=== PATIENT | female | born 1980 | race Caucasian/White ===

== ENCOUNTER 2016-04-17 08:14 | Inpatient (IN) | payer MEDICAID ==
[2016-04-17 09:11] LABS: ABSOLUTE BASOPHILS # (AUTO) 0.1 10^3/uL (0.0-0.2); ABSOLUTE EOSINOPHILS # (AUTO) 0.1 10^3/uL (0.0-0.6); ABSOLUTE LYMPHOCYTES (AUTO) 2.2 10^3/uL (0.5-4.7); ABSOLUTE MONOCYTES (AUTO) 0.8 10^3/uL (0.1-1.4); ABSOLUTE NEUT (AUTO) 6.5 10^3/uL (1.7-8.2); BASOPHILS % (AUTO) 0.8 % (0-2); EOSINOPHILS % (AUTO) 1.4 % (0-6); HEMOGLOBIN 13.7 g/dL (12.0-15.5); HGB HCT DIFFERENCE -0.9; LYMPHOCYTES % (AUTO) 22.6 % (13-45); MEAN CORPUSCULAR HEMOGLOBIN 27.4 pg (27.0-33.4); MEAN CORPUSCULAR HGB CONC 32.5 g/dL (32.0-36.0); MEAN CORPUSCULAR VOLUME 84 fl (80-97); MONOCYTES % (AUTO) 8.1 % (3-13); RED BLOOD COUNT 4.99 10^6/uL (3.72-5.28); RED CELL DISTRIBUTION WIDTH 14.4 % (11.5-14.0); SEGMENTED NEUTROPHILS % (AUTO) 67.1 % (42-78); WHITE BLOOD COUNT 9.6 10^3/uL (4.0-10.5)
[2016-04-17 09:26] LABS: ALANINE AMINOTRANSFERASE 39 U/L (9-52); ALBUMIN 4.5 g/dL (3.5-5.0); ALKALINE PHOSPHATASE 68 U/L (38-126); ANION GAP 10 (5-19); ASPARTATE AMINO TRANSFERASE 35 U/L (14-36); BILIRUBIN,TOTAL 0.5 mg/dL (0.2-1.3); BLOOD UREA NITROGEN 11 mg/dL (7-20); CALCIUM 9.1 mg/dL (8.4-10.2); CARBON DIOXIDE 28 mmol/L (22-30); CHLORIDE 106 mmol/L (98-107); CREATININE RESULT 0.66 mg/dL (0.52-1.25); GLUCOSE 93 mg/dL (75-110); LIPASE 34.9 U/L (23-300); SODIUM 144.4 mmol/L (137-145); TOTAL PROTEIN 7.7 g/dL (6.3-8.2)
[2016-04-17 09:43] LABS: APPEARANCE,URINE CLOUDY; BILIRUBIN,URINE NEGATIVE (NEGATIVE); GLUCOSE, URINE NEGATIVE (NEGATIVE); KETONES,URINE NEGATIVE (NEGATIVE); LEUKOCYTE ESTERASE,URINE SMALL (NEGATIVE); NITRITE,URINE NEGATIVE (NEGATIVE); PROTEIN,URINE NEGATIVE (NEGATIVE); URINE SPECIFIC GRAVITY 1.025; UROBILINOGEN,URINE NEGATIVE mg/dL (<2.0)
[2016-04-17] MEDS ORDERED: HYDROCODONE/ACETAMINOPHEN 5-325 MG TABLET PO ONE (10:31)
[2016-04-17] MEDS ORDERED: KETOROLAC TROMETHAMINE INJ/PF 30 MG/1 ML SDV IV ONE (10:31)
--- NOTE | 2016-04-17 10:31 | ER Document Report ---
ED GI/ - General Chief Complaint: Abdominal Pain Stated Complaint: ABDOMINAL PAIN Notes: The patient is a 35-year-old female (spontaneous miscarriages), presents with 1 day of right lower quadrant abdominal pain. She says that the pain is worse when she places pressure on it. She has never had this in the past. Took Motrin without much relief. Denies vaginal discharge, vaginal bleeding, fevers, dysuria, flank pain, nausea, vomiting, back pain or rash. TRAVEL OUTSIDE OF THE [place] IN LAST 30 DAYS: No - Related Data Allergies/Adverse Reactions: Penicillins Allergy (Severe, Verified 04/17/16 08:17) stop breathing, hives Sulfa (Sulfonamide Antibiotics) Allergy (Severe, Verified 04/17/16 08:17) Hives Metal Allergy (Uncoded 04/17/16 08:17) Home Medications: Current Home Medications No Home Medications 04/17/16 [History] Past Medical History - General Information source: Patient - Social History Smoking Status: Never Smoker Chew tobacco use (# tins/day): No Frequency of alcohol use: None Drug Abuse: None Family History: Reviewed & Not Pertinent Patient has suicidal ideation: No Patient has homicidal ideation: No - Past Medical History Cardiac Medical History: Denies: Hx Coronary Artery Disease, Hx Heart Attack, Hx Hypertension Pulmonary Medical History: Denies: Hx Asthma, Hx Bronchitis, Hx COPD, Hx Pneumonia Neurological Medical History: Denies: Hx Cerebrovascular Accident, Hx Seizures Renal/ Medical History: Denies: Hx Peritoneal Dialysis Musculoskeltal Medical History: Denies Hx Arthritis Past Surgical History: Reports: Hx Gynecologic Surgery - LEEP - Immunizations Immunizations up to date: Yes Hx Diphtheria, Pertussis, Tetanus Vaccination: No - Unsure Review of Systems - Review of Systems Notes: REVIEW OF SYSTEMS: CONSTITUTIONAL: -fevers, -chills EENT: -eye pain, -difficulty swallowing, -nasal congestion CARDIOVASCULAR: -chest pain, -syncope. RESPIRATORY: -cough, -SOB GASTROINTESTINAL: +abdominal pain, -nausea, -vomiting, -diarrhea GENITOURINARY: -dysuria, -hematuria MUSCULOSKELETAL: -back pain, -neck pain SKIN: -rash or skin lesions. HEMATOLOGIC: -easy bruising or bleeding. LYMPHATIC: -swollen, enlarged glands. NEUROLOGICAL: -altered mental status or loss of consciousness, -headache, - neurologic symptoms PSYCHIATRIC: -anxiety, -depression. ALL OTHER SYSTEMS REVIEWED AND NEGATIVE. Physical Exam - Vital signs Vitals: Pulse BP Pulse Ox 64 119/77 98 04/17/16 13:47 04/17/16 13:47 04/17/16 13:47 Temp 98.0, Pulse 85, BP 139/84, RR 16, Pulse Ox 99% on RA Interpretation: Normal - Notes Notes: PHYSICAL EXAMINATION: GENERAL: Well-appearing, well-nourished and in no acute distress. HEAD: Atraumatic, normocephalic. EYES: Pupils equal round and reactive to light, extraocular movements intact, sclera anicteric, conjunctiva are normal. ENT: nares patent, oropharynx clear without exudates. Moist mucous membranes. NECK: Normal range of motion, supple without lymphadenopathy LUNGS: Breath sounds clear to auscultation bilaterally and equal. No wheezes rales or rhonchi. HEART: Regular rate and rhythm without murmurs ABDOMEN: RLQ tenderness. Soft, normoactive bowel sounds. No guarding, no rebound. No masses appreciated. : Non-tender right and left adnexal tenderness. No vaginal discharge. No CMT. EXTREMITIES: Normal range of motion, no pitting or edema. No cyanosis. NEUROLOGICAL: Cranial nerves grossly intact. Normal speech, normal gait. Normal sensory, motor, and reflex exams. PSYCH: Normal mood, normal affect. SKIN: Warm, Dry, normal turgor, no rashes or lesions noted. Course - Re-evaluation Re-evalutation: Concern for ovarian torsion with right lower quadrant abdominal pain. Ultrasound shows left ovarian cysts but no right ovarian cyst. Good blood flow and no evidence of torsion. CT obtained to assess for appendicitis due to the abdominal tenderness in the right lower quadrant. CT does not show any appendicitis but does show a possible left ovarian abscess versus malignancy with large fluid collection in the right lower quadrant. Spoke to Dr. Perdue and he has accepted patient as inpatient for further evaluation of this ovarian abscess versus malignancy. She is denying any current pain other than a very mild frontal headache, which she has had in the past. - Vital Signs Vital signs: Temp Pulse Resp BP Pulse Ox 97.5 F 76 16 138/85 H 98 04/17/16 17:06 04/17/16 16:59 04/17/16 16:59 04/17/16 16:59 04/17/16 16:59 - Laboratory Result Diagrams: 04/17/16 08:56 04/17/16 08:56 Laboratory results interpreted by me: 04/17/16 04/17/16 08:56 09:15 RDW 14.4 H Ur Leukocyte Esterase SMALL H Urine Ascorbic Acid 40 H Discharge - Discharge Clinical Impression: Left tubo-ovarian abscess Condition: Stable Disposition: ADMITTED INPATIENT Admitting Provider: Dr. Escalante Unit Admitted: Labor and Delivery
[2016-04-17] MEDS ORDERED: NORMAL SALINE 1000 ML 1,000 ML IV ONE (16:06)
[2016-04-17] MEDS ORDERED: METRONIDAZOLE 500 MG/NS RTU 100 ML IV ONE (16:12)
[2016-04-17] MEDS ORDERED: ONDANSETRON HCL INJ/PF 4 MG/2 ML SDV IV PRN (18:15)
[2016-04-17] MEDS ORDERED: ACETAMINOPHEN 325 MG TABLET PO PRN (18:15)
[2016-04-17] MEDS ORDERED: CLINDAMYCIN 900 MG/D5W RTU 50 ML IV ONE (19:00)
[2016-04-17] MEDS ORDERED: CIPROFLOXACIN 400 MG/D5W RTU 200 ML IV SCH (22:00)
[2016-04-17] MEDS: GENTAMICIN SULFATE 160 MG in DEXTROSE 5%-WATER 100 ML IV SCH (22:04)
[2016-04-17] MEDS: ZOLPIDEM TARTRATE 5 MG TABLET PO PRN (22:04)
[2016-04-18 01:24] LABS: CHLAM PCR NOT DETECTED (NOT DETECT)
[2016-04-18] MEDS: CLINDAMYCIN 900 MG/D5W RTU 50 ML IV SCH ×3 (03:56→18:09)
[2016-04-18] MEDS: GENTAMICIN SULFATE 160 MG in DEXTROSE 5%-WATER 100 ML IV SCH ×3 (06:11→21:32)
[2016-04-18 06:57] LABS: ABSOLUTE EOSINOPHILS # (AUTO) 0.1 10^3/uL (0.0-0.6); ABSOLUTE LYMPHOCYTES (AUTO) 1.9 10^3/uL (0.5-4.7); ABSOLUTE MONOCYTES (AUTO) 0.6 10^3/uL (0.1-1.4); ABSOLUTE NEUT (AUTO) 5.6 10^3/uL (1.7-8.2); BASOPHILS % (AUTO) 0.5 % (0-2); EOSINOPHILS % (AUTO) 1.7 % (0-6); HEMATOCRIT 38.7 % (36.0-47.0); HEMOGLOBIN 12.7 g/dL (12.0-15.5); HGB HCT DIFFERENCE -0.6; LYMPHOCYTES % (AUTO) 22.8 % (13-45); MEAN CORPUSCULAR HEMOGLOBIN 27.9 pg (27.0-33.4); MEAN CORPUSCULAR HGB CONC 32.9 g/dL (32.0-36.0); MEAN CORPUSCULAR VOLUME 85 fl (80-97); MONOCYTES % (AUTO) 7.1 % (3-13); RED BLOOD COUNT 4.57 10^6/uL (3.72-5.28); RED CELL DISTRIBUTION WIDTH 14.4 % (11.5-14.0); SEGMENTED NEUTROPHILS % (AUTO) 67.9 % (42-78); WHITE BLOOD COUNT 8.2 10^3/uL (4.0-10.5)
[2016-04-18] MEDS ORDERED: OXYCODONE-ACETAMINOPHEN 5-325 MG TABLET PO PRN (09:58)
--- NOTE | 2016-04-18 10:18 | PDOC PROGRESS REPORT ---
Subjective Progress Note for:: 04/18/16 Subjective:: still c/o pain with movement. no nausea or vomiting. also c/o headache (has h/o of migraines and states this feels like mild one) Physical Exam - Physical Exam Vital Signs: Temp Pulse Resp BP Pulse Ox 98.4 F 78 20 108/58 L 98 04/18/16 04:00 04/18/16 04:00 04/18/16 04:00 04/18/16 04:00 04/18/16 04:00 Intake & Output 04/17/16 04/18/16 04/19/16 06:59 06:59 06:59 Intake Total 500 Balance 500 Weight 102.4 kg General appearance: PRESENT: no acute distress, cooperative Respiratory exam: PRESENT: clear to auscultation mike Cardiovascular exam: PRESENT: RRR GI/Abdominal exam: PRESENT: normal bowel sounds, soft, tenderness - tender rlq. no guarding or rebound. ABSENT: distended, guarding, mass, organolmegaly, rebound Extremities exam: PRESENT: calf tenderness Result Laboratory Results: 04/18/16 06:18 04/18/16 06:18 WBC 8.2 RBC 4.57 Hgb 12.7 Hct 38.7 MCV 85 MCH 27.9 MCHC 32.9 RDW 14.4 H Plt Count 287 Seg Neutrophils % 67.9 Lymphocytes % 22.8 Monocytes % 7.1 Eosinophils % 1.7 Basophils % 0.5 Absolute Neutrophils 5.6 Absolute Lymphocytes 1.9 Absolute Monocytes 0.6 Absolute Eosinophils 0.1 Absolute Basophils 0.0 Impressions: Pelvis Ultrasound 04/17/16 10:05 IMPRESSION: Complex left ovarian cyst as noted above. Followup recommendations are as noted below. Other findings as noted above Abdomen/Pelvis CT 04/17/16 13:01 IMPRESSION: Multiloculated the cystic lesion seen in the region of the left adnexa which could represent underlying abscess versus cystic malignancy though abscess is favored in this case. There appears to be of inflammatory changes surrounding the lesion. There also appears to be separate fluid collections in the right lower quadrant and right mid abdomen which appear to connected to this larger cystic collection as detailed above. Assessment & Plan - Diagnosis (1) Left tubo-ovarian abscess Is this a current diagnosis for this admission?: YesPlan: plan to continue iv antibiotics for at least full 24 hours. if no fever, nausea , vomiting will d/c home on antibiotics
[2016-04-18] MEDS: RINGERS SOLUTION,LACTATED 1,000 ML IV PRN (10:42)
[2016-04-18] MEDS: OXYCODONE-ACETAMINOPHEN 5-325 MG TABLET PO PRN ×2 (10:42→18:14)
[2016-04-18 22:58] LABS: GENTAMICIN-TROUGH 1.8 ug/mL (<2.0)
[2016-04-19] MEDS: ZOLPIDEM TARTRATE 5 MG TABLET PO PRN (00:24)
[2016-04-19 00:55] LABS: GENTAMICIN-PEAK 7.6 ug/mL (5.0-10.0)
[2016-04-19] MEDS: CLINDAMYCIN 900 MG/D5W RTU 50 ML IV SCH (01:10)
[2016-04-19] MEDS: GENTAMICIN SULFATE 160 MG in DEXTROSE 5%-WATER 100 ML IV SCH (05:13)
[2016-04-19] MEDS: OXYCODONE-ACETAMINOPHEN 5-325 MG TABLET PO PRN (06:06)
[2016-04-19] MEDS: RINGERS SOLUTION,LACTATED 1,000 ML IV PRN (08:05)
[2016-04-19 09:05] VITALS: BP 122/77
--- NOTE | 2016-04-19 10:33 | DISCHARGE SUMMARY E ---
Discharge Summary NAME: JAYLENE HENDERSON : 1980 AGE: 35Y ADMITTED: 04/17/2016 DISCHARGED: 04/19/2016 INDICATIONS FOR ADMISSION : Pelvic pain with suspected tuboovarian abscess. HOSPITAL COURSE: The patient is a 35-year-old, G2, P1-0-1-1 who has baseline oligomenorrhea who came in with right lower quadrant pain for a day. She had no fevers or chills. On admission, her white count was 9.6. CT showed an 8.4 x 5.9 x 8-cm cystic lesion in the left adnexa that radiology thought was consistent with tuboovarian abscess. The ultrasound also showed this structure. To my interpretation on ultrasound it looked like a possible hydrosalpinx. The patient remained afebrile throughout the course of her stay and did not have an elevated white count throughout the course of her stay. She had adequate pain control and was tolerating regular diet throughout. She was placed on clindamycin and gentamicin to cover for possible tuboovarian abscess. She had normal GI function and no dysuria. At the time of discharge, she still had some pain, but it was well controlled with Percocet. DISCHARGE DIAGNOSIS: Possible tuboovarian abscess versus left ovarian cystic structure versus hydrosalpinx. PLAN: The patient will be discharged to home on doxycycline 100 mg p.o. b.i.d. for 2 more weeks. She was also given prescriptions for Motrin 800 mg 1 p.o. t.i.d. p.r.n. #50 with no refills and Percocet 5/325 one to two p.o. q.i.d. p.r.n. #30 with no refills. She is advised to be on pelvic rest. Her GC Chlamydia testing was negative and her urine test was negative. She had been oligomenorrheic, but started a period during the course of her hospital stay. She will follow up in 2 weeks. She was offered surgery during the course of her stay, but declined. We discussed that we will need to follow this cystic structure and if it does not resolve, would schedule surgery in an outpatient fashion in 6 weeks or so. DICTATING PHYSICIAN: ISH MEDINA M.D. [id number] PHY#: [id number] ID: [id number] JOB#: [id number] ACCT: [id number] cc:ISH MEDINA M.D. >
== END 2016-04-19 11:15 | disposition home or self-care (01) | DRG 758 ==
LOC: ER 08:14 → UNDOADMIN 16:32 → EH 16:32 → 2N 17:57
PROVIDERS: ADMIT Obstetrics & Gynecology; ATTEND Obstetrics & Gynecology
DX: N70.93 Salpingitis and oophoritis, unspecified (principal); Z68.41 Body mass index [BMI] 40.0-44.9, adult; N91.5 Oligomenorrhea, unspecified; Z88.0 Allergy status to penicillin; Z88.2 Allergy status to sulfonamides; Z91.048 Other nonmedicinal substance allergy status; E66.3 Overweight
CPT/HCPCS: 36415; 74177; 76856; 80053; 80170; 81001; 81025; 83690; 85025; 87491; 87591; 93976; 96374; 99285; J1580; J1885; J2405; J7030; J7120

== ENCOUNTER → 2017-02-10 | Outpatient (CLI) | payer MEDICAID ==
--- NOTE | 2017-02-10 23:10 | EKG REPORT ---
SEVERITY:- ABNORMAL ECG - SINUS RHYTHM NONSPECIFIC T ABNORMALITIES, ANTERIOR LEADS : Confirmed by: Kailey Swann 10-Feb-2017 23:10:12
== END ==
LOC: OD 13:53
PROVIDERS: ATTEND Nurse Practitioner
DX: I10 Essential (primary) hypertension (principal)
CPT/HCPCS: 93005; 93010

== ENCOUNTER 2017-02-17 13:31 | Emergency (ER) | payer MEDICAID ==
[2017-02-17] MEDS ORDERED: HYDROMORPHONE HCL INJ/PF 2 MG/ML AMPULE IV ONE ×2 (14:03→15:50)
[2017-02-17] MEDS ORDERED: ONDANSETRON HCL INJ/PF 4 MG/2 ML SDV IV ONE ×2 (14:03→15:51)
[2017-02-17 14:41] LABS: ABSOLUTE EOSINOPHILS # (AUTO) 0.1 10^3/uL (0.0-0.6); ABSOLUTE LYMPHOCYTES (AUTO) 1.5 10^3/uL (0.5-4.7); ABSOLUTE MONOCYTES (AUTO) 0.7 10^3/uL (0.1-1.4); ABSOLUTE NEUT (AUTO) 5.8 10^3/uL (1.7-8.2); BASOPHILS % (AUTO) 0.3 % (0-2); EOSINOPHILS % (AUTO) 1.2 % (0-6); HEMATOCRIT 40.2 % (36.0-47.0); HGB HCT DIFFERENCE 1.8; LYMPHOCYTES % (AUTO) 18.5 % (13-45); MEAN CORPUSCULAR HEMOGLOBIN 32.6 pg (27.0-33.4); MEAN CORPUSCULAR HGB CONC 34.8 g/dL (32.0-36.0); MEAN CORPUSCULAR VOLUME 94 fl (80-97); MONOCYTES % (AUTO) 8.3 % (3-13); RED BLOOD COUNT 4.28 10^6/uL (3.72-5.28); RED CELL DISTRIBUTION WIDTH 13.2 % (11.5-14.0); SEGMENTED NEUTROPHILS % (AUTO) 71.7 % (42-78); WHITE BLOOD COUNT 8.1 10^3/uL (4.0-10.5)
[2017-02-17 14:57] LABS: ALANINE AMINOTRANSFERASE 52 U/L (9-52); ALKALINE PHOSPHATASE 62 U/L (38-126); ANION GAP 11 (5-19); ASPARTATE AMINO TRANSFERASE 24 U/L (14-36); BILIRUBIN,TOTAL 0.4 mg/dL (0.2-1.3); BLOOD UREA NITROGEN 16 mg/dL (7-20); CALCIUM 9.5 mg/dL (8.4-10.2); CARBON DIOXIDE 30 mmol/L (22-30); CHLORIDE 100 mmol/L (98-107); CREATININE RESULT 0.63 mg/dL (0.52-1.25); GLUCOSE 105 mg/dL (75-110); SODIUM 141.1 mmol/L (137-145); TOTAL PROTEIN 6.6 g/dL (6.3-8.2)
--- NOTE | 2017-02-17 15:09 | ER Document Report ---
ED General - General Chief Complaint: Wound Infection Stated Complaint: POST SURGERY PAIN Time Seen by Provider: 02/17/17 13:50 Mode of Arrival: Ambulatory Information source: Patient Notes: Patient is a 36-year-old female comes emergency room with a complaint of postop infection and pain. Patient states that on the 13th of this month she had internal hernia repair done laparoscopically. Dr. Mateo Lopez performed the surgery. Patient states that one area on the right side of her abdomen shows a small area that appears infected. She states her veplum-gn-tot is a nurse she took a picture and send it to her and she replied that it was possible infection to go to the ER get it checked out. Patient made one attempt to contact the surgeon but has not had a recall back as of this time. Patient states that the area hurts constantly that it hurts to walk and is very tender to touch. She denies any nausea or vomiting since her surgery patient has been improving on her diet been eating and drinking well has denied any fevers no cough or shortness of breath. TRAVEL OUTSIDE OF THE [place] IN LAST 30 DAYS: No - HPI Patient complains to provider of: Postop pain and/infection Onset: Other - 3 days Onset/Duration: Gradual, Persistent Quality of pain: Achy, Sharp Severity: Moderate Pain Level: 3 Associated symptoms: denies: None, Allergy/hay fever, Body/muscle aches, Chest pain, Chills, Nonproductive cough, Productive cough, Diarrhea, Drooling, Earache , Fever, Headache, Hoarseness, Hurts to breath, Leg swelling, Nausea, Vomiting, Sinus pain/drainage, Shortness of breath, Slow to respond, Sore throat, Sweating , Weakness, Other Exacerbated by: Supine, Sitting, Standing, Movement, Walking Relieved by: Other - Position Similar symptoms previously: No Recently seen / treated by doctor: Yes - Related Data Allergies/Adverse Reactions: Penicillins Allergy (Severe, Verified 02/17/17 13:32) stop breathing, hives Sulfa (Sulfonamide Antibiotics) Allergy (Severe, Verified 02/17/17 13:32) Hives Metal Allergy (Uncoded 02/17/17 13:32) Past Medical History - General Information source: Patient Last Menstrual Period: N/a - Social History Smoking Status: Former Smoker Chew tobacco use (# tins/day): No Smoking Education Provided: No Frequency of alcohol use: None Drug Abuse: None Lives with: Family Family History: Reviewed & Not Pertinent Patient has suicidal ideation: No Patient has homicidal ideation: No - Past Medical History Cardiac Medical History: Reports: Hx Hypertension Denies: Hx Coronary Artery Disease, Hx Heart Attack Pulmonary Medical History: Denies: Hx Asthma, Hx Bronchitis, Hx COPD, Hx Pneumonia Neurological Medical History: Denies: Hx Cerebrovascular Accident, Hx Seizures Renal/ Medical History: Denies: Hx Peritoneal Dialysis Musculoskeltal Medical History: Denies Hx Arthritis Psychiatric Medical History: Denies: Hx Depression Past Surgical History: Reports: Hx Gynecologic Surgery - LEEP - Immunizations Immunizations up to date: Yes Hx Diphtheria, Pertussis, Tetanus Vaccination: No - Unsure Review of Systems - Review of Systems Constitutional: No symptoms reported EENT: No symptoms reported Cardiovascular: No symptoms reported Respiratory: No symptoms reported Gastrointestinal: Abdomen distended, Abdominal pain, Nausea Genitourinary: No symptoms reported Female Genitourinary: No symptoms reported Musculoskeletal: No symptoms reported Skin: No symptoms reported Hematologic/Lymphatic: No symptoms reported Neurological/Psychological: No symptoms reported -: Yes All other systems reviewed and negative Physical Exam - Vital signs Vitals: Temp Pulse Resp BP Pulse Ox 98.1 F 91 20 131/84 H 95 02/17/17 13:41 02/17/17 13:41 02/17/17 13:41 02/17/17 13:41 02/17/17 13:41 Interpretation: Hypertensive - General General appearance: Alert, Other - Uncomfortable. - HEENT Head: Normocephalic Eyes: Normal Conjunctiva: Normal Nasal: Normal Mouth/Lips: Normal Mucous membranes: Normal, Moist Pharynx: Normal Neck: Normal - Respiratory Respiratory status: No respiratory distress Chest status: Nontender Breath sounds: Normal. No: Decreased air movement, Nonproductive cough, Productive cough, Rales, Rhonchi, Stridor, Wheezing, Other - Cardiovascular Rhythm: Regular Heart sounds: Normal auscultation Murmur: No - Abdominal Inspection: Morbidly Obese, Other - Termination of patient's external abdomen shows it to be rotund. There are multiple areas of where laparoscopic insertion points were along with the mid incision running from the suprapubic to just below the umbilicus. Distension: Distended. No: No distension, Tympanitic, Fluid wave, Distended bladder, Other Bowel sounds: Normal Tenderness: Tender, McBurney's point, Other - Further examination of the abdomen shows her to have increased discomfort in right lower quadrant up to and including the umbilicus. There is positive peritoneal signs with a positive psoas positive obturator. Organomegaly: No organomegaly - Neurological Neuro grossly intact: Yes Orientation: AAOx4 Michelle Coma Scale Eye Opening: Spontaneous [place] Coma Scale Verbal: Oriented [place] Coma Scale Motor: Obeys Commands Michelle Coma Scale Total: 15 - Skin Skin Temperature: Warm Skin Moisture: Dry Skin Color: Normal, [place], Other - Examination of patient's area of concern is in the right lower quadrant just about 7:00 from the umbilicus small area where a incisional cut was made to advance the fiberoptics. The area itself is closed and healed there is a slight probable 1 cm or less circumference erythema with the surgical cut in the middle. There is no opening to this. There is no drainage. There is moderate to/severe tenderness to the area. Patient is nontender at the site or superficial touching of the area. Any amount of pressure applied though increases pain significantly. Patient also has rebound in that right lower quadrant area. Course - Vital Signs Vital signs: Temp Pulse Resp BP Pulse Ox 98.1 F 91 20 131/84 H 95 02/17/17 13:41 02/17/17 13:41 02/17/17 13:41 02/17/17 13:41 02/17/17 13:41 - Laboratory Result Diagrams: 02/17/17 14:25 02/17/17 14:25 Laboratory results interpreted by me: 02/17/17 14:52 Urine Ascorbic Acid 20 H - Diagnostic Test Radiology reviewed: Reports reviewed - CT of the abdomen and pelvis showed no acute findings. They did find edema/surgical scarring on the right side we had the discomfort and pain. There are no abnormalities there is no abscesses and patient's blood work all looks good. We will treat her for a superficial cellulitis around the wound site but at this point there is nothing else to treat. Patient will continue with her pain medications at home she will contact the surgeon tomorrow. - Transfer of Care Notes: 02/17/17 15:13 Patient's other significant history shows that she has had a total hysterectomy secondary to ovarian cancer. She finished her chemotherapy in September and has since been doing well. She has had the internal hernia repair as reported. This just discomfort comes with concerned that she still has her appendix and has peritoneal signs. Currently patient is afebrile but the amount of significant discomfort in this area is worrisome. Given recent history of the internal hernia repair laparoscopically the possibility of abscess is still prevalent. Though it is unlikely. We will do a CT of the abdomen pelvis to more get ascertain a better picture of the internal portion. Discharge - Discharge Clinical Impression: Postoperative pain Abdominal pain Qualifiers: Abdominal location: right lower quadrant Qualified Code(s): R10.31 - Right lower quadrant pain Postoperative wound cellulitis Qualifiers: Encounter type: initial encounter Qualified Code(s): T81.4XXA - Infection following a procedure, initial encounter Disposition: HOME, SELF-CARE Instructions: Abdominal Pain ([facility]), Soap Cleansing ([facility]), Cellulitis ([facility]) Additional Instructions: Home and rest. Medication as we discussed. Contact the surgeon tomorrow just to inform them of what is going on. At this point were going to treat just a superficial skin cellulitis near the wound site. Should you have any concerns or problems she can return to ER for a recheck. Forms: Elevated Blood Pressure
[2017-02-17 15:13] LABS: APPEARANCE,URINE SLIGHTLY-CLOUDY; BILIRUBIN,URINE NEGATIVE (NEGATIVE); GLUCOSE, URINE NEGATIVE (NEGATIVE); KETONES,URINE NEGATIVE (NEGATIVE); LEUKOCYTE ESTERASE,URINE NEGATIVE (NEGATIVE); NITRITE,URINE NEGATIVE (NEGATIVE); PROTEIN,URINE NEGATIVE (NEGATIVE); URINE SPECIFIC GRAVITY 1.025; UROBILINOGEN,URINE NEGATIVE mg/dL (<2.0)
--- NOTE | 2017-02-17 16:20 | RADIOLOGY REPORT (SQ) ---
EXAM DESCRIPTION: CT ABD/PELVIS WITH IV ONLY COMPLETED DATE/TIME: 02/17/2017 4:03 pm REASON FOR STUDY: Post op layal Right lower quad pain/ Still has appen COMPARISON: CT dated 04/17/2016. Ultrasound dated 05/13/2016. TECHNIQUE: CT scan of the abdomen and pelvis performed using helical scanning technique with dynamic intravenous contrast injection. No oral contrast. Images reviewed with lung, soft tissue, and bone windows. Reconstructed coronal and sagittal MPR images reviewed. Delayed images for evaluation of the urinary system also acquired. All images stored on PACS. All CT scanners at this facility use dose modulation, iterative reconstruction, and/or weight based d osing when appropriate to reduce radiation dose to as low as reasonably achievable (ALARA). [facility]: Dose Right [facility]: CareDose [facility]: Dose Right [facility]: Teradose 4D [facility]: [employer] CONTRAST TYPE AND DOSE: contrast/concentration: Isovue 370.00 mg/ml; Total Contrast Delivered: 100.0 ml; Total Saline Delivered: 45.0 ml RENAL FUNCTION: BUN 16 creatinine 0.63. RADIATION DOSE: CT Rad equipment meets quality standard of care and radiation dose reduction techniq ues were employed. CTDIvol: 17.2 - 20.0 mGy. DLP: 1962 mGy-cm.. LIMITATIONS: None. FINDINGS: LOWER CHEST: No significant findings. No nodules or infiltrates. LIVER: Normal size. No masses. Previously seen cystic lesion in the right lobe has decreased in size , now measuring 1 cm. No dilated ducts. SPLEEN: Normal size. No focal lesions. PANCREAS: No masses. No significant calcifications. No adjacent inflammation or peripancreatic fluid collections. Pancreatic duct not dilated. GALLBLADDER: No identified stones by CT criteria. No inflammatory changes to suggest cholecystitis. ADRENAL GLANDS: No significant masses or asymmetry. RIGHT KIDNEY AND URETER: 1 cm cortical cyst. No solid masses. No significant calcifications. No hydronephrosis or hydroureter. LEFT KIDNEY AND URETER: No solid masses. No significant calcifications. No hydronephrosis or hydr oureter. AORTA AND VESSELS: No aneurysm. No dissection. Renal arteries, SMA, celiac without stenosis. RETROPERITONEUM: No retroperitoneal adenopathy, hemorrhage or masses. BOWEL AND PERITONEAL CAVITY: No masses or inflammatory changes. No free fluid or peritoneal masses. APPENDIX: Normal. PELVIS: No mass. No free fluid. Normal bladder. ABDOMINAL WALL: No masses. No hernias. Surgical changes with mesh in the anterior abdominal wall. I ndistinct increased density in the subcutaneous fat of the anterior abdominal wall. This follows a l inear fashion in the midline presumably along the surgical incision. No abnormal fluid collection. BONES: No significant or acute findings. OTHER: No other significant finding. IMPRESSION: 1. SURGICAL CHANGES IN THE ANTERIOR ABDOMINAL WALL. INDISTINCT INCREASED DENSITY IN THE SUBCUTANEOUS FAT HAS THE APPEARANCE OF POSTOPERATIVE EDEMA/SCARRING. NO EVIDENCE OF ABSCESS OR FOCAL FLUID COLLE CTION. 2. PREVIOUSLY SEEN PELVIC MASS IS NO LONGER PRESENT. 3. SMALL CYSTIC LESION IN THE RIGHT LOBE OF THE LIVER HAS DECREASED IN SIZE, CURRENTLY MEASURING 1 CM WITH PRIOR MEASUREMENT OF 2.3 CM. 4. 1 CM CORTICAL CYST IN THE RIGHT KIDNEY UNCHANGED. 5. NO OTHER SIGNIFICANT OR ACUTE FINDING IN THE ABDOMEN OR PELVIS ON CT SCAN WITH IV CONTRAST. TECHNICAL DOCUMENTATION: JOB ID: [id number] Quality ID # [id number]: Final reports with documentation of one or more dose reduction techniques (e.g., Au tomated exposure control, adjustment of the mA and/or kV according to patient size, use of iterative reconstruction technique) 2010 [employer]- All Rights Reserved
[2017-02-17 18:16] VITALS: BP 132/90
== END 2017-02-17 18:36 | disposition home or self-care (01) ==
LOC: ER 13:31
DX: G89.18 Other acute postprocedural pain (principal); R10.31 Right lower quadrant pain; T81.4XXA Infection following a procedure, initial encounter; Z87.891 Personal history of nicotine dependence
CPT/HCPCS: 36591; 99284; 96374; 96375; 36415; 85025; 80053; 81001; 74177; J1170; J2405

== ENCOUNTER 2017-03-11 17:45 | Emergency (ER) | payer MEDICAID ==
[2017-03-11 17:54] VITALS: BP 132/84
[2017-03-11] MEDS ORDERED: OXYCODONE-ACETAMINOPHEN 5-325 MG TABLET PO ONE (19:10)
--- NOTE | 2017-03-11 19:11 | ER Document Report ---
HPI - HPI Patient complains to provider of: Low back pain Onset: Yesterday Onset/Duration: Sudden Quality of pain: Sharp, Stabbing Pain Level: 5 Context: Patient states that she bent over yesterday and had a sudden sharp pain to the lower back. Patient states that pain will occasionally radiate to the anterior aspect of bilateral lower legs to the level of her knee. Patient does report a history of chronic low back pain in the same location that will flareup several times each year. Patient denies any recent traumatic injury. Patient denies any fever. Patient denies any paresthesia. Patient denies any urinary retention or incontinence. Associated Symptoms: Other - Low back pain. denies: Fever Exacerbated by: Standing, Movement, Walking Relieved by: Denies Similar symptoms previously: Yes Recently seen / treated by doctor: No - ROS ROS below otherwise negative: Yes Systems Reviewed and Negative: Yes All other systems reviewed and negative - CONSTITUTIONAL Constitutional: DENIES: Fever, Chills - NEURO Neurology: DENIES: Weakness - GASTROINTESTINAL Gastrointestinal: DENIES: Nausea, Patient vomiting - URINARY Urinary: DENIES: Dysuria, Urgency, Frequency - REPRODUCTIVE Reproductive: DENIES: : - MUSCULOSKELETAL Musculoskeletal: REPORTS: Extremity pain, Back Pain - DERM Skin Color: Normal Skin Problems: None Past Medical History - General Information source: Patient - Social History Smoking Status: Former Smoker Chew tobacco use (# tins/day): No Frequency of alcohol use: None Drug Abuse: None Occupation: [employer] Lives with: Family Family History: Reviewed & Not Pertinent Patient has suicidal ideation: No Patient has homicidal ideation: No - Past Medical History Cardiac Medical History: Reports: Hx Hypertension Denies: Hx Coronary Artery Disease, Hx Heart Attack Pulmonary Medical History: Denies: Hx Asthma, Hx Bronchitis, Hx COPD, Hx Pneumonia Neurological Medical History: Denies: Hx Cerebrovascular Accident, Hx Seizures Renal/ Medical History: Denies: Hx Peritoneal Dialysis Malignancy Medical History: Reports: Hx Ovarian Cancer Musculoskeltal Medical History: Denies Hx Arthritis Psychiatric Medical History: Denies: Hx Depression Past Surgical History: Reports: Hx Gynecologic Surgery - LEEP, Hx Herniorrhaphy , Hx Hysterectomy - Immunizations Immunizations up to date: Yes Hx Diphtheria, Pertussis, Tetanus Vaccination: No - Unsure Vertical Provider Document - CONSTITUTIONAL Agree With Documented VS: Yes Exam Limitations: No Limitations General Appearance: WD/WN, No Apparent Distress Notes: PHYSICAL EXAMINATION: GENERAL: Well-appearing, well-nourished and in no acute distress. HEAD: Atraumatic, normocephalic. EYES: sclera clear, anicteric, conjunctiva are normal. ENT: nares patent, Moist mucous membranes. NECK: Normal range of motion, supple no lymphadenopathy LUNGS: respirations unlabored HEART: Regular rate and rhythm without murmurs EXTREMITIES: Normal range of motion, no pitting or edema. No cyanosis. Gait normal, pt ambulates without difficulty BACK: Lower lumbar midline tenderness, no deformities or step-offs. No CVA tenderness. NEUROLOGICAL: Cranial nerves grossly intact. Normal speech, normal gait. No saddle anesthesia. No foot drop, 2+ patellar reflexes PSYCH: Normal mood, normal affect. SKIN: Warm, Dry, normal turgor, no rashes or lesions noted. - INFECTION CONTROL TRAVEL OUTSIDE OF THE [place] IN LAST 30 DAYS: No - RESPIRATORY O2 Sat by Pulse Oximetry: 99 Course - Re-evaluation Re-evalutation: 03/11/17 20:31 The patient presents with low back pain without signs of spinal cord compression , cauda equina syndrome, infection, aneurysm, or other serious etiology. The patient is neurologically intact. Given the extremely risk of these diagnoses further testing and evaluation for these possibilities does not appear to be indicated at this time. Patient has been instructed to return if the symptoms worsen or change in any way. 03/11/17 20:32 Controlled substance database reviewed - Vital Signs Vital signs: Temp Pulse Resp BP Pulse Ox 97.9 F 91 16 132/84 H 99 03/11/17 17:51 03/11/17 17:51 03/11/17 17:51 03/11/17 17:51 03/11/17 17:51 - Diagnostic Test Radiology reviewed: Reports reviewed Discharge - Discharge Clinical Impression: Low back pain Qualifiers: Chronicity: acute Back pain laterality: bilateral Sciatica presence: with sciatica Sciatica laterality: sciatica laterality unspecified Qualified Code(s) : M54.40 - Lumbago with sciatica, unspecified side Condition: Stable Disposition: HOME, SELF-CARE Instructions: Ice Packs ([facility]), Low Back Pain ([facility]), Oral Narcotic Medication ( [facility]) Additional Instructions: Return immediately for any new or worsening symptoms Followup with your primary care provider, call tomorrow to make a followup appointment Prescriptions: Oxycodone HCl/Acetaminophen [Percocet 5-325 mg Tablet] 1 tab PO ASDIR PRN #15 tablet PRN Reason: Forms: Return to Work Referrals: BENJA AGRAWAL NP-C [Primary Care Provider] - Follow up tomorrow
--- NOTE | 2017-03-11 19:49 | RADIOLOGY REPORT (SQ) ---
EXAM DESCRIPTION: L SPINE WHOLE COMPLETED DATE/TIME: 03/11/2017 7:41 pm REASON FOR STUDY: low back pain COMPARISON: None. NUMBER OF VIEWS: Five views including obliques. TECHNIQUE: AP, lateral, oblique, and sacral radiographic images acquired of the lumbar spine. LIMITATIONS: None. FINDINGS: MINERALIZATION: Normal. SEGMENTATION: Normal. No transitional anatomy. ALIGNMENT: Normal. VERTEBRAE: Maintained height. No fracture or worrisome bone lesion. DISCS: Preserved height. No significant osteophytes or end plate irregularity. POSTERIOR ELEMENTS: Pedicles and facets are intact. No pars defect or posterior arch defects. HARDWARE: None in the spine. PARASPINAL SOFT TISSUES: Normal. PELVIS: Intact as visualized. No fractures or worrisome bone lesions. SI joints intact. OTHER: No other significant finding. IMPRESSION: NORMAL 5 VIEW LUMBAR SPINE. TECHNICAL DOCUMENTATION: JOB ID: [id number] [employer]- All Rights Reserved
== END 2017-03-11 20:54 | disposition home or self-care (01) ==
LOC: ER 17:45
DX: M54.40 Lumbago with sciatica, unspecified side (principal); I10 Essential (primary) hypertension; Z85.43 Personal history of malignant neoplasm of ovary
CPT/HCPCS: 72110; 99283

== ENCOUNTER 2017-09-01 11:13 | Emergency (ER) | payer BC, MEDICAID ==
[2017-09-01] MEDS ORDERED: MORPHINE SULFATE 10 MG/ML INJ IV ONE (12:16)
--- NOTE | 2017-09-01 12:17 | ER Document Report ---
ED General - General Chief Complaint: Abdominal Pain Stated Complaint: STOMACH PAIN/HERNIA REPAIR COMPLICATION Time Seen by Provider: 09/01/17 12:09 Mode of Arrival: Ambulatory Information source: Patient Notes: 36-year-old female presents emergency department complaints of abdominal pain since her hernia repair surgery done in January 2017. Patient states that she had an incisional hernia that was repaired at this time. She states that she followed up with her surgeon, Dr. Lopez, numerous times and was told that the pain would resolve in time. Patient states that it is not resolving. It is a constant dull aching sensation in her abdomen. Patient does have a history of ovarian cancer with metastasis. She follows up with Dr. Webb, oncology, at [facility]. Patient states that she will underwent chemotherapy. Her last dose of chemotherapy was in September 2016. Patient states that the cancer is in remission. Last time she has seen her oncologist was in April 2017. Patient says she's been getting regular CT scans. No remission of cancer. She has had a hysterectomy. Patient denies any nausea, vomiting, diarrhea, constipation, dysuria, hematuria, melena, hematochezia, chest pain, shortness of breath. Patient states that she just has chronic abdominal pain that started after her hernia repair surgery. TRAVEL OUTSIDE OF THE [place] IN LAST 30 DAYS: No - HPI Onset: Other - 7 months Onset/Duration: Gradual, Constant, Persistent Quality of pain: Achy, Throbbing Severity: Mild Associated symptoms: None Exacerbated by: Denies Relieved by: Denies Similar symptoms previously: Yes Recently seen / treated by doctor: No - Related Data Allergies/Adverse Reactions: Penicillins Allergy (Severe, Verified 09/01/17 11:15) stop breathing, hives Sulfa (Sulfonamide Antibiotics) Allergy (Severe, Verified 09/01/17 11:15) Hives Metal Allergy (Uncoded 09/01/17 11:15) Past Medical History - General Information source: Patient - Social History Smoking Status: Never Smoker Family History: Reviewed & Not Pertinent - Past Medical History Cardiac Medical History: Reports: Hx Hypertension Denies: Hx Coronary Artery Disease, Hx Heart Attack Pulmonary Medical History: Denies: Hx Asthma, Hx Bronchitis, Hx COPD, Hx Pneumonia Neurological Medical History: Denies: Hx Cerebrovascular Accident, Hx Seizures Renal/ Medical History: Denies: Hx Peritoneal Dialysis Malignancy Medical History: Reports: Hx Ovarian Cancer Musculoskeltal Medical History: Denies Hx Arthritis Psychiatric Medical History: Denies: Hx Depression Past Surgical History: Reports: Hx Gynecologic Surgery - LEEP, Hx Herniorrhaphy , Hx Hysterectomy - Immunizations Immunizations up to date: Yes Hx Diphtheria, Pertussis, Tetanus Vaccination: No - Unsure Review of Systems - Review of Systems Constitutional: No symptoms reported EENT: No symptoms reported Cardiovascular: No symptoms reported Respiratory: No symptoms reported Gastrointestinal: Abdominal pain Genitourinary: No symptoms reported Female Genitourinary: No symptoms reported Musculoskeletal: No symptoms reported Skin: No symptoms reported Hematologic/Lymphatic: No symptoms reported Neurological/Psychological: No symptoms reported -: Yes All other systems reviewed and negative Physical Exam - Vital signs Vitals: Temp Pulse Resp BP Pulse Ox 99 F 105 H 18 135/103 H 98 09/01/17 11:35 09/01/17 11:35 09/01/17 11:35 09/01/17 11:35 09/01/17 11:35 Interpretation: Normal, Tachycardic - Notes Notes: PHYSICAL EXAMINATION: GENERAL: Well-appearing, well-nourished and in no acute distress. HEAD: Atraumatic, normocephalic. EYES: Pupils equal round and reactive to light, extraocular movements intact, conjunctiva are normal. ENT: Nares patent, oropharynx clear without exudates. Moist mucous membranes. NECK: Normal range of motion, supple without lymphadenopathy LUNGS: Breath sounds clear to auscultation bilaterally and equal. No wheezes rales or rhonchi. HEART: Regular rate and rhythm without murmurs ABDOMEN: Soft, nontender, nondistended abdomen. No guarding, no rebound. No masses appreciated. Female : deferred Musculoskeletal: Normal range of motion, no pitting or edema. No cyanosis. NEUROLOGICAL: Cranial nerves grossly intact. Normal speech, normal gait. Normal sensory, motor exams PSYCH: Normal mood, normal affect. SKIN: Warm, Dry, normal turgor, no rashes or lesions noted. Course - Re-evaluation Re-evalutation: 09/01/17 15:04 CT abd/pelvis done. Recurrent [employer] malignancy appreciated. Radiology notes L pleural effusion, ascites, omental tumor, adenopathy, and a mass at the vaginal cuff. Possible partial small bowel obstruction. Patient denies nausea, vomiting. Symptoms have been constant for months. Patient says that she's been following up with her oncologist, Dr. Webb. Her last appointment was in April 2017. She has another follow up appointment scheduled for this month. I will contact the oncologist to discuss the new findings and plan of care. 09/01/17 16:09 I contacted [facility]. Dr. Salas is drafter directional survey for Dr. Webb. 09/01/17 16:[address] Salas. I discussed the CT findings. Patient requesting discharge home. Dr. Salas is ok with the patient being discharged. She would like the patient to be evaluated by Dr. Webb next week. She said if the patient has worsening symptoms then to go to the [facility] ED and she'll admit the patient. I discussed the plan with the patient. She's agreeable with discharge home. Patient does not want transfer at this time. I will prescribe her zofran and percocet. Patient told to take medication as directed, to follow up with her oncologist as scheduled, and to return for worsening symptoms. - Vital Signs Vital signs: Temp Pulse Resp BP Pulse Ox 99 F 105 H 18 135/103 H 98 09/01/17 11:35 09/01/17 11:35 09/01/17 11:35 09/01/17 11:35 09/01/17 11:35 - Laboratory Result Diagrams: 09/01/17 12:20 09/01/17 12:20 Laboratory results interpreted by me: 09/01/17 09/01/17 12:20 14:08 BUN 6 L Ur Leukocyte Esterase LARGE H Urine Ascorbic Acid 40 H Discharge - Discharge Clinical Impression: Vaginal mass, Omental mass, Pleural effusion Abdominal pain Qualifiers: Abdominal location: unspecified location Qualified Code(s): R10.9 - Unspecified abdominal pain Ascites Qualifiers: Ascites type: malignant Qualified Code(s): R18.0 - Malignant ascites Condition: Stable Disposition: HOME, SELF-CARE Instructions: Abdominal Pain ([facility]), Oral Narcotic Medication ([facility]), Antinausea Medication ([facility]) Prescriptions: Ondansetron [Zofran Odt 4 mg Tablet] 1 - 2 tab PO Q4H PRN #15 tab.rapdis PRN Reason: For Nausea/Vomiting Oxycodone HCl/Acetaminophen [Percocet 5-325 mg Tablet] 1 - 2 tab PO Q4H PRN #15 tablet PRN Reason: Referrals: BENJA AGRAWAL, CAR STARTER-C [Primary Care Provider] - Follow up as needed
[2017-09-01 13:06] LABS: ABSOLUTE EOSINOPHILS # (AUTO) 0.1 10^3/uL (0.0-0.6); ABSOLUTE LYMPHOCYTES (AUTO) 1.9 10^3/uL (0.5-4.7); ABSOLUTE MONOCYTES (AUTO) 0.7 10^3/uL (0.1-1.4); ABSOLUTE NEUT (AUTO) 5.1 10^3/uL (1.7-8.2); BASOPHILS % (AUTO) 0.5 % (0-2); HEMATOCRIT 42.5 % (36.0-47.0); HEMOGLOBIN 14.4 g/dL (12.0-15.5); LYMPHOCYTES % (AUTO) 23.8 % (13-45); MEAN CORPUSCULAR HEMOGLOBIN 30.2 pg (27.0-33.4); MEAN CORPUSCULAR HGB CONC 33.8 g/dL (32.0-36.0); MEAN CORPUSCULAR VOLUME 89 fl (80-97); MONOCYTES % (AUTO) 9.5 % (3-13); PLATELET COUNT 301 10^3/uL (150-450); RED BLOOD COUNT 4.77 10^6/uL (3.72-5.28); RED CELL DISTRIBUTION WIDTH 13.4 % (11.5-14.0); SEGMENTED NEUTROPHILS % (AUTO) 65.2 % (42-78); TOTAL CELLS COUNTED % (AUTO) 100 %; WHITE BLOOD COUNT 7.9 10^3/uL (4.0-10.5)
[2017-09-01 13:25] LABS: ALANINE AMINOTRANSFERASE 24 U/L (9-52); ALBUMIN 3.8 g/dL (3.5-5.0); ALKALINE PHOSPHATASE 65 U/L (38-126); ANION GAP 12 (5-19); ASPARTATE AMINO TRANSFERASE 22 U/L (14-36); BILIRUBIN,DIRECT 0.3 mg/dL (0.0-0.4); BILIRUBIN,TOTAL 0.8 mg/dL (0.2-1.3); BLOOD UREA NITROGEN 6 mg/dL (7-20); CALCIUM 9.3 mg/dL (8.4-10.2); CARBON DIOXIDE 28 mmol/L (22-30); CHLORIDE 104 mmol/L (98-107); GLUCOSE 93 mg/dL (75-110); LIPASE 43.6 U/L (23-300); POTASSIUM 4.3 mmol/L (3.6-5.0)
--- NOTE | 2017-09-01 14:38 | RADIOLOGY REPORT (SQ) ---
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 No oral contrast. Images reviewed with lung, soft tissue, and bone windows. Reconstructed coronal and sagittal MPR images reviewed. Delayed images for evaluation of the urinary system also acquired. All images stored on PACS. All CT scanners at this facility use dose modulation, iterative reconstruction, and/or weight based d osing when appropriate to reduce radiation dose to as low as reasonably achievable (ALARA). [facility]: Dose Right [facility]: CareDose [facility]: Dose Right [facility]: Teradose 4D [facility]: [employer] CONTRAST TYPE AND DOSE: contrast/concentration: Isovue 370.00 mg/ml; Total Contrast Delivered: 95.0 ml; Total Saline Delivered: 71.0 ml RENAL FUNCTION: Creatinine 0.6 RADIATION DOSE: CT Rad equipment meets quality standard of care and radiation dose reduction techniq ues were employed. CTDIvol: 13.7 - 18.2 mGy. DLP: 1888 mGy-cm.. LIMITATIONS: None. FINDINGS: LOWER CHEST: Small left pleural effusion is present. There is the tip of a central venous catheter in the superior vena cava. Right para esophageal 1.6 x 1 cm lymph node. 1.3 x 1 cm right pericardiophrenic lymph node, 1 x 0.6 cm right pericardiophrenic lymph node. LIVER: Normal size. No masses. No dilated ducts. SPLEEN: Normal size. No focal lesions. PANCREAS: No masses. No significant calcifications. No adjacent inflammation or peripancreatic fluid collections. Pancreatic duct not dilated. GALLBLADDER: No identified stones by CT criteria. No inflammatory changes to suggest cholecystitis. ADRENAL GLANDS: No significant masses or asymmetry. RIGHT KIDNEY AND URETER: No solid masses. No significant calcifications. No hydronephrosis or hyd roureter. LEFT KIDNEY AND URETER: No solid masses. No significant calcifications. No hydronephrosis or hydr oureter. AORTA AND VESSELS: No aneurysm. No dissection. Renal arteries, SMA, celiac without stenosis. RETROPERITONEUM: Diffuse retroperitoneal adenopathy, with multiple small para-aortic lymph nodes BOWEL AND PERITONEAL CAVITY: Peritoneal cavity is abnormal. A moderate amount of free left upper daniel drant fluid is seen between the diaphragm and left lobe liver/ spleen. Small amount of lesser sac fluid. Moderate amount of left lower quadrant loculated peritoneal fluid. On axial images 63 through 74, there is increased density of the omentum at and inferior to the level of the ventral hernia repair worrisome for omental tumor. Mid and distal small bowel loops appear t ethered to this rind of abnormal soft tissue, with mild dilatation of the duodenum and proximal jejun um. Findings are worrisome for partial small bowel obstruction. Colon is decompressed. APPENDIX: Normal. PELVIS: Post hysterectomy with recurrent mass at the vaginal cuff, 4 x 3 cm in size best shown on axi al image 83 and sagittal image 56. Multiple subcentimeter external and internal iliac lymph nodes ar e present. ABDOMINAL WALL: Intact umbilical hernia repair. BONES: No significant or acute findings. OTHER: Report discussed with Dr. Patel IMPRESSION: Findings worrisome for recurrent SERVICES PROGRAM MANAGER malignancy with left pleural effusion, ascites, ome ntal tumor, adenopathy, and a mass at the vaginal cuff. Mild dilatation of duodenum and proximal jejunum with tethered appearing decompressed distal small mateo wel loops. Patient may have a partial small bowel obstruction. Report discussed with the emergency room attending physician TECHNICAL DOCUMENTATION: JOB ID: [id number] Quality ID # [id number]: Final reports with documentation of one or more dose reduction techniques (e.g., Au tomated exposure control, adjustment of the mA and/or kV according to patient size, use of iterative reconstruction technique) 2010 [employer]- All Rights Reserved Reading location - IP/workstation name: [email or web address]
[2017-09-01 14:49] LABS: APPEARANCE,URINE CLOUDY; BILIRUBIN,URINE NEGATIVE (NEGATIVE); COLOR,URINE YELLOW; GLUCOSE, URINE NEGATIVE (NEGATIVE); KETONES,URINE NEGATIVE (NEGATIVE); LEUKOCYTE ESTERASE,URINE LARGE (NEGATIVE); NITRITE,URINE NEGATIVE (NEGATIVE); PROTEIN,URINE NEGATIVE (NEGATIVE); URINE SPECIFIC GRAVITY 1.011; UROBILINOGEN,URINE NEGATIVE mg/dL (<2.0)
[2017-09-01 17:47] VITALS: BP 130/86
== END 2017-09-01 17:48 | disposition home or self-care (01) ==
LOC: ER 11:13
DX: N89.9 Noninflammatory disorder of vagina, unspecified (principal); R10.9 Unspecified abdominal pain; R18.0 Malignant ascites; J90 Pleural effusion, not elsewhere classified; Z85.43 Personal history of malignant neoplasm of ovary; Z90.710 Acquired absence of both cervix and uterus; Z88.2 Allergy status to sulfonamides; Z88.0 Allergy status to penicillin
CPT/HCPCS: 99284; 96374; 36415; 83690; 85025; 80053; 81001; 74177; J2270

== ENCOUNTER 2017-09-19 12:02 | Emergency (ER) | payer BC ==
[2017-09-19] MEDS ORDERED: NORMAL SALINE 1000 ML 1,000 ML IV ONE ×3 (13:11→16:27)
[2017-09-19] MEDS ORDERED: ONDANSETRON 4 MG TAB.RAPDIS PO ONE (13:12)
--- NOTE | 2017-09-19 13:13 | ER Document Report ---
ED Medical Screen (RME) - General Chief Complaint: Vomiting Stated Complaint: VOMITING Time Seen by Provider: 09/19/17 13:10 TRAVEL OUTSIDE OF THE [place] IN LAST 30 DAYS: No - HPI Notes: 09/19/17 13:13 History of ovarian cancer receiving chemotherapy on Thursday complains of nausea vomiting has not had any anti-medics at home - Related Data Allergies/Adverse Reactions: Penicillins Allergy (Severe, Verified 09/19/17 12:03) stop breathing, hives Sulfa (Sulfonamide Antibiotics) Allergy (Severe, Verified 09/19/17 12:03) Hives Metal Allergy (Uncoded 09/19/17 12:03) Past Medical History - Past Medical History Cardiac Medical History: Reports: Hx Hypertension Denies: Hx Coronary Artery Disease, Hx Heart Attack Pulmonary Medical History: Denies: Hx Asthma, Hx Bronchitis, Hx COPD, Hx Pneumonia Neurological Medical History: Denies: Hx Cerebrovascular Accident, Hx Seizures Renal/ Medical History: Denies: Hx Peritoneal Dialysis Malignancy Medical History: Reports: Hx Ovarian Cancer Musculoskeltal Medical History: Denies Hx Arthritis Psychiatric Medical History: Denies: Hx Depression Past Surgical History: Reports: Hx Gynecologic Surgery - LEEP, Hx Herniorrhaphy , Hx Hysterectomy - Immunizations Immunizations up to date: Yes Hx Diphtheria, Pertussis, Tetanus Vaccination: No - Unsure Review of Systems - Review of Systems Gastrointestinal: Nausea, Vomiting -: Yes All other systems reviewed and negative Physical Exam - Vital signs Vitals: Temp Pulse Resp BP Pulse Ox 97.4 F 106 H 20 134/94 H 98 09/19/17 12:31 09/19/17 12:31 09/19/17 12:31 09/19/17 12:31 09/19/17 12:31 - Respiratory Respiratory status: No respiratory distress Chest status: Nontender Breath sounds: Normal Chest palpation: Normal Notes: Port-A-Cath right upper chest Course - Vital Signs Vital signs: Temp Pulse Resp BP Pulse Ox 97.4 F 106 H 20 134/94 H 98 09/19/17 12:31 09/19/17 12:31 09/19/17 12:31 09/19/17 12:31 09/19/17 12:31 Doctor's Discharge - Discharge Referrals: BENJA AGRAWAL NP-C [Primary Care Provider] - Follow up as needed
[2017-09-19] MEDS ORDERED: HYDROMORPHONE HCL INJ/PF 2 MG/ML AMPULE IV ONE (13:44)
[2017-09-19] MEDS ORDERED: ONDANSETRON 4 MG TAB.RAPDIS ONE (14:19)
[2017-09-19 14:59] LABS: ABSOLUTE LYMPHOCYTES (AUTO) 1.1 10^3/uL (0.5-4.7); ABSOLUTE MONOCYTES (AUTO) 0.2 10^3/uL (0.1-1.4); ABSOLUTE NEUT (AUTO) 3.3 10^3/uL (1.7-8.2); BASOPHILS % (AUTO) 0.6 % (0-2); EOSINOPHILS % (AUTO) 0.3 % (0-6); HEMATOCRIT 38.7 % (36.0-47.0); HEMOGLOBIN 13.2 g/dL (12.0-15.5); MEAN CORPUSCULAR HEMOGLOBIN 29.4 pg (27.0-33.4); MEAN CORPUSCULAR HGB CONC 34.2 g/dL (32.0-36.0); MEAN CORPUSCULAR VOLUME 86 fl (80-97); MONOCYTES % (AUTO) 3.5 % (3-13); PLATELET COUNT 342 10^3/uL (150-450); RED BLOOD COUNT 4.49 10^6/uL (3.72-5.28); RED CELL DISTRIBUTION WIDTH 13.2 % (11.5-14.0); SEGMENTED NEUTROPHILS % (AUTO) 71.6 % (42-78); TOTAL CELLS COUNTED % (AUTO) 100 %; WHITE BLOOD COUNT 4.6 10^3/uL (4.0-10.5)
--- NOTE | 2017-09-19 15:21 | RADIOLOGY REPORT (SQ) ---
EXAM DESCRIPTION: ACUTE ABDOMEN SERIES COMPLETED DATE/TIME: 09/19/2017 2:58 pm REASON FOR STUDY: vomiting, ovarian cancer COMPARISON: None. NUMBER OF VIEWS: Three views. TECHNIQUE: Frontal chest, supine abdomen and upright/decubitus abdomen radiographic images acquired. LIMITATIONS: None. FINDINGS: CHEST: The heart is normal. The pulmonary vasculature is normal. There is bibasilar infi ltrate and left pleural effusion. FREE AIR: None. No abnormal gas collections. BOWEL GAS PATTERN: Nonspecific bowel-gas pattern. CALCIFICATIONS: No suspicious calcifications. HARDWARE: Radiopaque densities overlying lower abdomen could represent changes from previous abdomina l wall hernia repair. SOFT TISSUES: No gross mass or suggestion of organomegaly. BONES: No acute fracture. No worrisome bone lesions. OTHER: Port-A-Cath overlying SVC. IMPRESSION: Bibasilar atelectasis and left pleural effusion. Nonspecific bowel-gas pattern. TECHNICAL DOCUMENTATION: JOB ID: [id number] 2010 [employer]- All Rights Reserved Reading location - IP/workstation name: [email or web address]
[2017-09-19 15:22] LABS: ALANINE AMINOTRANSFERASE 33 U/L (9-52); ALBUMIN 3.9 g/dL (3.5-5.0); ALKALINE PHOSPHATASE 96 U/L (38-126); ANION GAP 18 (5-19); ASPARTATE AMINO TRANSFERASE 32 U/L (14-36); BILIRUBIN,DIRECT 0.4 mg/dL (0.0-0.4); BILIRUBIN,TOTAL 0.7 mg/dL (0.2-1.3); BLOOD UREA NITROGEN 13 mg/dL (7-20); CALCIUM 9.3 mg/dL (8.4-10.2); CARBON DIOXIDE 25 mmol/L (22-30); CHLORIDE 98 mmol/L (98-107); GLUCOSE 106 mg/dL (75-110); POTASSIUM 3.8 mmol/L (3.6-5.0); SODIUM 140.6 mmol/L (137-145); TOTAL PROTEIN 7.4 g/dL (6.3-8.2)
[2017-09-19] MEDS ORDERED: ONDANSETRON HCL INJ/PF 4 MG/2 ML SDV IV ONE (16:27)
--- NOTE | 2017-09-19 16:27 | ER Document Report ---
ED General - General Chief Complaint: Vomiting Stated Complaint: VOMITING Time Seen by Provider: 09/19/17 13:10 Notes: 37-year-old female with stage III ovarian cancer presents emergency department complaining of vomiting since Thursday. Patient states that she started a new round of chemotherapy on Thursday and it is different drugs that she has previously used, states that she started vomiting has not been able to tolerate oral intake since Thursday. Denies any blood in her vomit, states she started having diarrhea today and denies any blood in her stool. Denies any fevers, denies any significantly increased abdominal pain compared to the chronic left- sided pelvic pain that she has from her ovarian cancer. States that she follows up with Dr. Nickerson in [place] at the [facility]. TRAVEL OUTSIDE OF THE [place] IN LAST 30 DAYS: No - Related Data Allergies/Adverse Reactions: Penicillins Allergy (Severe, Verified 09/19/17 12:03) stop breathing, hives Sulfa (Sulfonamide Antibiotics) Allergy (Severe, Verified 09/19/17 12:03) Hives Metal Allergy (Uncoded 09/19/17 12:03) Past Medical History - General Information source: Patient - Social History Smoking Status: Never Smoker Chew tobacco use (# tins/day): No Frequency of alcohol use: None Drug Abuse: Marijuana - States she self medicates her nausea with marijuana Family History: Malignancy - Mother from liver cancer. Patient has suicidal ideation: No Patient has homicidal ideation: No - Past Medical History Cardiac Medical History: Reports: Hx Hypertension Denies: Hx Coronary Artery Disease, Hx Heart Attack Pulmonary Medical History: Denies: Hx Asthma, Hx Bronchitis, Hx COPD, Hx Pneumonia Neurological Medical History: Denies: Hx Cerebrovascular Accident, Hx Seizures Renal/ Medical History: Denies: Hx Peritoneal Dialysis Malignancy Medical History: Reports: Hx Ovarian Cancer Musculoskeletal Medical History: Denies Hx Arthritis Psychiatric Medical History: Denies: Hx Depression Past Surgical History: Reports: Hx Gynecologic Surgery - LEEP, Hx Herniorrhaphy , Hx Hysterectomy - Immunizations Immunizations up to date: Yes Hx Diphtheria, Pertussis, Tetanus Vaccination: No - Unsure Review of Systems - Review of Systems Constitutional: See HPI, Malaise, Weakness EENT: No symptoms reported Gastrointestinal: See HPI -: Yes All other systems reviewed and negative Physical Exam - Vital signs Vitals: Temp Pulse Resp BP Pulse Ox 97.4 F 106 H 20 134/94 H 98 09/19/17 12:31 09/19/17 12:31 09/19/17 12:31 09/19/17 12:31 09/19/17 12:31 Interpretation: Tachycardic - Notes Notes: GENERAL: Alert, interacts well. Appears uncomfortable. HEAD: Normocephalic, atraumatic EYES: Pupils equal, round and reactive to light, extraocular movements intact. ENT: Oral mucosa dry, tongue midline. NECK: Full range of motion, supple, trachea midline. LUNGS: Clear to auscultation bilaterally, no wheezes, rales or rhonchi, no respiratory distress. HEART: Tachycardic, no murmurs, gallops, rubs. ABDOMEN: Pelvic mass palpated suprapubically, mildly tender to palpation, nondistended, bowel sounds present in all 4 quadrants. EXTREMITIES: Moves all 4 extremities spontaneously, no edema, radial and dorsalis pedis pulses 2/4 bilaterally. No cyanosis. NEUROLOGICAL: Alert and oriented x3, normal speech. PSYCH: Normal mood, normal affect. SKIN: Warm, Dry, normal turgor, scaling and flaking of the skin around the umbilicus. Course - Re-evaluation Re-evalutation: 09/19/17 16:27 CBC unremarkable, CMP unremarkable, lipase normal, acute abdominal series does not show any signs of obstruction or free air. Patient was given a liter of normal saline and Zofran, vomiting has stopped, she is now drinking apple juice without difficulty. Patient will be given a second liter of fluid. 09/19/17 16:27 So long as she is able to tolerate apple juice without difficulty she will be discharged home after her second liter fluid. Patient already has prescriptions for antiemetics at home however she was unable to afford her Zofran ODT so she will be given to dispense pack from here and a prescription for Phenergan suppositories as well. - Vital Signs Vital signs: Temp Pulse Resp BP Pulse Ox 97.4 F 106 H 19 106/73 97 09/19/17 12:31 09/19/17 12:31 09/19/17 15:04 09/19/17 14:44 09/19/17 14:44 - Laboratory Result Diagrams: 09/19/17 14:42 09/19/17 14:42 Laboratory results interpreted by me: 09/19/17 14:42 Creatinine 0.51 L - EKG Interpretation by Me Additional EKG results interpreted by me: 09/19/17 16:28 EKG shows sinus tachycardia at a rate of 105, normal axis, normal intervals, no ST segment elevations or depressions, there are T-wave inversions noted in lead III, the 2 through V3 and flattening in V4 through V6 per my interpretation. Discharge - Discharge Clinical Impression: Nausea vomiting and diarrhea Condition: Stable Disposition: HOME, SELF-CARE Additional Instructions: Drink plenty fluids, you may use the Phenergan suppositories if you cannot tolerate your antinausea medications by mouth. Please follow-up with your oncologist as an outpatient to further discuss your chemotherapy and vomiting. Prescriptions: Promethazine HCl [Phenergan 25 mg Supp.rect] 25 mg HI Q4HP PRN #[id number] supp.rect PRN Reason: Referrals: BENJA AGRAWAL NP-C [Primary Care Provider] - Follow up as needed
[2017-09-19] MEDS ORDERED: ONDANSETRON ODT 4 MG TAB (6 TAB/ER DISP) PO PRN (16:34)
[2017-09-19 17:48] VITALS: BP 118/73
--- NOTE | 2017-09-20 23:14 | EKG REPORT ---
SEVERITY:- BORDERLINE ECG - SINUS TACHYCARDIA BORDERLINE T ABNORMALITIES, ANTERIOR LEADS : Confirmed by: Kailey Swann 20-Sep-2017 23:14:03
== END 2017-09-19 17:48 | disposition home or self-care (01) ==
LOC: ER 12:02
DX: R11.2 Nausea with vomiting, unspecified (principal); R19.7 Diarrhea, unspecified; I10 Essential (primary) hypertension; Z90.710 Acquired absence of both cervix and uterus; Z88.0 Allergy status to penicillin; Z88.2 Allergy status to sulfonamides
CPT/HCPCS: 93005; 36591; 99284; 96361; 96374; 96375; 36415; 83690; 85025; 80053; 74022; 93010; S0119; J1170; J2405; J7030

== ENCOUNTER 2017-09-29 16:49 | Emergency (ER) | payer BC ==
[2017-09-29] MEDS ORDERED: ONDANSETRON 4 MG TAB.RAPDIS PO ONE (17:28)
[2017-09-29] MEDS ORDERED: HYDROMORPHONE HCL INJ/PF 2 MG/ML AMPULE IV ONE ×2 (17:28→20:18)
--- NOTE | 2017-09-29 17:29 | ER Document Report ---
ED Medical Screen (RME) - General Chief Complaint: Nausea/Vomiting Stated Complaint: VOMITING Time Seen by Provider: 09/29/17 17:22 Mode of Arrival: Wheelchair Information source: Patient Notes: 37-year-old female with metastatic ovarian cancer presenting with nausea, vomiting, flank pain, fever. Patient's last chemotherapy was 1 week ago. TRAVEL OUTSIDE OF THE [place] IN LAST 30 DAYS: No - Related Data Allergies/Adverse Reactions: Penicillins Allergy (Severe, Verified 09/29/17 17:11) stop breathing, hives Sulfa (Sulfonamide Antibiotics) Allergy (Severe, Verified 09/29/17 17:11) Hives diphenhydramine [From Benadryl] Adverse Reaction (Severe, Verified 09/29/17 17: 11) Anxiety Metal Allergy (Uncoded 09/29/17 17:11) Past Medical History - Social History Chew tobacco use (# tins/day): No Frequency of alcohol use: None Drug Abuse: Marijuana - Past Medical History Cardiac Medical History: Reports: Hx Hypertension Denies: Hx Coronary Artery Disease, Hx Heart Attack Pulmonary Medical History: Denies: Hx Asthma, Hx Bronchitis, Hx COPD, Hx Pneumonia Neurological Medical History: Denies: Hx Cerebrovascular Accident, Hx Seizures Renal/ Medical History: Denies: Hx Peritoneal Dialysis Malignancy Medical History: Reports: Hx Ovarian Cancer Musculoskeltal Medical History: Denies Hx Arthritis Psychiatric Medical History: Denies: Hx Depression Past Surgical History: Reports: Hx Gynecologic Surgery - LEEP, Hx Herniorrhaphy , Hx Hysterectomy - Immunizations Immunizations up to date: Yes Hx Diphtheria, Pertussis, Tetanus Vaccination: No - Unsure Physical Exam - Vital signs Vitals: Temp Pulse Resp BP Pulse Ox 99.8 F 125 H 18 130/90 H 97 09/29/17 16:55 09/29/17 16:55 09/29/17 16:55 09/29/17 16:55 09/29/17 16:55 Course - Vital Signs Vital signs: Temp Pulse Resp BP Pulse Ox 99.8 F 125 H 18 130/90 H 97 09/29/17 16:55 09/29/17 16:55 09/29/17 16:55 09/29/17 16:55 09/29/17 16:55 Doctor's Discharge - Discharge Referrals: NGHIA,BENJA, DIRECTOR OF SUSTAINABILITY PROGRAMS-C [Primary Care Provider] - Follow up as needed
[2017-09-29] MEDS ORDERED: NORMAL SALINE 1000 ML 1,000 ML IV ONE ×2 (17:31→23:58)
--- NOTE | 2017-09-29 17:56 | RADIOLOGY REPORT (SQ) ---
EXAM DESCRIPTION: CHEST SINGLE VIEW COMPLETED DATE/TIME: 09/29/2017 5:40 pm REASON FOR STUDY: fever, vomiting COMPARISON: Acute abdomen series dated 09/19/2017 EXAM PARAMETERS: NUMBER OF VIEWS: One view. TECHNIQUE: Single frontal radiographic view of the chest acquired. RADIATION DOSE: NA LIMITATIONS: None. FINDINGS: LUNGS AND PLEURA: Increased density is again identified in the left lung base which has th e appearance of a small left pleural effusion and I cannot exclude some associated atelectasis or inf iltrate in the left lung base. Minimal linear density is identified in the right lung base most cons istent with subsegmental atelectasis. Remaining lung hopkins are clear. MEDIASTINUM AND HILAR STRUCTURES: No masses. Contour normal. HEART AND VASCULAR STRUCTURES: The configuration of the heart and mediastinal structures is unchanged . BONES: No acute findings. HARDWARE: Port-A-Cath is unchanged in position OTHER: No other significant finding. IMPRESSION: Bibasilar densities left greater than right as noted above TECHNICAL DOCUMENTATION: JOB ID: [id number] [employer]- All Rights Reserved Reading location - IP/workstation name: [email or web address]
--- NOTE | 2017-09-29 17:59 | ER Document Report ---
ED General - General Chief Complaint: Nausea/Vomiting Stated Complaint: VOMITING Time Seen by Provider: 09/29/17 17:22 Mode of Arrival: Wheelchair Notes: 37-year-old female patient to the emergency department chief complaint of nausea and vomiting. Not passing gas. Patient has stage III ovarian cancer. Has undergone 2 rounds of chemotherapy. Last chemotherapy was approximately 1 week ago. Thinks that this may be she is just having a reaction to the chemotherapy but then felt febrile today. Nothing seems to be helping the vomiting. Complaining of pain in the left back as well. TRAVEL OUTSIDE OF THE [place] IN LAST 30 DAYS: No - HPI Onset: Just prior to arrival Onset/Duration: Gradual, Worse - Related Data Allergies/Adverse Reactions: Penicillins Allergy (Severe, Verified 09/29/17 17:11) stop breathing, hives Sulfa (Sulfonamide Antibiotics) Allergy (Severe, Verified 09/29/17 17:11) Hives diphenhydramine [From Benadryl] Adverse Reaction (Severe, Verified 09/29/17 17: 11) Anxiety Metal Allergy (Uncoded 09/29/17 17:11) Past Medical History - General Information source: Patient - Social History Smoking Status: Never Smoker Chew tobacco use (# tins/day): No Frequency of alcohol use: None Drug Abuse: Marijuana Lives with: Spouse/Significant other Family History: Malignancy - Mother from liver cancer. Patient has suicidal ideation: No Patient has homicidal ideation: No - Past Medical History Cardiac Medical History: Reports: Hx Hypertension Denies: Hx Coronary Artery Disease, Hx Heart Attack Pulmonary Medical History: Denies: Hx Asthma, Hx Bronchitis, Hx COPD, Hx Pneumonia Neurological Medical History: Denies: Hx Cerebrovascular Accident, Hx Seizures Renal/ Medical History: Denies: Hx Peritoneal Dialysis Malignancy Medical History: Reports: Hx Ovarian Cancer Musculoskeletal Medical History: Denies Hx Arthritis Psychiatric Medical History: Denies: Hx Depression Past Surgical History: Reports: Hx Gynecologic Surgery - LEEP, Hx Herniorrhaphy , Hx Hysterectomy - Immunizations Immunizations up to date: Yes Hx Diphtheria, Pertussis, Tetanus Vaccination: No - Unsure Review of Systems - Review of Systems Constitutional: Fever, Malaise, Weakness EENT: Throat pain. denies: Ear pain, Difficulty swallowing, Mouth pain Cardiovascular: Heart racing. denies: Chest pain, Palpitations, Dyspnea Respiratory: denies: Cough, Hurts to breathe, Short of breath, Wheezing Gastrointestinal: Abdominal pain, Nausea, Vomiting. denies: Diarrhea Genitourinary: Flank pain. denies: Burning, Dysuria, Discharge Musculoskeletal: Back pain. denies: Joint pain, Muscle pain Skin: denies: Dryness, Lesions, Lumps, Rash Hematologic/Lymphatic: Enlarged lymph nodes, Swollen glands. denies: Anemia, Easy bleeding, Easy bruising Neurological/Psychological: denies: Confusion, Weakness, Numbness Physical Exam - Vital signs Vitals: Temp Pulse Resp BP Pulse Ox 99.8 F 125 H 18 130/90 H 97 09/29/17 16:55 09/29/17 16:55 09/29/17 16:55 09/29/17 16:55 09/29/17 16:55 Interpretation: Tachycardic - General General appearance: Appears well, Alert - HEENT Head: Normocephalic, Atraumatic Eyes: Normal Pupils: PERRL Neck: Lymphadenopathy - There is large amount of right-sided lymphadenopathy present., Supple - Respiratory Respiratory status: No respiratory distress Chest status: Nontender Breath sounds: Normal Chest palpation: Normal - Cardiovascular Rhythm: Tachycardia Heart sounds: Normal auscultation Murmur: No - Abdominal Inspection: Normal Distension: No distension Bowel sounds: Hypoactive Tenderness: Tender - Diffuse tenderness. No guarding or rebound. Organomegaly: No organomegaly - Back Back: Normal, Nontender - Extremities General upper extremity: Normal inspection, Nontender, Normal color, Normal ROM , Normal temperature General lower extremity: Normal inspection, Nontender, Normal color, Normal ROM , Normal temperature, Normal weight bearing. No: Hussein's sign - Neurological Neuro grossly intact: Yes Cognition: Normal Orientation: AAOx4 [place] Coma Scale Eye Opening: Spontaneous [place] Coma Scale Verbal: Oriented [place] Coma Scale Motor: Obeys Commands [place] Coma Scale Total: 15 Speech: Normal Motor strength normal: LUE, RUE, LLE, RLE Sensory: Normal - Psychological Associated symptoms: Normal affect, Normal mood - Skin Skin Temperature: Warm Skin Moisture: Dry Skin Color: Normal Course - Re-evaluation Re-evalutation: 09/29/17 20:20 Patient on chemotherapy with questionable fever. Not feeling well. Tachycardia. At this time will give fluids, nausea control. Labs. X-ray and CT and reassess. 09/29/17 20:21 X-ray shows loops of small bowel which could be consistent with bowel obstruction versus ileus. Will proceed with CT. X-ray also shows worsening pleural effusions. Will add CT chest as well. 09/29/17 20:21 Laboratory 09/29/17 09/29/17 09/29/17 18:05 18:05 18:05 WBC 4.9 RBC 3.94 Hgb 11.7 L Hct 34.1 L MCV 86 MCH 29.8 MCHC 34.4 RDW 13.3 Plt Count 52 L Seg Neutrophils % 71.7 Lymphocytes % 19.2 Monocytes % 8.9 Eosinophils % 0.0 Basophils % 0.2 Absolute Neutrophils 3.5 Absolute Lymphocytes 0.9 Absolute Monocytes 0.4 Absolute Eosinophils 0.0 Absolute Basophils 0.0 Sodium 140.1 Potassium 3.6 Chloride 98 Carbon Dioxide 27 Anion Gap 15 BUN 12 Creatinine 0.52 Est GFR ( Amer) > 60 Est GFR (Non-Af Amer) > 60 Glucose 106 POC Glucose Lactic Acid 0.8 Calcium 9.3 Total Bilirubin 0.6 Direct Bilirubin 0.4 Neonat Total Bilirubin Not Reportable Neonat Direct Bilirubin Not Reportable Neonat Indirect Bili Not Reportable AST 64 H ALT 92 H Alkaline Phosphatase 119 Total Protein 7.3 Albumin 4.0 Urine Color Urine Appearance Urine pH Ur Specific [place] Urine Protein Urine Glucose (UA) Urine Ketones Urine Blood Urine Nitrite Urine Bilirubin Urine Urobilinogen Ur Leukocyte Esterase Urine WBC (Auto) Urine RBC (Auto) Urine Bacteria (Auto) Squamous Epi Cells Auto Urine Mucus (Auto) Urine Ascorbic Acid Group A Strep Rapid 09/29/17 09/29/17 09/29/17 18:25 18:52 18:55 WBC RBC Hgb Hct MCV MCH MCHC RDW Plt Count Seg Neutrophils % Lymphocytes % Monocytes % Eosinophils % Basophils % Absolute Neutrophils Absolute Lymphocytes Absolute Monocytes Absolute Eosinophils Absolute Basophils Sodium Potassium Chloride Carbon Dioxide Anion Gap BUN Creatinine Est GFR ( Amer) Est GFR (Non-Af Amer) Glucose POC Glucose 103 Lactic Acid Calcium Total Bilirubin Direct Bilirubin Neonat Total Bilirubin Neonat Direct Bilirubin Neonat Indirect Bili AST ALT Alkaline Phosphatase Total Protein Albumin Urine Color YELLOW Urine Appearance SLIGHTLY-CLOUDY Urine pH 8.0 Ur Specific [place] 1.026 Urine Protein 100 H Urine Glucose (UA) NEGATIVE Urine Ketones 80 H Urine Blood NEGATIVE Urine Nitrite NEGATIVE Urine Bilirubin SMALL H Urine Urobilinogen 4.0 H Ur Leukocyte Esterase NEGATIVE Urine WBC (Auto) 6 Urine RBC (Auto) 7 Urine Bacteria (Auto) TRACE Squamous Epi Cells Auto 6 Urine Mucus (Auto) MANY Urine Ascorbic Acid 40 H Group A Strep Rapid NEGATIVE 09/29/17 23:31 Chest X-Ray 09/29/17 17:29 IMPRESSION: Bibasilar densities left greater than right as noted above Abdomen X-Ray 09/29/17 19:15 IMPRESSION: Cannot exclude partial small bowel obstruction versus ileus. Abdomen/Pelvis CT 09/29/17 19:56 IMPRESSION: Once again findings are concerning for disease within the peritoneal cavity including omental implants. There are pockets of free fluid in the abdomen. Cannot exclude partial small bowel obstruction. Mild retroperitoneal adenopathy. Chest CT 09/29/17 19:56 IMPRESSION: Left pleural effusion. Left lower lobe consolidation versus atelectasis. Spoke with the oncologist on-call for patient's oncologist. Dr. Akins. She would like patient transferred to [facility] in [place]. Currently patient is stable. Still tachycardic but resting comfortably. Has a mild headache. Awaiting transport at this time. - Vital Signs Vital signs: Temp Pulse Resp BP Pulse Ox 99.8 F 125 H 18 124/79 95 09/29/17 16:55 09/29/17 16:55 09/29/17 16:55 09/29/17 22:16 09/29/17 22:16 - Laboratory Result Diagrams: 09/29/17 18:05 09/29/17 18:05 Laboratory results interpreted by me: 09/29/17 09/29/17 09/29/17 18:05 18:05 18:25 Hgb 11.7 L Hct 34.1 L Plt Count 52 L AST 64 H ALT 92 H Urine Protein 100 H Urine Ketones 80 H Urine Bilirubin SMALL H Urine Urobilinogen 4.0 H Urine Ascorbic Acid 40 H Critical Care Note - Critical Care Note Total time excluding time spent on procedures (mins): 60 Comments: Tachycardia, oncological, consultation with specialists Discharge - Discharge Clinical Impression: Partial small bowel obstruction Metastatic malignant neoplasm to ovary Qualifiers: Laterality: unspecified laterality Qualified Code(s): C79.60 - Secondary malignant neoplasm of unspecified ovary Condition: Fair Disposition: [facility] Referrals: NGHIA,BENJA, BATTERY CONTAINER INSPECTOR-C [Primary Care Provider] - Follow up as needed
[2017-09-29 18:20] LABS: ABSOLUTE LYMPHOCYTES (AUTO) 0.9 10^3/uL (0.5-4.7); ABSOLUTE MONOCYTES (AUTO) 0.4 10^3/uL (0.1-1.4); ABSOLUTE NEUT (AUTO) 3.5 10^3/uL (1.7-8.2); BASOPHILS % (AUTO) 0.2 % (0-2); HEMATOCRIT 34.1 % (36.0-47.0); HEMOGLOBIN 11.7 g/dL (12.0-15.5); LYMPHOCYTES % (AUTO) 19.2 % (13-45); MEAN CORPUSCULAR HEMOGLOBIN 29.8 pg (27.0-33.4); MEAN CORPUSCULAR HGB CONC 34.4 g/dL (32.0-36.0); MEAN CORPUSCULAR VOLUME 86 fl (80-97); MONOCYTES % (AUTO) 8.9 % (3-13); RED BLOOD COUNT 3.94 10^6/uL (3.72-5.28); RED CELL DISTRIBUTION WIDTH 13.3 % (11.5-14.0); SEGMENTED NEUTROPHILS % (AUTO) 71.7 % (42-78); TOTAL CELLS COUNTED % (AUTO) 100 %; WHITE BLOOD COUNT 4.9 10^3/uL (4.0-10.5)
[2017-09-29 18:41] LABS: PLATELET COUNT 52 10^3/uL (150-450)
[2017-09-29 18:51] LABS: APPEARANCE,URINE SLIGHTLY-CLOUDY; BILIRUBIN,URINE SMALL (NEGATIVE); COLOR,URINE YELLOW; GLUCOSE, URINE NEGATIVE (NEGATIVE); KETONES,URINE 80 mg/dL (NEGATIVE); LEUKOCYTE ESTERASE,URINE NEGATIVE (NEGATIVE); NITRITE,URINE NEGATIVE (NEGATIVE); PROTEIN,URINE 100 mg/dL (NEGATIVE); URINE SPECIFIC GRAVITY 1.026
[2017-09-29 19:11] LABS: ALANINE AMINOTRANSFERASE 92 U/L (9-52); ALKALINE PHOSPHATASE 119 U/L (38-126); ANION GAP 15 (5-19); ASPARTATE AMINO TRANSFERASE 64 U/L (14-36); BILIRUBIN,DIRECT 0.4 mg/dL (0.0-0.4); BILIRUBIN,TOTAL 0.6 mg/dL (0.2-1.3); BLOOD UREA NITROGEN 12 mg/dL (7-20); CALCIUM 9.3 mg/dL (8.4-10.2); CARBON DIOXIDE 27 mmol/L (22-30); CHLORIDE 98 mmol/L (98-107); GLUCOSE 106 mg/dL (75-110); POTASSIUM 3.6 mmol/L (3.6-5.0); SODIUM 140.1 mmol/L (137-145); TOTAL PROTEIN 7.3 g/dL (6.3-8.2)
[2017-09-29] MEDS ORDERED: PROCHLORPERAZINE EDISYLATE INJ 10 MG/2 ML VIAL IV ONE (19:16)
--- NOTE | 2017-09-29 19:52 | RADIOLOGY REPORT (SQ) ---
EXAM DESCRIPTION: ABDOMEN 2 VIEWS COMPLETED DATE/TIME: 09/29/2017 7:42 pm REASON FOR STUDY: abd pain COMPARISON: None. NUMBER OF VIEWS: Two views. TECHNIQUE: Supine and erect/ radiographic images of the abdomen acquired. LIMITATIONS: None. FINDINGS: FREE AIR: None. No abnormal gas collections. LUNG BASES: Clear. BOWEL GAS PATTERN: There are some mildly prominent small bowel loops in the left mid to lower abdomen . CALCIFICATIONS: No suspicious calcifications. SOFT TISSUES: No gross mass or suggestion of organomegaly. HARDWARE: Fasteners for a ventral hernia mesh repair. BONES: No acute fracture. No worrisome bone lesions. OTHER: No other significant finding. IMPRESSION: Cannot exclude partial small bowel obstruction versus ileus. TECHNICAL DOCUMENTATION: JOB ID: [id number] [employer]- All Rights Reserved Reading location - IP/workstation name: [email or web address]
--- NOTE | 2017-09-29 21:38 | RADIOLOGY REPORT (SQ) ---
EXAM DESCRIPTION: CT CHEST WITH COMPLETED DATE/TIME: 09/29/2017 9:03 pm REASON FOR STUDY: fever, malignancy COMPARISON: None. TECHNIQUE: CT scan of the chest performed using helical scanning technique with dynamic intravenous contrast injection. Images reviewed with lung, soft tissue and bone windows. Reconstructed coronal and sagittal MPR images reviewed. All images stored on PACS. All CT scanners at this facility use dose modulation, iterative reconstruction, and/or weight based d osing when appropriate to reduce radiation dose to as low as reasonably achievable (ALARA). [facility]: Dose Right [facility]: CareDose [facility]: Dose Right [facility]: Teradose 4D [facility]: Tangible Cryptography CONTRAST TYPE AND DOSE: contrast/concentration: Isovue 370.00 mg/ml; Total Contrast Delivered: 99.0 ml; Total Saline Delivered: 55.0 ml RENAL FUNCTION: BUN 12 creatinine 0.52 RADIATION DOSE: . LIMITATIONS: None. FINDINGS: LUNGS AND PLEURA: Small left pleural effusion. Airspace disease in the left lower lobe. HILAR AND MEDIASTINAL STRUCTURES: No identified masses or abnormal nodes. HEART AND VASCULAR STRUCTURES: No aneurysm or dissection. No central pulmonary emboli. No pericardi al effusion. HARDWARE: Injection port on the right. UPPER ABDOMEN: See separate report of the CT of the abdomen. THYROID AND OTHER SOFT TISSUES: No masses. No adenopathy. BONES: No significant abnormality. OTHER: None. IMPRESSION: Left pleural effusion. Left lower lobe consolidation versus atelectasis. TECHNICAL DOCUMENTATION: JOB ID: [id number] Quality ID # [id number]: Final reports with documentation of one or more dose reduction techniques (e.g., Au tomated exposure control, adjustment of the mA and/or kV according to patient size, use of iterative reconstruction technique) 2010 [employer]- All Rights Reserved Reading location - IP/workstation name: [email or web address]
--- NOTE | 2017-09-29 21:45 | RADIOLOGY REPORT (SQ) ---
EXAM DESCRIPTION: CT ABD/PELVIS WITH IV ONLY COMPLETED DATE/TIME: 09/29/2017 9:03 pm REASON FOR STUDY: fever, malignancy, abd pain COMPARISON: 09/01/2017 TECHNIQUE: CT scan of the abdomen and pelvis performed using helical scanning technique with dynamic intravenous contrast injection. No oral contrast. Images reviewed with lung, soft tissue, and bone windows. Reconstructed coronal and sagittal MPR images reviewed. Delayed images for evaluation of the urinary system also acquired. All images stored on PACS. All CT scanners at this facility use dose modulation, iterative reconstruction, and/or weight based d osing when appropriate to reduce radiation dose to as low as reasonably achievable (ALARA). [facility]: Dose Right [facility]: CareDose [facility]: Dose Right [facility]: Teradose 4D [facility]: [facility] CONTRAST TYPE AND DOSE: 99 mL Isovue 370- low osmolar. RENAL FUNCTION: BUN 12 creatinine 0.52 RADIATION DOSE: CT Rad equipment meets quality standard of care and radiation dose reduction techniq ues were employed. CTDIvol: 11.3 - 17.2 mGy. DLP: 1722 mGy-cm.. LIMITATIONS: None. FINDINGS: LOWER CHEST: See separate report of the CT of the chest. LIVER: Normal size. No masses. No dilated ducts. SPLEEN: Normal size. No focal lesions. PANCREAS: No masses. No significant calcifications. No adjacent inflammation or peripancreatic fluid collections. Pancreatic duct not dilated. GALLBLADDER: No identified stones by CT criteria. No inflammatory changes to suggest cholecystitis. ADRENAL GLANDS: No significant masses or asymmetry. RIGHT KIDNEY AND URETER: No solid masses. No significant calcifications. No hydronephrosis or hyd roureter. LEFT KIDNEY AND URETER: No solid masses. No significant calcifications. No hydronephrosis or hydr oureter. AORTA AND VESSELS: No aneurysm. No dissection. Renal arteries, SMA, celiac without stenosis. RETROPERITONEUM: Multiple small periaortic lymph nodes are present. BOWEL AND PERITONEAL CAVITY: There is some free fluid in the abdomen. There is increased opacificati on in the omentum concerning for tumor. There are some mildly dilated loops of small bowel. APPENDIX: Not identified. PELVIS: No mass. No free fluid. Normal bladder. ABDOMINAL WALL: Prior ventral hernia repair. BONES: No significant or acute findings. OTHER: No other significant finding. IMPRESSION: Once again findings are concerning for disease within the peritoneal cavity including om ental implants. There are pockets of free fluid in the abdomen. Cannot exclude partial small bowel obstruction. Mild retroperitoneal adenopathy. TECHNICAL DOCUMENTATION: JOB ID: [id number] Quality ID # [id number]: Final reports with documentation of one or more dose reduction techniques (e.g., Au tomated exposure control, adjustment of the mA and/or kV according to patient size, use of iterative reconstruction technique) 2010 [employer]- All Rights Reserved Reading location - IP/workstation name: [email or web address]
[2017-09-29] MEDS ORDERED: KETOROLAC TROMETHAMINE INJ/PF 30 MG/1 ML SDV IV ONE (23:34)
[2017-09-29] MEDS ORDERED: ONDANSETRON HCL INJ/PF 4 MG/2 ML SDV IV ONE (23:57)
--- NOTE | 2017-09-30 02:07 | ER Document Report ---
Doctor's Note Notes: 09/30/17 02:06 Patient was reevaluated upon transfer. She is alert, oriented and comfortable. Stable for transfer.
[2017-09-30 02:08] VITALS: BP 124/72
== END 2017-09-30 02:08 | disposition short-term general hospital (02) ==
LOC: ER 16:49
DX: K56.600 Partial intestinal obstruction, unspecified as to cause (principal); C79.60 Secondary malignant neoplasm of unspecified ovary; M54.5 Low back pain; R11.2 Nausea with vomiting, unspecified; R53.1 Weakness; R10.9 Unspecified abdominal pain; R50.9 Fever, unspecified; I10 Essential (primary) hypertension; Z88.0 Allergy status to penicillin; Z88.2 Allergy status to sulfonamides; Z85.43 Personal history of malignant neoplasm of ovary
CPT/HCPCS: 96376; 99284; 96361; 96374; 96375; 36415; 87040; 87070; 87086; 87880; 82962; 85025; 87077; 87088; 80053; 81001; 87186; 83605; 74019; 71045; 71260; 74177; S0119; J1885; J1170; J0780; J2405; J7030 ×2

== ENCOUNTER 2019-04-13 09:22 | Emergency (ER) | payer BC, MEDICAID ==
[2019-04-13] MEDS ORDERED: METOCLOPRAMIDE HCL INJ/PF 10 MG/2 ML SDV IV ONE (09:59)
[2019-04-13] MEDS ORDERED: NORMAL SALINE 1000 ML 1,000 ML IV ONE (09:59)
--- NOTE | 2019-04-13 10:01 | ER Document Report ---
ED Medical Screen (RME) - General Chief Complaint: Nausea/Vomiting Stated Complaint: VOMITING/NAUSEA/WEAKNESS Time Seen by Provider: 04/13/19 09:55 Primary Care Provider: BENJA AGRAWAL NP-C [NURSE PRACTITIONER] - Follow up as needed Mode of Arrival: Wheelchair Information source: Patient Notes: 38-year-old female with ovarian cancer currently under chemo treatment presents with nausea and vomiting for the past 4 days. Believes she is now vomiting up blood. Reports she cannot sleep. Reports fever. Denies body aches and diarrhea. Reports she has an aide for 4 days. Patient is actively vomiting. I have greeted and performed a rapid initial assessment of this patient. A comprehensive ED assessment and evaluation of the patient, analysis of test res ults and completion of the medical decision making process will be conducted by additional ED providers. TRAVEL OUTSIDE OF THE [place] IN LAST 30 DAYS: No - Related Data Allergies/Adverse Reactions: Penicillins Allergy (Severe, Verified 04/13/19 09:49) stop breathing, hives Sulfa (Sulfonamide Antibiotics) Allergy (Severe, Verified 04/13/19 09:49) Hives diphenhydramine [From Benadryl] Adverse Reaction (Severe, Verified 04/13/19 09 :49) Anxiety Home Medications: LORAZEPAM, IMPARZA FOR CHEMO Past Medical History - Social History Frequency of alcohol use: None Drug Abuse: Marijuana - Past Medical History Cardiac Medical History: Reports: Hx Hypertension Denies: Hx Coronary Artery Disease, Hx Heart Attack Pulmonary Medical History: Denies: Hx Asthma, Hx Bronchitis, Hx COPD, Hx Pneumonia Neurological Medical History: Denies: Hx Cerebrovascular Accident, Hx Seizures Renal/ Medical History: Denies: Hx Peritoneal Dialysis Malignancy Medical History: Reports: Hx Ovarian Cancer Musculoskeltal Medical History: Denies Hx Arthritis Psychiatric Medical History: Denies: Hx Depression Past Surgical History: Reports: Hx Gynecologic Surgery - LEEP, Hx Herniorrhaphy, Hx Hysterectomy - Immunizations Immunizations up to date: Yes Hx Diphtheria, Pertussis, Tetanus Vaccination: No - Unsure Physical Exam - Vital signs Vitals: Temp Pulse Resp BP Pulse Ox 97.7 F 123 H 18 117/86 H 99 04/13/19 09:40 04/13/19 09:40 04/13/19 09:40 04/13/19 09:40 04/13/19 09:40 Course - Vital Signs Vital signs: Temp Pulse Resp BP Pulse Ox 97.7 F 123 H 19 109/78 84 L 04/13/19 09:40 04/13/19 09:40 04/13/19 11:10 04/13/19 11:10 04/13/19 11:10 - Laboratory Result Diagrams: 04/13/19 11:53 04/13/19 11:53 Laboratory results interpreted by me: 04/13/19 11:53 WBC 3.6 L RBC 3.69 L Hgb 10.8 L Hct 32.1 L RDW 17.3 H [place] % (Auto) 13.2 H Doctor's Discharge - Discharge Referrals: BENJA AGRAWAL, LUSTER APPLICATOR-C [NURSE PRACTITIONER] - Follow up as needed
[2019-04-13] MEDS ORDERED: PROMETHAZINE HCL INJ 25 MG/1 ML VIAL IV ONE (10:47)
[2019-04-13] MEDS ORDERED: HYDROMORPHONE HCL INJ/PF 2 MG/ML AMPULE IV ONE (10:48)
[2019-04-13] MEDS ORDERED: LORAZEPAM INJ 2 MG/1 ML VIAL IV ONE (10:48)
[2019-04-13] MEDS ORDERED: PANTOPRAZOLE SODIUM 40 MG VIAL IV ONE (10:50)
--- NOTE | 2019-04-13 10:53 | ER Document Report ---
ED General - General Chief Complaint: Nausea/Vomiting Stated Complaint: VOMITING/NAUSEA/WEAKNESS Time Seen by Provider: 04/13/19 09:55 Primary Care Provider: BENJA AGRAWAL NP-C [NURSE PRACTITIONER] - Follow up as needed Mode of Arrival: Wheelchair TRAVEL OUTSIDE OF THE [place] IN LAST 30 DAYS: No - HPI Notes: Patient is a 38-year-old female with stage IV ovarian cancer, currently undergoing chemotherapy, who presents to the emergency department for evaluation of increased pain, vomiting. She is been vomiting several times, they started noticing that it was dark last night. They were concerned it was blood. She does have some abdominal pain, also admits to feeling anxious. She states she has not had a bowel movement in 4 days, she has been passing some gas. According to brother, last CT scan did show some metastasis to the duodenum with some narrowing. He is concerned about the possibility of obstruction. She is had no fevers. No cough. No chest pain. No other acute complaints or concerns. According to the patient she has not been keeping her pain medication down. - Related Data Allergies/Adverse Reactions: Penicillins Allergy (Severe, Verified 04/13/19 09:49) stop breathing, hives Sulfa (Sulfonamide Antibiotics) Allergy (Severe, Verified 04/13/19 09:49) Hives diphenhydramine [From Benadryl] Adverse Reaction (Severe, Verified 04/13/19 09:49) Anxiety Home Medications: LORAZEPAM, IMPARZA FOR CHEMO, oxycodone Past Medical History - General Information source: Patient - Social History Smoking Status: Never Smoker Frequency of alcohol use: None Drug Abuse: Marijuana Family History: Malignancy - Mother from liver cancer. Patient has suicidal ideation: No Patient has homicidal ideation: No - Past Medical History Cardiac Medical History: Reports: Hx Hypertension Denies: Hx Coronary Artery Disease, Hx Heart Attack Pulmonary Medical History: Denies: Hx Asthma, Hx Bronchitis, Hx COPD, Hx Pneumonia Neurological Medical History: Denies: Hx Cerebrovascular Accident, Hx Seizures Renal/ Medical History: Denies: Hx Peritoneal Dialysis Malignancy Medical History: Reports: Hx Ovarian Cancer Musculoskeletal Medical History: Denies Hx Arthritis Psychiatric Medical History: Denies: Hx Depression Past Surgical History: Reports: Hx Gynecologic Surgery - LEEP, Hx Herniorrhaphy, Hx Hysterectomy - Immunizations Immunizations up to date: Yes Hx Diphtheria, Pertussis, Tetanus Vaccination: No - Unsure Review of Systems - Review of Systems Constitutional: Weakness Gastrointestinal: See HPI -: Yes All other systems reviewed and negative Physical Exam - Vital signs Vitals: Temp Pulse Resp BP Pulse Ox 97.7 F 123 H 18 117/86 H 99 04/13/19 09:40 04/13/19 09:40 04/13/19 09:40 04/13/19 09:40 04/13/19 09:40 - Notes Notes: Is a 38-year-old female who appears her stated age in a moderate amount of distress. She is actively vomiting. Vital signs reviewed, please refer to chart. Head is normocephalic, atraumatic. Pupils equal round, reactive to light. Neck is supple without meningismus. Heart is regular rate and rhythm. Lungs are clear to auscultation bilaterally. Abdomen is soft, with moderate diffuse tenderness, no rebound or guarding, normoactive bowel sounds throughout. Extremities without cyanosis, clubbing. Posterior calves are nontender. Peripheral pulses are equal. Skin is warm and dry. Patient is awake, alert, neurological exam is nonfocal. Course - Re-evaluation Re-evalutation: 04/13/19 10:52 Patient presents to the emergency department for evaluation. Is a 38-year-old female with known ovarian cancer. Her heart rate is elevated. She had labs ordered, IV fluids. I did cancel the Reglan because of a concern of possible obstruction. She is medicated with Dilaudid, Phenergan, Ativan. CT scan was ordered to evaluate for possible obstruction. Given her BMI I do not think that contrast is necessary at this time. She would not be able to tolerate anything p.o., I am concerned about the possibility of renal function secondary to her dehydration. IV fluids administered, we will continue to monitor. 04/13/19 10:54 Patient's emesis was heme tested by this physician and found to be positive. Protonix ordered. 04/13/19 12:58 Patient is feeling improved. She states her nausea has entirely resolved. She is still mildly tachycardic. Further IV fluids ordered. I was notified about critical potassium level. Magnesium level was ordered. CT scan showed metastatic disease progression but no obstruction. We will continue to monitor. 04/13/19 13:32 Magnesium level normal. Patient ordered oral potassium. I will send her home with Phenergan suppositories. She feels comfortable going home. In regards to feeding hematemesis, I do suspect this is only because she had so many episodes of vomiting. She is not vomiting any further. She has had no melena. I did explain, however, to the patient that she should be on a PPI and follow-up with gastroenterology. She voiced understanding to that as well. She is to follow- up closely with oncology and primary care, is to return to the emergency department with worsening or new concerning symptoms of any sort. - Vital Signs Vital signs: Temp Pulse Resp BP Pulse Ox 97.7 F 123 H 17 116/89 H 100 04/13/19 09:40 04/13/19 09:40 04/13/19 13:02 04/13/19 13:02 04/13/19 13:02 - Laboratory Result Diagrams: 04/13/19 11:53 04/13/19 11:53 Laboratory results interpreted by me: 04/13/19 04/13/19 11:53 11:53 WBC 3.6 L RBC 3.69 L Hgb 10.8 L Hct 32.1 L RDW 17.3 H [place] % (Auto) 13.2 H Potassium 2.9 L* Chloride 91 L Carbon Dioxide 39 H BUN 23 H Glucose 115 H - Diagnostic Test Radiology reviewed: Reports reviewed Radiology results interpreted by me: 04/13/19 13:36 04/13/19 11:53 04/13/19 11:53 MCV 87 fl (80-97) 04/13/19 11:53 MCH 29.3 pg (27.0-33.4) 04/13/19 11:53 MCHC 33.7 g/dL (32.0-36.0) 04/13/19 11:53 RDW 17.3 % (11.5-14.0) H 04/13/19 11:53 Seg Neutrophils % 71.8 % (42-78) 04/13/19 11:53 Chloride 91 mmol/L (98-107) L 04/13/19 11:53 Carbon Dioxide 39 mmol/L (22-30) H 04/13/19 11:53 Anion Gap 9 (5-19) 04/13/19 11:53 Est GFR ( Amer) > 60 (>60) 04/13/19 11:53 Glucose 115 mg/dL (75-110) H 04/13/19 11:53 Calcium 8.4 mg/dL (8.4-10.2) 04/13/19 11:53 Magnesium 2.1 mg/dL (1.6-2.3) 04/13/19 11:53 Total Bilirubin 0.4 mg/dL (0.2-1.3) 04/13/19 11:53 AST 33 U/L (14-36) 04/13/19 11:53 Alkaline Phosphatase 67 U/L (38-126) 04/13/19 11:53 Total Protein 6.9 g/dL (6.3-8.2) 04/13/19 11:53 Albumin 3.9 g/dL (3.5-5.0) 04/13/19 11:53 Abdomen/Pelvis CT 04/13/19 10:53 IMPRESSION: 1. Worsening metastatic disease with enlarged cardiophrenic, para- aortic, retroperitoneal and mesenteric adenopathy as above. 2. No evidence of intestinal obstruction or other acute process. Discharge - Discharge Clinical Impression: Hematemesis, Nausea and vomiting, Hypokalemia Condition: Stable Disposition: HOME, SELF-CARE Instructions: Acid-Suppressing Medication ([facility]), Upper Gastrointestinal Bleeding ([facility]), Vomiting ([facility]) Additional Instructions: Your potassium level is low. Please try to ingest high potassium foods, such as bananas, apricots. Use Phenergan as needed for severe nausea. Please note that this will cause drowsiness. Start the Protonix as prescribed. There was some blood in your vomit. If this persist you should follow-up with gastroenterology. Please follow-up with primary care and oncology this week. Return to the emergency department if you develop worsening or new concerning symptoms of any sort. Referrals: BENJA AGRAWAL NP-C [NURSE PRACTITIONER] - Follow up as needed
--- NOTE | 2019-04-13 11:57 | RADIOLOGY REPORT (SQ) ---
EXAM DESCRIPTION: CT ABD/PELVIS NO ORAL OR IV COMPLETED DATE/TIME: 04/13/2019 11:05 am REASON FOR STUDY: Ovarian cancer, vomiting, rule out obstruction COMPARISON: 09/29/2017 TECHNIQUE: CT scan of the abdomen and pelvis performed without intravenous or oral contrast. Images reviewed with lung, soft tissue, and bone windows. Reconstructed coronal and sagittal MPR images revi ewed. All images stored on PACS. All CT scanners at this facility use dose modulation, iterative reconstruction, and/or weight based d osing when appropriate to reduce radiation dose to as low as reasonably achievable (ALARA). [facility]: Dose Right [facility]: CareDose [facility]: Dose Right [facility]: Teradose 4D [facility]: [employer] RADIATION DOSE: CT Rad equipment meets quality standard of care and radiation dose reduction techniq ues were employed. CTDIvol: 7.5 mGy. DLP: 421 mGy-cm.mGy. LIMITATIONS: None. FINDINGS: LOWER CHEST: There is a enlarged lymph node within the cardiophrenic recess measuring 12 m m in short axis, previously 8 mm (series 3, image 9). Additional large para-aortic lymph node at the level of the diaphragmatic hiatus measuring 17 mm in short axis, previously 8 mm. Trace pericardial effusion. NON-CONTRASTED LIVER, SPLEEN, ADRENALS: Evaluation limited by lack of IV contrast. Ill-defined area of hypoattenuation within the spleen, incompletely characterize, measuring approximately 21 mm (serie s 3, image 18). No other identified significant masses. PANCREAS: Limited evaluation. No definite peripancreatic inflammatory change. No ductal dilation. GALLBLADDER: Not well identified. RIGHT KIDNEY AND URETER: No suspicious masses. Assessment limited by lack of IV contrast. No signif icant calcifications. No hydronephrosis or hydroureter. LEFT KIDNEY AND URETER: No suspicious masses. Assessment limited by lack of IV contrast. No signifi cant calcifications. No hydronephrosis or hydroureter. AORTA AND RETROPERITONEUM: There are innumerable pathologically enlarged retroperitoneal all lymph no max, largest left para-aortic node measures approximately 25 mm in short axis, previously 10 mm (seri es 3, image 36). BOWEL AND PERITONEAL CAVITY: No evidence of intestinal obstruction. Innumerable mesenteric and plans and enlarged lymph nodes throughout the central abdomen, increased from prior. Trace ascites. No f ree intraperitoneal gas. APPENDIX: Normal. PELVIS, BLADDER, AND ABDOMINAL WALL:Unremarkable urinary bladder. Shot[place] enlarged pelvic lymph nodes and mesenteric nodules, increased from prior. Prior midline hernia repair. BONES: No acute bony abnormality. No discrete lytic or blastic osseous lesions. OTHER: No other significant finding. IMPRESSION: 1. Worsening metastatic disease with enlarged cardiophrenic, para- aortic, retroperiton eal and mesenteric adenopathy as above. 2. No evidence of intestinal obstruction or other acute process. COMMENT: Quality ID # [id number]: Final reports with documentation of one or more dose reduction techniques (e.g., Automated exposure control, adjustment of the mA and/or kV according to patient size, use of iterative reconstruction technique) TECHNICAL DOCUMENTATION: JOB ID: [id number] 2010 [employer]- All Rights Reserved Reading location - IP/workstation name: [email or web address]
[2019-04-13 12:19] LABS: ABSOLUTE LYMPHOCYTES (AUTO) 0.5 10^3/uL (0.5-4.7); ABSOLUTE MONOCYTES (AUTO) 0.5 10^3/uL (0.1-1.4); ABSOLUTE NEUT (AUTO) 2.6 10^3/uL (1.7-8.2); BASOPHILS % (AUTO) 0.4 % (0-2); HEMATOCRIT 32.1 % (36.0-47.0); HEMOGLOBIN 10.8 g/dL (12.0-15.5); LYMPHOCYTES % (AUTO) 14.6 % (13-45); MEAN CORPUSCULAR HEMOGLOBIN 29.3 pg (27.0-33.4); MEAN CORPUSCULAR HGB CONC 33.7 g/dL (32.0-36.0); MEAN CORPUSCULAR VOLUME 87 fl (80-97); MONOCYTES % (AUTO) 13.2 % (3-13); PLATELET COUNT 241 10^3/uL (150-450); RED BLOOD COUNT 3.69 10^6/uL (3.72-5.28); RED CELL DISTRIBUTION WIDTH 17.3 % (11.5-14.0); SEGMENTED NEUTROPHILS % (AUTO) 71.8 % (42-78); TOTAL CELLS COUNTED % (AUTO) 100 %; WHITE BLOOD COUNT 3.6 10^3/uL (4.0-10.5)
[2019-04-13 12:42] LABS: ALBUMIN 3.9 g/dL (3.5-5.0); ALKALINE PHOSPHATASE 67 U/L (38-126); ANION GAP 9 (5-19); ASPARTATE AMINO TRANSFERASE 33 U/L (14-36); BILIRUBIN,DIRECT 0.1 mg/dL (0.0-0.4); BILIRUBIN,TOTAL 0.4 mg/dL (0.2-1.3); BLOOD UREA NITROGEN 23 mg/dL (7-20); CALCIUM 8.4 mg/dL (8.4-10.2); CARBON DIOXIDE 39 mmol/L (22-30); CHLORIDE 91 mmol/L (98-107); GLUCOSE 115 mg/dL (75-110); TOTAL PROTEIN 6.9 g/dL (6.3-8.2)
[2019-04-13 12:46] LABS: POTASSIUM 2.9 mmol/L (3.6-5.0)
[2019-04-13] MEDS ORDERED: NORMAL SALINE 1000 ML 1,000 ML IV PRN (12:58)
[2019-04-13] MEDS ORDERED: POTASSIUM CHLORIDE 10 MEQ TABLET.ER PO ONE (13:21)
[2019-04-13] MEDS ORDERED: POTASSIUM CHLORIDE 20 MEQ PACKET PO ONE (13:31)
[2019-04-13] MEDS ORDERED: LIDOCAINE 2% VISCOUS SOLN 15 ML UDCUP PO ONE (13:45)
[2019-04-13] MEDS ORDERED: PROMETHAZINE HCL 25 MG SUPP (4 SUPP/ER DISP) PR ONE (14:16)
[2019-04-13 15:15] VITALS: BP 122/94
== END 2019-04-13 15:12 | disposition home or self-care (01) ==
LOC: ER 09:22
DX: K92.0 Hematemesis (principal); E87.6 Hypokalemia; R53.1 Weakness; C56.9 Malignant neoplasm of unspecified ovary; Z79.899 Other long term (current) drug therapy
CPT/HCPCS: 36415; 83735; 85025; 80053; 74176; J3490 ×2; J1170; J2060; C9113; J2550; J7030; J1642

== ENCOUNTER 2019-04-20 23:28 | Emergency (ER) | payer BC, MEDICAID ==
[2019-04-21] MEDS ORDERED: NORMAL SALINE 1000 ML 1,000 ML IV ONE ×2 (02:11→03:56)
[2019-04-21] MEDS ORDERED: KETOROLAC TROMETHAMINE INJ/PF 30 MG/1 ML SDV IV ONE (02:12)
[2019-04-21] MEDS ORDERED: METOCLOPRAMIDE HCL INJ/PF 10 MG/2 ML SDV IV ONE (02:12)
--- NOTE | 2019-04-21 02:51 | ER Document Report ---
ED General - General Chief Complaint: Anxiety Stated Complaint: ANXIETY/TROUBLE SLEEPING Time Seen by Provider: 04/21/19 01:38 TRAVEL OUTSIDE OF THE [place] IN LAST 30 DAYS: No - HPI Notes: 38-year-old female with stage IV ovarian cancer receiving chemotherapy presented this time with multiple complaints. Patient says she has been nauseated and has vomited several times today. She still feels nauseated. She feels very anxious tonight and says she is taken 2 mg of Ativan but still feels like she is unable to sleep and has a lot of free-floating anxiety. Generalized weakness and malaise. Patient was seen here by another provider approximately 1 week ago. She had a CT abdomen pelvis at that time showing metastatic disease in the retroperitoneum. - Related Data Allergies/Adverse Reactions: Penicillins Allergy (Severe, Verified 04/13/19 09:49) stop breathing, hives Sulfa (Sulfonamide Antibiotics) Allergy (Severe, Verified 04/13/19 09:49) Hives diphenhydramine [From Benadryl] Adverse Reaction (Severe, Verified 04/13/19 09:49) Anxiety Home Medications: chemo doesnt know name Past Medical History - General Information source: Patient - Social History Smoking Status: Current Every Day Smoker Frequency of alcohol use: None Drug Abuse: Marijuana Family History: Malignancy - Mother from liver cancer. Patient has suicidal ideation: No Patient has homicidal ideation: No - Past Medical History Cardiac Medical History: Reports: Hx Hypertension Denies: Hx Coronary Artery Disease, Hx Heart Attack Pulmonary Medical History: Denies: Hx Asthma, Hx Bronchitis, Hx COPD, Hx Pneumonia Neurological Medical History: Denies: Hx Cerebrovascular Accident, Hx Seizures Renal/ Medical History: Denies: Hx Peritoneal Dialysis Malignancy Medical History: Reports: Hx Ovarian Cancer Musculoskeletal Medical History: Denies Hx Arthritis Psychiatric Medical History: Denies: Hx Depression Past Surgical History: Reports: Hx Gynecologic Surgery - LEEP, Hx Herniorrhaphy, Hx Hysterectomy - Immunizations Immunizations up to date: Yes Hx Diphtheria, Pertussis, Tetanus Vaccination: No - Unsure Review of Systems - Review of Systems Notes: Constitutional: Negative for fever. HENT: Negative for sore throat. Eyes: Negative for visual changes. Cardiovascular: Negative for chest pain. Respiratory: Negative for shortness of breath. Gastrointestinal: As per HPI. Genitourinary: Negative for dysuria. Musculoskeletal: Negative for back pain. Skin: Negative for rash. Neurological: Dull headache. No focal weakness. 10 point ROS negative except as marked above and in HPI. Physical Exam - Vital signs Vitals: Temp Pulse Resp BP Pulse Ox 98.3 F 130 H 20 121/80 100 04/20/19 23:59 04/20/19 23:59 04/20/19 23:59 04/20/19 23:59 04/20/19 23:59 - Notes Notes: GENERAL: Middle-aged female who appears anxious with very flat affect. SKIN: Good turgor no rashes. HEAD: Normocephalic atraumatic. EYES: PERRLA. EOMI. Conjunctivae and sclerae clear. EARS: CANALS AND TMS CLEAR. NOSE: CLEAR. MOUTH: Moist mucosa. Good dentition. No stridor or edema. No drooling. NECK: Supple. No masses or thyromegaly. No adenopathy. Carotids 2+ without bruits. No JVD. BACK: Symmetrical without tenderness. CHEST: Respirations unlabored. Breath sounds clear and symmetrical. HEART: Tachycardic regular rhythm. No murmur gallop or rub. ABDOMEN: Soft nontender without masses, organomegaly or rebound. Bowel sounds normally active. No bruits. GENITALIA: Deferred. EXTREMITIES: No edema. No calf tenderness. Cap refill less than 1.5 seconds. Dorsalis pedis and posterior tibial pulses 3+ and symmetrical. NEUROLOGICAL: GCS 15. Alert and oriented x3. Normal gait. Fluent speech. Cranial nerves II through XII intact. Sensorimotor and cerebellar normal. Normal tone. PSYCHIATRIC: Flat affect. Course - Re-evaluation Re-evalutation: 04/21/19 03:54 Patient was given a liter of normal saline and 15 mg of IV Toradol along with 10 mg of IV Reglan. She is sleeping comfortably at this time. Her pulse rate is come down from 125 to 95. I will give her second liter of fluid prior to discharge and have her continue her usual medications. - Vital Signs Vital signs: Temp Pulse Resp BP Pulse Ox 98.9 F 130 H 19 114/75 95 04/21/19 03:15 04/20/19 23:59 04/21/19 03:01 04/21/19 03:01 04/21/19 03:01 - Laboratory Result Diagrams: 04/21/19 02:40 04/21/19 02:40 Laboratory results interpreted by me: 04/21/19 02:40 Hgb 10.8 L Hct 32.7 L RDW 18.6 H [place] % (Auto) 13.1 H Discharge - Discharge Clinical Impression: Dehydration Vomiting Qualifiers: Vomiting type: unspecified Vomiting Intractability: non-intractable Nausea presence: with nausea Qualified Code(s): R11.2 - Nausea with vomiting, unspecif ied Ovarian ca Qualifiers: Laterality: unspecified laterality Qualified Code(s): C56.9 - Malignant neoplasm of unspecified ovary Condition: Stable Disposition: HOME, SELF-CARE Additional Instructions: Return here as needed for new or worsening symptoms: Pain that is worsening or unimproved Uncontrolled vomiting High fever or shaking chills Overall worsening Follow-up with your oncologist as scheduled. Increase oral fluids Continue current medications
[2019-04-21 02:58] LABS: ABSOLUTE LYMPHOCYTES (AUTO) 1.2 10^3/uL (0.5-4.7); ABSOLUTE MONOCYTES (AUTO) 0.9 10^3/uL (0.1-1.4); ABSOLUTE NEUT (AUTO) 4.9 10^3/uL (1.7-8.2); BASOPHILS % (AUTO) 0.3 % (0-2); EOSINOPHILS % (AUTO) 0.1 % (0-6); HEMATOCRIT 32.7 % (36.0-47.0); HEMOGLOBIN 10.8 g/dL (12.0-15.5); LYMPHOCYTES % (AUTO) 17.1 % (13-45); MEAN CORPUSCULAR HEMOGLOBIN 28.4 pg (27.0-33.4); MEAN CORPUSCULAR VOLUME 86 fl (80-97); MONOCYTES % (AUTO) 13.1 % (3-13); PLATELET COUNT 385 10^3/uL (150-450); RED BLOOD COUNT 3.79 10^6/uL (3.72-5.28); RED CELL DISTRIBUTION WIDTH 18.6 % (11.5-14.0); SEGMENTED NEUTROPHILS % (AUTO) 69.4 % (42-78); TOTAL CELLS COUNTED % (AUTO) 100 %; WHITE BLOOD COUNT 7.1 10^3/uL (4.0-10.5)
[2019-04-21 03:11] LABS: ALBUMIN 3.9 g/dL (3.5-5.0); ALKALINE PHOSPHATASE 65 U/L (38-126); ANION GAP 9 (5-19); ASPARTATE AMINO TRANSFERASE 24 U/L (14-36); BILIRUBIN,TOTAL 0.6 mg/dL (0.2-1.3); BLOOD UREA NITROGEN 10 mg/dL (7-20); CALCIUM 9.2 mg/dL (8.4-10.2); CARBON DIOXIDE 29 mmol/L (22-30); CHLORIDE 103 mmol/L (98-107); GLUCOSE 108 mg/dL (75-110); POTASSIUM 4.1 mmol/L (3.6-5.0); TOTAL PROTEIN 7.1 g/dL (6.3-8.2)
[2019-04-21 03:16] VITALS: BP 114/75
--- NOTE | 2019-04-21 09:11 | EKG REPORT ---
SEVERITY:- BORDERLINE ECG - SINUS TACHYCARDIA BORDERLINE T ABNORMALITIES, DIFFUSE LEADS : Confirmed by: Kailey Swann 21-Apr-2019 09:10:01
== END 2019-04-21 05:45 | disposition home or self-care (01) ==
LOC: ER 23:28
DX: R11.2 Nausea with vomiting, unspecified (principal); E86.0 Dehydration; C56.9 Malignant neoplasm of unspecified ovary; C78.6 Secondary malignant neoplasm of retroperitoneum and peritoneum; Z79.899 Other long term (current) drug therapy; F41.9 Anxiety disorder, unspecified; R53.1 Weakness; R53.81 Other malaise; R51 Headache; R00.0 Tachycardia, unspecified; F17.200 Nicotine dependence, unspecified, uncomplicated; F12.10 Cannabis abuse, uncomplicated; I10 Essential (primary) hypertension; Z88.0 Allergy status to penicillin; Z88.2 Allergy status to sulfonamides
CPT/HCPCS: 93005; 36415; 83735; 85025; 80053; 93010; J1885; J2765; J7030

== ENCOUNTER 2019-04-24 08:28 | Inpatient (IN) | payer BC ==
[2019-04-24] MEDS ORDERED: ONDANSETRON HCL INJ/PF 4 MG/2 ML SDV IV ONE ×3 (08:42→15:05)
[2019-04-24] MEDS ORDERED: NORMAL SALINE 1000 ML 1,000 ML IV ONE (08:42)
[2019-04-24 09:33] LABS: ABSOLUTE LYMPHOCYTES (AUTO) 0.7 10^3/uL (0.5-4.7); ABSOLUTE MONOCYTES (AUTO) 0.1 10^3/uL (0.1-1.4); ABSOLUTE NEUT (AUTO) 3.5 10^3/uL (1.7-8.2); BASOPHILS % (AUTO) 0.4 % (0-2); EOSINOPHILS % (AUTO) 0.2 % (0-6); HEMATOCRIT 27.4 % (36.0-47.0); HEMOGLOBIN 9.4 g/dL (12.0-15.5); LYMPHOCYTES % (AUTO) 15.7 % (13-45); MEAN CORPUSCULAR HEMOGLOBIN 29.3 pg (27.0-33.4); MEAN CORPUSCULAR HGB CONC 34.3 g/dL (32.0-36.0); MEAN CORPUSCULAR VOLUME 86 fl (80-97); MONOCYTES % (AUTO) 3.3 % (3-13); PLATELET COUNT 324 10^3/uL (150-450); RED CELL DISTRIBUTION WIDTH 18.3 % (11.5-14.0); SEGMENTED NEUTROPHILS % (AUTO) 80.4 % (42-78); TOTAL CELLS COUNTED % (AUTO) 100 %; WHITE BLOOD COUNT 4.3 10^3/uL (4.0-10.5)
[2019-04-24 09:59] LABS: ALBUMIN 3.9 g/dL (3.5-5.0); ALKALINE PHOSPHATASE 66 U/L (38-126); ANION GAP 11 (5-19); ASPARTATE AMINO TRANSFERASE 23 U/L (14-36); BILIRUBIN,DIRECT 0.3 mg/dL (0.0-0.4); BILIRUBIN,TOTAL 0.7 mg/dL (0.2-1.3); BLOOD UREA NITROGEN 18 mg/dL (7-20); CALCIUM 9.4 mg/dL (8.4-10.2); CARBON DIOXIDE 28 mmol/L (22-30); CHLORIDE 100 mmol/L (98-107); GLUCOSE 130 mg/dL (75-110); POTASSIUM 3.5 mmol/L (3.6-5.0)
[2019-04-24 11:03] LABS: INTERNATIONAL RATION (INR) 1.06; PROTHROMBIN TIME 13.8 SEC (11.4-15.4)
[2019-04-24] MEDS ORDERED: MORPHINE SULFATE 10 MG/ML INJ IV ONE (11:58)
--- NOTE | 2019-04-24 12:10 | RADIOLOGY REPORT (SQ) ---
EXAM DESCRIPTION: ACUTE ABDOMEN SERIES COMPLETED DATE/TIME: 04/24/2019 11:54 am REASON FOR STUDY: Nausea, vomiting blood COMPARISON: 09/29/2017 NUMBER OF VIEWS: Three views. TECHNIQUE: Frontal chest, supine abdomen and upright/decubitus abdomen radiographic images acquired. LIMITATIONS: None. FINDINGS: CHEST: Lungs are clear. Venous access catheter SVC. FREE AIR: None. No abnormal gas collections. BOWEL GAS PATTERN: Nonobstructive pattern. No dilated loops or air fluid levels. CALCIFICATIONS: No suspicious calcifications. HARDWARE: Hernia coils. SOFT TISSUES: No gross mass or suggestion of organomegaly. BONES: No acute fracture. No worrisome bone lesions. OTHER: No other significant finding. IMPRESSION: NO RADIOGRAPHIC EVIDENCE FOR ACUTE ABDOMINAL DISEASE. TECHNICAL DOCUMENTATION: JOB ID: [id number] 2010 [employer]- All Rights Reserved Reading location - IP/workstation name: [email or web address]
[2019-04-24 12:28] LABS: APPEARANCE,URINE SLIGHTLY-CLOUDY; BILIRUBIN,URINE NEGATIVE (NEGATIVE); COLOR,URINE YELLOW; GLUCOSE, URINE NEGATIVE (NEGATIVE); KETONES,URINE 80 mg/dL (NEGATIVE); LEUKOCYTE ESTERASE,URINE TRACE (NEGATIVE); NITRITE,URINE NEGATIVE (NEGATIVE); PROTEIN,URINE 100 mg/dL (NEGATIVE); URINE SPECIFIC GRAVITY 1.023
--- NOTE | 2019-04-24 13:01 | ER Document Report ---
Entered by REBEKA LOGAN SCRIBE 04/24/19 1052 Acting as scribe for:JAZMINE TEMPLE MD ED GI/ - General Chief Complaint: Vomiting Stated Complaint: VOMITING BLOOD Time Seen by Provider: 04/24/19 10:47 Information source: Patient, [facility] Records Notes: This 38 year old female patient with known primary ovarian cancer with metastatic disease presents to the emergency department today with complaints of hematemesis last night. Patient states the emesis last night was dark red. On 04/13/19 the patient was seen here for having "dark colored" vomit, Hemoccult was positive, she was sent home on Protonix and Prilosec. Patient had a CT of the abdomen and pelvis performed on that day which when compared to a CT scan [facility] August 2017 showed "worsening metastatic disease with enlarged cardiophrenic, casie-aortic, retroperitoneal, and mesenteric adenopathy." She was told to follow-up with her oncologist and a GI doctor after this visit and she has not done that yet. Patient was seen here again on 04/13/18 for continued vomiting, anxiety, and trouble sleeping. Patient adds that she restarted chemotherapy 4 days ago after "not doing it for quite some time". Patient states that she does not really feel nauseated, adding that she thinks the vomiting is due to her abdominal pain. Patient states that the "pain builds up, builds up, and then she vomits". Patient states she sometimes gets relief after emesis. Patient denies constipation. Pertinent PMHx/PSHx: Primary ovarian cancer with metastatic disease - additional PMHx/PSHx not pertinent to this visit as recorded. Oncologist: Doctor [facility] TRAVEL OUTSIDE OF THE [place] IN LAST 30 DAYS: No - Related Data Allergies/Adverse Reactions: Penicillins Allergy (Severe, Verified 04/24/19 08:35) stop breathing, hives Sulfa (Sulfonamide Antibiotics) Allergy (Severe, Verified 04/24/19 08:35) Hives diphenhydramine [From Benadryl] Adverse Reaction (Severe, Verified 04/24/19 08:35) Anxiety Past Medical History - Social History Smoking Status: Never Smoker Chew tobacco use (# tins/day): No Frequency of alcohol use: None Drug Abuse: Marijuana Family History: Malignancy - Mother from liver cancer. Patient has suicidal ideation: No Patient has homicidal ideation: No - Past Medical History Cardiac Medical History: Reports: Hx Hypertension Denies: Hx Coronary Artery Disease, Hx Heart Attack Pulmonary Medical History: Denies: Hx Asthma, Hx Bronchitis, Hx COPD, Hx Pneumonia Neurological Medical History: Denies: Hx Cerebrovascular Accident, Hx Seizures Renal/ Medical History: Denies: Hx Peritoneal Dialysis Malignancy Medical History: Reports: Hx Ovarian Cancer Musculoskeletal Medical History: Denies Hx Arthritis Psychiatric Medical History: Denies: Hx Depression Past Surgical History: Reports: Hx Gynecologic Surgery - LEEP, Hx Herniorrhaphy, Hx Hysterectomy - Immunizations Immunizations up to date: Yes Hx Diphtheria, Pertussis, Tetanus Vaccination: No - Unsure Review of Systems - Review of Systems Constitutional: No symptoms reported EENT: No symptoms reported Cardiovascular: No symptoms reported Respiratory: No symptoms reported Gastrointestinal: See HPI, Abdominal pain, Vomiting, Blood in vomit. denies: Nausea, Constipation Genitourinary: No symptoms reported Female Genitourinary: No symptoms reported Musculoskeletal: No symptoms reported Skin: No symptoms reported Hematologic/Lymphatic: No symptoms reported Neurological/Psychological: No symptoms reported -: Yes All other systems reviewed and negative Physical Exam - Vital signs Vitals: Temp Pulse Resp BP Pulse Ox 97.4 F 120 H 18 112/83 100 04/24/19 08:33 04/24/19 08:33 04/24/19 08:33 04/24/19 08:33 04/24/19 08:33 - Notes Notes: Physical Exam: General: Alert, appears chronically ill, uncomfortable, and continuously yawns throughout exam. HEENT: Normocephalic. Atraumatic. PERRL. Extraocular movements intact. Oropharynx clear. Dry oral mucosa. Neck: Supple. Non-tender. Respiratory: No respiratory distress. Clear and equal breath sounds bilaterally. Cardiovascular: Regular rate and rhythm. Abdominal: Non-tender. No distension. Hypoactive bowel sounds. Back: No gross abnormalities. Extremities: Moves all four extremities. Upper extremities: Normal inspection. Normal ROM. Lower extremities: Normal inspection. No edema. Normal ROM. Calves are symmetric and size and soft, non-tender. Neurological: Normal cognition. AAOx4. Normal speech. Psychological: Normal affect. Normal Mood. Skin: Warm. Dry. Pallor. Course - Vital Signs Vital signs: Temp Pulse Resp BP Pulse Ox 97.4 F 94 17 124/86 H 100 04/24/19 14:08 04/24/19 14:08 04/24/19 14:08 04/24/19 14:08 04/24/19 14:08 - Laboratory Result Diagrams: 04/24/19 09:20 04/24/19 09:20 Laboratory results interpreted by me: 04/24/19 04/24/19 04/24/19 09:20 09:20 12:06 RBC 3.20 L Hgb 9.4 L Hct 27.4 L RDW 18.3 H Seg Neutrophils % 80.4 H Potassium 3.5 L Creatinine 0.40 L Glucose 130 H Urine Protein 100 H Urine Ketones 80 H Urine Urobilinogen 4.0 H Ur Leukocyte Esterase TRACE H Urine Ascorbic Acid 20 H - Diagnostic Test Radiology reviewed: Image reviewed, Reports reviewed - Acute abdominal series does not show any abnormalities. There is a lot of stool in the colon noted. - Consults Dr. Barraza Time consulted: 13:05 Consulted provider: will come to ER - Plans to do endoscopy here in the emergency room with the endoscopy team. Dr. Plaza Time consulted: 15:05 Consulted provider: will come to ER Discharge - Discharge Clinical Impression: Upper GI bleed Disseminated ovarian cancer Qualifiers: Laterality: unspecified laterality Qualified Code(s): C56.9 - Malignant neoplasm of unspecified ovary Vomiting Qualifiers: Vomiting type: hematemesis Nausea presence: with nausea Qualified Code(s): K92.0 - Hematemesis Condition: Stable Disposition: ADMITTED INPATIENT Admitting Provider: Mela (Hospitalist) Unit Admitted: Medical Floor I personally performed the services described in the documentation, reviewed and edited the documentation which was dictated to the scribe in my presence, and it accurately records my words and actions.
[2019-04-24] MEDS ORDERED: ONDANSETRON HCL INJ/PF 4 MG/2 ML SDV ONE (16:11)
[2019-04-24] MEDS ORDERED: DIPHENHYDRAMINE HCL 50 MG/ML VIAL ONE (16:11)
[2019-04-24] MEDS ORDERED: FENTANYL CITRATE INJ/PF 100 MCG/2 ML AMPUL ONE (16:12)
[2019-04-24] MEDS ORDERED: NALOXONE HCL INJ/PF 0.4 MG/1 ML SDV ONE (16:12)
[2019-04-24] MEDS ORDERED: ACETAMINOPHEN 650 MG SUPP.RECT PR PRN (16:12)
[2019-04-24] MEDS ORDERED: GLUCAGON,HUMAN RECOMB 1 MG INJ SUBCUT PRN (16:12)
[2019-04-24] MEDS ORDERED: DEXTROSE 50%-WATER 25 GM/50 ML DISP.SYRIN IV PRN ×2 (16:12)
[2019-04-24] MEDS ORDERED: DEXTROSE 40% GEL 15 GM TUBE PO PRN ×2 (16:12)
[2019-04-24] MEDS ORDERED: GLUCAGON,HUMAN RECOMB 1 MG INJ ONE (16:12)
[2019-04-24] MEDS ORDERED: MIDAZOLAM 2 MG/2 ML INJ ONE (16:12)
[2019-04-24] MEDS ORDERED: EPINEPHRINE INJ 1 MG/10 ML DISP.SYRIN ONE (16:12)
[2019-04-24] MEDS ORDERED: FLUMAZENIL INJ 0.5 MG/5 ML VIAL ONE (16:12)
[2019-04-24] MEDS ORDERED: PROMETHAZINE HCL 25 MG SUPP.RECT PR PRN (16:24)
--- NOTE | 2019-04-24 16:30 | PDOC H&P ---
History of Present Illness Admission Date/PCP: 04/24/19 15:31 Patient complains of: Vomiting blood History of Present Illness: JAYLENE HENDERSON is a 38 year old female with a history of diffusely metastatic ovarian cancer. She has been to the emergency department 2 other times in the last 2 weeks. Once was with nausea and vomiting and one was for anxiety and inability to sleep. She just started a new chemotherapy regimen this week. She states that on Thursday and Thursday after the chemo she vomited once or twice each day. Today, however, she vomited up bright red blood. Her father states that occasionally they would see a speck of blood in the emesis but never [place] blood like today. On exam she is not hyper nor hypotensive. She is a little ta chycardic. This is likely from volume depletion. She did get 1 L of normal saline. Her hemoglobin was 9.4, her potassium was 3.5 and her renal function is normal. A CT scan performed on April 13, 2019 showed worsening metastatic disease with enlarged cardiophrenic, para-aortic, retroperitoneal and mesenteric adenopathy. I do not believe the patient has had a chance to discuss these results with either of her oncologist. The patient has also been having a lot of abdominal pain. She states that she has had significant difficulty eating. Her appetite is been very poor. She will tend to vomit often with meals. The patient will be admitted to the hospitalist service. We will recheck her hemoglobin and continue to monitor her hemoglobin and hematocrit. She will need repletion of potassium. I will give this intravenous as she is n.p.o. for her gastroscopy. Dr. Barraza will be performing a gastroscopy to try and identify the source of bleeding. Past Medical History Cardiac Medical History: Reports: Hypertension Denies: Coronary Artery Disease, Myocardial Infarction Pulmonary Medical History: Denies: Asthma, Bronchitis, Chronic Obstructive Pulmonary Disease (COPD), Pneumonia Neurological Medical History: Denies: Seizures Malignancy Medical History: Reports: Ovarian Cancer Musculoskeltal Medical History: Denies: Arthritis Psychiatric Medical History: Denies: Depression Hematology: Denies: Anemia Past Surgical History Past Surgical History: Reports: Herniorrhaphy, Hysterectomy Social History Information Source: Patient, [facility] Records Lives with: Spouse/Significant other Smoking Status: Never Smoker Electronic Cigarette use?: No Frequency of Alcohol Use: None Hx Recreational Drug Use: Yes Drugs: Marijuana - For its beneficial effects on nausea and vomiting related to chemotherapy Hx Prescription Drug Abuse: No - Advance Directive Resuscitation Status: Full Code Surrogate healthcare decision maker:: Her would be the designated decision maker. Please also see ACP note. Family History Family History: CAD, Malignancy - Mother from liver cancer. Parental Family History Reviewed: Yes Children Family History Reviewed: Yes Sibling(s) Family History Reviewed.: Yes Medication/Allergy Home Medications: Ascorbic Acid [Vitamin C] 1,000 mg PO DAILY 04/24/19 Lorazepam [Ativan 1 mg Tablet] 1 mg PO BIDP PRN 04/24/19 Morphine Sulfate [Morphine Sulfate ER] 30 mg PO BID 04/24/19 Multivitamin [Chewable-Blayne] 2 each PO DAILY 04/24/19 Oxycodone HCl [Roxicodone] 5 mg PO Q4HP PRN 04/24/19 Allergies/Adverse Reactions: Penicillins Allergy (Severe, Verified 04/24/19 08:35) stop breathing, hives Sulfa (Sulfonamide Antibiotics) Allergy (Severe, Verified 04/24/19 08:35) Hives diphenhydramine [From Benadryl] Adverse Reaction (Severe, Verified 04/24/19 08:35) Anxiety Review of Systems All systems: reviewed and no additional remarkable complaints except as stated Constitutional: PRESENT: anorexia, headache(s), weight loss Cardiovascular: PRESENT: palpitations Gastrointestinal: PRESENT: abdominal pain, hematemesis, nausea, vomiting Physical Exam Vital Signs: Temp Pulse Resp BP Pulse Ox 97.4 F 94 17 124/86 H 100 04/24/19 14:08 04/24/19 14:08 04/24/19 14:08 04/24/19 14:08 04/24/19 14:08 Intake & Output 04/23/19 04/24/19 04/25/19 06:59 06:59 06:59 Intake Total 1000 Balance 1000 Weight 72.9 kg General appearance: PRESENT: cooperative, well-developed - Well-developed 38-year-old female in moderate distress sitting on the gurney. Head exam: PRESENT: atraumatic, normocephalic Eye exam: PRESENT: conjunctiva pale, EOMI, PERRLA. ABSENT: scleral icterus Ear exam: PRESENT: normal external ear exam. ABSENT: bleeding, drainage Mouth exam: PRESENT: dry mucosa, tongue midline Teeth exam: ABSENT: poor dentation Neck exam: PRESENT: full ROM. ABSENT: carotid bruit, JVD Respiratory exam: PRESENT: clear to auscultation mike, symmetrical, unlabored. ABSENT: accessory muscle use, prolonged expiratory phas, rales, rhonchi, tachypnea, wheezes Cardiovascular exam: PRESENT: RRR - Sinus rhythm with tachycardia, tachycardia GI/Abdominal exam: PRESENT: hypoactive bowel sounds, soft, tenderness - Very tender across the upper abdomen into the epigastric area. ABSENT: firm Rectal exam: PRESENT: deferred Gentrourinary exam: ABSENT: indwelling catheter Extremities exam: PRESENT: pedal edema - Trace Musculoskeletal exam: PRESENT: ambulatory, normal inspection. ABSENT: deformity Neurological exam: PRESENT: alert, awake, oriented to person, oriented to place, oriented to time, oriented to situation, CN II-XII grossly intact. ABSENT: altered, motor sensory deficit Psychiatric exam: PRESENT: anxious, appropriate affect - Affect reflects her discomfort. ABSENT: agitated Focused psych exam: ABSENT: delusional, restlessness Skin exam: PRESENT: dry, normal color, warm. ABSENT: rash Results Laboratory Results: 04/24/19 09:20 04/24/19 09:20 04/24/19 04/24/19 04/24/19 09:20 09:20 09:20 WBC 4.3 RBC 3.20 L Hgb 9.4 L Hct 27.4 L MCV 86 MCH 29.3 MCHC 34.3 RDW 18.3 H Plt Count 324 Seg Neutrophils % 80.4 H Sodium 139.2 Potassium 3.5 L Chloride 100 Carbon Dioxide 28 Anion Gap 11 BUN 18 Creatinine 0.40 L Est GFR ( Amer) > 60 Glucose 130 H Calcium 9.4 Total Bilirubin 0.7 AST 23 Alkaline Phosphatase 66 Total Protein 7.0 Albumin 3.9 Urine Color Urine Appearance Urine pH Ur Specific [place] Urine Protein Urine Glucose (UA) Urine Ketones Urine Blood Urine Nitrite Ur Leukocyte Esterase Urine WBC (Auto) Urine RBC (Auto) Blood Type O POSITIVE Antibody Screen NEGATIVE 04/24/19 12:06 WBC RBC Hgb Hct MCV MCH MCHC RDW Plt Count Seg Neutrophils % Sodium Potassium Chloride Carbon Dioxide Anion Gap BUN Creatinine Est GFR ( Amer) Glucose Calcium Total Bilirubin AST Alkaline Phosphatase Total Protein Albumin Urine Color YELLOW Urine Appearance SLIGHTLY-CLOUDY Urine pH 8.0 Ur Specific [place] 1.023 Urine Protein 100 H Urine Glucose (UA) NEGATIVE Urine Ketones 80 H Urine Blood NEGATIVE Urine Nitrite NEGATIVE Ur Leukocyte Esterase TRACE H Urine WBC (Auto) 7 Urine RBC (Auto) 1 Blood Type Antibody Screen Impressions: Acute Abdomen Series 04/24/19 11:15 IMPRESSION: NO RADIOGRAPHIC EVIDENCE FOR ACUTE ABDOMINAL DISEASE. Assessment and Plan - Diagnosis (1) Hematemesis Qualifiers: Nausea presence: with nausea Qualified Code(s): K92.0 - Hematemesis Is this a current diagnosis for this admission?: Yes (2) Chemotherapy induced nausea and vomiting Is this a current diagnosis for this admission?: Yes (3) Abdominal pain Qualifiers: Abdominal location: upper abdomen, unspecified Qualified Code(s): R10.10 - Upper abdominal pain, unspecified Is this a current diagnosis for this admission?: Yes (4) Anemia Qualifiers: Anemia type: other cause Other causes of anemia: chronic disease, neoplastic Qualified Code(s): D63.0 - Anemia in neoplastic disease Is this a current diagnosis for this admission?: Yes (5) Hypokalemia Is this a current diagnosis for this admission?: Yes (6) Disseminated ovarian cancer Qualifiers: Laterality: unspecified laterality Qualified Code(s): C56.9 - Malignant neoplasm of unspecified ovary Is this a current diagnosis for this admission?: Yes (7) Tachycardia Is this a current diagnosis for this admission?: Yes - Plan Summary Summary: 04/24/2019 Hematemesis-the patient has had nausea and vomiting recurrently. This is possibly related to the chemotherapy or the diffusely metastatic ovarian cancer in her abdomen and pelvis. She is going to have endoscopy by Dr. Barraza. With the nausea and vomiting it could be a Jackelin-Boyd tear. I have started her on IV Protonix. Abdominal pain-she has abdominal pain chronically due to her metastatic disease. As she is n.p.o., I will use intravenous Dilaudid for pain management. When she is taking food and drink by mouth I will administer oral medications. Hypokalemia-likely due to emesis. I have ordered intravenous potassium and we will monitor her electrolytes. Anemia-likely due to the chemotherapy more than anything. She does state that she has a poor appetite and it could be partly nutritional. It is unlikely that the hematemesis has caused her anemia since her hemoglobin has been low on the last 2 visits to the emergency department. Consider a multivitamin and possible iron supplement once the GI bleeding is diagnosed and treated Tachycardia-she is tachycardic. Some of it might be anxiety but I also think some of it is volume depletion. We will continue to give her IV fluids and monitor her on telemetry. She also states that her appetite is been very poor. She thinks she is losing weight. She struggles to find adequate nutrition. I have ordered a dietitian consult to possibly help with meals and strategies for her nutrition. - Time Time Spent with patient: 35 or more minutes Medications reviewed and adjusted accordingly: Yes Anticipated discharge: Home - Inpatient Certification Based on my medical assessment, after consideration of the patient's comorbidities, presenting symptoms, or acuity I expect that the services needed warrant INPATIENT care.: Yes I certify that my determination is in accordance with my understanding of Medicare's requirements for reasonable and necessary INPATIENT services [42 CFR 412.3e].: Yes Medical Necessity: Need For IV Fluids, Need For Continuous Telemetry Monitoring, Need for Pain Control Post Hospital Care: D/C Studio Operator Documentation
[2019-04-24] MEDS ORDERED: POTASSI CL 20 MEQ/50 ML RIDER 20 MEQ/50 ML RTUPB IV ONE (17:00)
[2019-04-24] MEDS ORDERED: LORAZEPAM INJ 2 MG/1 ML VIAL IV PRN (17:10)
[2019-04-24] MEDS: NORMAL SALINE 1000 ML 1,000 ML IV PRN ×2 (18:06→19:49)
--- NOTE | 2019-04-24 18:41 | Operative Report ---
Operative Report DATE OF SURGERY: 04/24/19 PREOPERATIVE DIAGNOSIS: 1. Acute upper GI bleed with hematemesis. 2. Anemia secondary to a blood loss. 3. Metastatic ovarian carcinoma POSTOPERATIVE DIAGNOSIS: Same with active bleeding from endoluminal mass in the gastric antrum central duration OPERATION: 1. Esophagogastroduodenoscopy. 2. Epinephrine injection hemostatic control of bleeding from endoluminal mass in the gastric antrum SURGEON: SHARAD BRADLEY ANESTHESIA: Moderate Sedation TISSUE REMOVED OR ALTERED: None COMPLICATIONS: None ESTIMATED BLOOD LOSS: Minimal INTRAOPERATIVE FINDINGS: See below PROCEDURE: The patient was taken from the emergency department room to the trauma bay, placed in the semirecumbent position left lateral tilt, with instrumentation for upper endoscopy set up, and monitoring devices attached. Surgical plan and surgical timeout were conducted. Appropriate level of conscious sedation was induced. This required approximately 8 mg of Versed and 50 mcg of fentanyl. Oral mouthpiece inserted, and the flexible upper endoscope was inserted through the oropharynx, down the esophagus. There was a moderate amount of old blood in the esophagus that aspirated out easily. The GE junction was at approximately a 32 cm from the incisor. Once we got into the stomach there was a mixture of old blood which easily aspirated out, mostly coffee ground in nature. We then saw the site of acute bleeding which was oozing bright red blood. This was a pedunculated masslike endoluminal process in the gastric antrum, greater curvature region. Multiple photos were taken. Oozing was almost in a circumferential fashion around this pedunculated mass, with a central, soft almost ulcerated center. I advanced the endoscope through the pylorus which appeared grossly normal into the first and second portions of the duodenum which also appeared normal without any active bleeding. We now called our attention to the active site of bleeding. We brought onto the field through the endoscope the epinephrine injection device. We used 100 mcg/cc of 1-10,000 epinephrine. 4 sites were injected in 12, 3, 6, and 9:00 positions at the apex of this pedunculated mass, approximately 1 cc at each site. The bleeding abated. Note the central element of the mass appeared very spongy and almost necrotic. Multiple photos were taken. The mass appeared to be perhaps 2+ centimeters in diameter. No biopsies were taken due to the active bleeding, patient coughing, and the significant amount of sedation required to achieve the current objectives. The stomach was decompressed of air, and the scope brought out through the patient's oropharynx. She tolerated procedure well. Synoptic report: Endoscopic confirmation of acute GI bleed from a endoluminal mass of unknown etiology; no biopsies performed; epinephrine successfully injected and abated bleeding. Recommendations: 1. Supportive care. If patient rebleeds, please reconsult surgery. 2. I reviewed the findings with the patient and patient's father. My recommendation is the patient have a follow-up endoscopy after the acute process subsides, 4 to 6 weeks from now. This can be performed by general surgery or a communications technologist. She would like to follow-up with her physicians in [facility] on regarding this. 3. Surgery will sign off at this point. I have discussed the above with Dr. Plaza. Please reconsult surgery if clinically indicated Please send copy of this to [facility]
--- NOTE | 2019-04-24 18:53 | ADVANCED CARE ---
- Diagnosis (1) Hematemesis Diagnosis Current: Yes (2) Chemotherapy induced nausea and vomiting Diagnosis Current: Yes (3) Abdominal pain Diagnosis Current: Yes (4) Anemia Diagnosis Current: Yes (5) Hypokalemia Diagnosis Current: Yes (6) Disseminated ovarian cancer Diagnosis Current: Yes (7) Tachycardia Diagnosis Current: Yes Attendance: The discussion was held at the bedside with the patient and her father present. Resuscitation Status: Full Code Discussion: The patient has stage IV ovarian cancer. She is having hematemesis. She is in constant pain. She is in a trial program for chemotherapy. Her mother and brother from cancer. The patient has been struggling with her illness for some time. Her and father are both aware of her wishes. She does want to be a full code but would not want to be kept alive in a vegetative state. We discussed the use of a living well and poor healthcare proxy. The patient is comfortable with the knowledge that her and father are well aware of her wishes. Care Planning Goals: Support the patient with her current efforts to treat her illness. Consider hospice if she takes a turn for the worse. Document(s) Completed: None Time Spent: 18 minutes
[2019-04-24] MEDS: HYDROMORPHONE HCL INJ/PF 2 MG/ML AMPULE IV PRN ×2 (19:49→23:44)
[2019-04-24] MEDS: ONDANSETRON HCL INJ/PF 4 MG/2 ML SDV IV PRN (19:52)
[2019-04-24] MEDS: PANTOPRAZOLE SODIUM 40 MG VIAL IV SCH (21:14)
[2019-04-25] MEDS: HYDROMORPHONE HCL INJ/PF 2 MG/ML AMPULE IV PRN ×5 (03:58→20:57)
[2019-04-25] MEDS: NORMAL SALINE 1000 ML 1,000 ML IV PRN ×3 (04:02→21:07)
[2019-04-25 07:22] LABS: ABSOLUTE LYMPHOCYTES (AUTO) 1.1 10^3/uL (0.5-4.7); ABSOLUTE MONOCYTES (AUTO) 0.2 10^3/uL (0.1-1.4); ABSOLUTE NEUT (AUTO) 1.9 10^3/uL (1.7-8.2); BASOPHILS % (AUTO) 0.7 % (0-2); EOSINOPHILS % (AUTO) 0.6 % (0-6); HEMATOCRIT 20.7 % (36.0-47.0); LYMPHOCYTES % (AUTO) 34.2 % (13-45); MEAN CORPUSCULAR HGB CONC 33.9 g/dL (32.0-36.0); MEAN CORPUSCULAR VOLUME 86 fl (80-97); MONOCYTES % (AUTO) 5.4 % (3-13); PLATELET COUNT 227 10^3/uL (150-450); RED BLOOD COUNT 2.43 10^6/uL (3.72-5.28); RED CELL DISTRIBUTION WIDTH 18.4 % (11.5-14.0); SEGMENTED NEUTROPHILS % (AUTO) 59.1 % (42-78); TOTAL CELLS COUNTED % (AUTO) 100 %; WHITE BLOOD COUNT 3.2 10^3/uL (4.0-10.5)
[2019-04-25] MEDS: PROMETHAZINE HCL INJ 25 MG/1 ML VIAL IV PRN ×2 (07:23→18:51)
[2019-04-25 07:45] LABS: ALBUMIN 2.7 g/dL (3.5-5.0); ALKALINE PHOSPHATASE 44 U/L (38-126); ASPARTATE AMINO TRANSFERASE 18 U/L (14-36); BILIRUBIN,TOTAL 0.3 mg/dL (0.2-1.3); BLOOD UREA NITROGEN 10 mg/dL (7-20); CALCIUM 8.1 mg/dL (8.4-10.2); CARBON DIOXIDE 27 mmol/L (22-30); CHLORIDE 107 mmol/L (98-107); GLUCOSE 88 mg/dL (75-110); POTASSIUM 4.3 mmol/L (3.6-5.0); TOTAL PROTEIN 5.2 g/dL (6.3-8.2)
[2019-04-25 07:52] LABS: PREALBUMIN 8.4 mg/dL (17.6-36.0)
[2019-04-25 08:26] LABS: ANION GAP 4 (5-19)
[2019-04-25] MEDS: PANTOPRAZOLE SODIUM 40 MG VIAL IV SCH ×2 (09:40→20:59)
[2019-04-25] MEDS ORDERED: NORMAL SALINE 250 ML IV PRN ×2 (11:36)
--- NOTE | 2019-04-25 11:36 | PDOC PROGRESS REPORT ---
Subjective Progress Note for:: 04/25/19 Subjective:: Laying in bed with an ice pack on her head. She reports having a migraine. She also reports ongoing significant epigastric pain. She has been started on clear liquids. Her hemoglobin has dropped to 7.0. Reason For Visit: HEMATEMESIS,OVARIAN CANCER,HYPOKALEMIA,TACHYCARDIA Physical Exam Vital Signs: Temp Pulse Resp BP Pulse Ox 97.7 F 84 16 112/70 98 04/25/19 07:47 04/25/19 07:47 04/25/19 07:47 04/25/19 07:47 04/25/19 07:47 Intake & Output 04/24/19 04/25/19 04/26/19 06:59 06:59 06:59 Intake Total 2765 Balance 2765 Weight 68.8 kg General appearance: PRESENT: cooperative, well-developed, other Head exam: PRESENT: atraumatic, normocephalic Eye exam: PRESENT: conjunctiva pale Ear exam: PRESENT: normal external ear exam. ABSENT: bleeding, drainage Cardiovascular exam: PRESENT: RRR, +S1, +S2, systolic murmur - 2/6. ABSENT: irregular rhythm, tachycardia GI/Abdominal exam: PRESENT: diminished bowel sounds, soft, tenderness - And epigastrium. ABSENT: distended, firm, guarding Rectal exam: PRESENT: deferred Extremities exam: PRESENT: pedal edema - Trace Musculoskeletal exam: PRESENT: ambulatory Neurological exam: PRESENT: alert, awake, oriented to person, oriented to place, oriented to time, oriented to situation, CN II-XII grossly intact Psychiatric exam: PRESENT: flat affect. ABSENT: agitated, anxious Focused psych exam: ABSENT: delusional, restlessness Results Laboratory Results: 04/25/19 05:45 04/25/19 05:45 04/24/19 04/24/19 04/25/19 09:20 12:06 05:45 WBC 3.2 L RBC 2.43 L Hgb 7.0 L D Hct 20.7 L MCV 86 MCH 29.0 MCHC 33.9 RDW 18.4 H Plt Count 227 Seg Neutrophils % 59.1 Sodium Potassium Chloride Carbon Dioxide Anion Gap BUN Creatinine Est GFR ( Amer) Glucose Calcium Magnesium Total Bilirubin AST Alkaline Phosphatase Total Protein Albumin Prealbumin Urine Color YELLOW Urine Appearance SLIGHTLY-CLOUDY Urine pH 8.0 Ur Specific Sparks 1.023 Urine Protein 100 H Urine Glucose (UA) NEGATIVE Urine Ketones 80 H Urine Blood NEGATIVE Urine Nitrite NEGATIVE Ur Leukocyte Esterase TRACE H Urine WBC (Auto) 7 Urine RBC (Auto) 1 Blood Type O POSITIVE Antibody Screen NEGATIVE 04/25/19 05:45 WBC RBC Hgb Hct MCV MCH MCHC RDW Plt Count Seg Neutrophils % Sodium 138.4 Potassium 4.3 Chloride 107 Carbon Dioxide 27 Anion Gap 4 L BUN 10 Creatinine 0.47 L Est GFR ( Amer) > 60 Glucose 88 Calcium 8.1 L Magnesium 1.8 Total Bilirubin 0.3 AST 18 Alkaline Phosphatase 44 Total Protein 5.2 L Albumin 2.7 L Prealbumin 8.4 L Urine Color Urine Appearance Urine pH Ur Specific Sparks Urine Protein Urine Glucose (UA) Urine Ketones Urine Blood Urine Nitrite Ur Leukocyte Esterase Urine WBC (Auto) Urine RBC (Auto) Blood Type Antibody Screen Impressions: Acute Abdomen Series 04/24/19 11:15 IMPRESSION: NO RADIOGRAPHIC EVIDENCE FOR ACUTE ABDOMINAL DISEASE. Assessment and Plan - Diagnosis (1) Hematemesis Qualifiers: Nausea presence: with nausea Qualified Code(s): K92.0 - Hematemesis Is this a current diagnosis for this admission?: Yes (2) Chemotherapy induced nausea and vomiting Is this a current diagnosis for this admission?: Yes (3) Abdominal pain Qualifiers: Abdominal location: upper abdomen, unspecified Qualified Code(s): R10.10 - Upper abdominal pain, unspecified Is this a current diagnosis for this admission?: Yes (4) Anemia Qualifiers: Anemia type: other cause Other causes of anemia: chronic disease, neoplastic Qualified Code(s): D63.0 - Anemia in neoplastic disease Is this a current diagnosis for this admission?: Yes (5) Hypokalemia Is this a current diagnosis for this admission?: Yes (6) Disseminated ovarian cancer Qualifiers: Laterality: unspecified laterality Qualified Code(s): C56.9 - Malignant neoplasm of unspecified ovary Is this a current diagnosis for this admission?: Yes (7) Tachycardia Is this a current diagnosis for this admission?: Yes - Plan Summary Summary: 04/24/2019 Hematemesis-the patient has had nausea and vomiting recurrently. This is possibly related to the chemotherapy or the diffusely metastatic ovarian cancer in her abdomen and pelvis. She is going to have endoscopy by Dr. Barraza. With the nausea and vomiting it could be a Jackelin-Boyd tear. I have started her on IV Protonix. Abdominal pain-she has abdominal pain chronically due to her metastatic disease. As she is n.p.o., I will use intravenous Dilaudid for pain management. When she is taking food and drink by mouth I will administer oral medications. Hypokalemia-likely due to emesis. I have ordered intravenous potassium and we will monitor her electrolytes. Anemia-likely due to the chemotherapy more than anything. She does state that she has a poor appetite and it could be partly nutritional. It is unlikely that the hematemesis has caused her anemia since her hemoglobin has been low on the last 2 visits to the emergency department. Consider a multivitamin and possible iron supplement once the GI bleeding is diagnosed and treated Tachycardia-she is tachycardic. Some of it might be anxiety but I also think some of it is volume depletion. We will continue to give her IV fluids and monitor her on telemetry. She also states that her appetite is been very poor. She thinks she is losing weight. She struggles to find adequate nutrition. I have ordered a dietitian consult to possibly help with meals and strategies for her nutrition. 04/25/2019 The patient's hemoglobin was 7.0 this morning. 2 units of packed red blood cells were ordered and transfused. The patient has her migraine headache today. She is laying quietly in the room with an ice pack on her forehead. She still complains of abdominal pain. It is not likely that the gastric lesion is causing this but rather the marked tumor burden that she already has. She did say that she wanted to pursue treating this lesion as it is adversely affecting her eating. She is currently on clear liquids due to the friability of the lesion. Hopefully this will prevent recurrent bleeding. The patient is not having any further vomiting or hematemesis. Dr. Calderon is seeing the patient regarding coordinated management with her gynecologic oncologist in [place]. The patient does want to pursue treatment of this lesion but it is not known if she would be a good surgical candidate because of the tumor burden in her abdomen. I will defer to the oncology team to coordinate with surgery regarding treatment of this lesion. - Time Time Spent with patient: 15-24 minutes Medications reviewed and adjusted accordingly: Yes
[2019-04-25] MEDS ORDERED: NORMAL SALINE 1000 ML 1,000 ML IV PRN (11:40)
[2019-04-25] MEDS: ONDANSETRON HCL INJ/PF 4 MG/2 ML SDV IV PRN ×2 (12:11→16:40)
--- NOTE | 2019-04-25 17:23 | PDOC CONSULTATION ---
Consultation Consult Date: 04/25/19 Provider Consulted: ESTEFANIA MUNOZ Consult reason:: Hematology/Oncology consultation was requested for patient with severe nausea and headache after topotecan chemo for met ovarian cancer. History of Present Illness Admission Date/PCP: 04/24/19 15:31 History of Present Illness: JAYLENE HENDERSON is a 38 year old female who was initially diagnosed with ovarian cancer in 2017. At the time, it was thought to be widespread, metastatic, and incurable. She has been on several different chemotherapy treatments. Most recently, she was started on Topotecan - first dose 04/20/2019. Shortly thereafter, she developed nausea and vomiting. Today, she has had a migraine all day. She was able to eat breakfast, but zofran and phenergan did not help. Dilaudid also only helps for a short time. Past Medical History Cardiac Medical History: Reports: Hypertension Denies: Coronary Artery Disease, Myocardial Infarction Pulmonary Medical History: Denies: Asthma, Bronchitis, Chronic Obstructive Pulmonary Disease (COPD), Pneumonia Neurological Medical History: Denies: Seizures Malignancy Medical History: Reports: Ovarian Cancer Musculoskeltal Medical History: Denies: Arthritis Psychiatric Medical History: Denies: Depression Hematology: Denies: Anemia Past Surgical History Past Surgical History: Reports: Herniorrhaphy, Hysterectomy Social History Lives with: Spouse/Significant other Smoking Status: Unknown if Ever Smoked Electronic Cigarette use?: No Frequency of Alcohol Use: None Hx Recreational Drug Use: Yes Drugs: Marijuana Hx Prescription Drug Abuse: No - Advance Directive Resuscitation Status: Full Code Family History Family History: CAD, Malignancy - Mother from liver cancer. Parental Family History Reviewed: Yes - Mother with liver cancer. Father alive Children Family History Reviewed: No Sibling(s) Family History Reviewed.: Yes - Brother with follicular lymphoma. Medication/Allergy Home Medications: Ascorbic Acid [Vitamin C] 1,000 mg PO DAILY 04/24/19 Lorazepam [Ativan 1 mg Tablet] 1 mg PO BIDP PRN 04/24/19 Morphine Sulfate [Morphine Sulfate ER] 30 mg PO BID 04/24/19 Multivitamin [Chewable-Blayne] 2 each PO DAILY 04/24/19 Oxycodone HCl [Roxicodone] 5 mg PO Q4HP PRN 04/24/19 Allergies/Adverse Reactions: Penicillins Allergy (Severe, Verified 04/24/19 08:35) stop breathing, hives Sulfa (Sulfonamide Antibiotics) Allergy (Severe, Verified 04/24/19 08:35) Hives diphenhydramine [From Benadryl] Adverse Reaction (Severe, Verified 04/24/19 08:35) Anxiety Review of Systems Constitutional: PRESENT: headache(s). ABSENT: fever(s) Eyes: PRESENT: visual disturbances Ears: ABSENT: hearing changes Nose, Mouth, and Throat: PRESENT: headache(s). ABSENT: sore throat Cardiovascular: ABSENT: chest pain Respiratory: ABSENT: dyspnea Gastrointestinal: PRESENT: nausea, vomiting. ABSENT: diarrhea Genitourinary: PRESENT: other - stress incontinence Musculoskeletal: ABSENT: back pain Integumentary: ABSENT: rash Neurological: ABSENT: frequent falls Hematologic/Lymphatic: ABSENT: easy bleeding Physical Exam Vital Signs: Temp Pulse Resp BP Pulse Ox 98 F 92 16 120/77 100 04/25/19 16:40 04/25/19 16:40 04/25/19 16:40 04/25/19 16:40 04/25/19 16:40 Intake & Output 04/24/19 04/25/19 04/26/19 06:59 06:59 06:59 Intake Total 3065 1120 Balance 3065 1120 Weight 68.8 kg 68.8 kg General appearance: PRESENT: no acute distress, well-developed, well-nourished Exam: 38 year old female. Head exam: PRESENT: normocephalic Eye exam: PRESENT: EOMI, PERRLA Mouth exam: PRESENT: tongue midline Neck exam: ABSENT: lymphadenopathy, tenderness Respiratory exam: PRESENT: clear to auscultation mike, unlabored Cardiovascular exam: PRESENT: RRR. ABSENT: systolic murmur GI/Abdominal exam: PRESENT: soft, tenderness Extremities exam: ABSENT: +1 edema Musculoskeletal exam: PRESENT: normal inspection Neurological exam: PRESENT: alert, awake, oriented to person, oriented to place, oriented to time, oriented to situation Psychiatric exam: PRESENT: appropriate affect Skin exam: PRESENT: normal color Results Laboratory Results: 04/25/19 05:45 04/25/19 05:45 04/24/19 04/25/19 04/25/19 09:20 05:45 05:45 WBC 3.2 L RBC 2.43 L Hgb 7.0 L D Hct 20.7 L MCV 86 MCH 29.0 MCHC 33.9 RDW 18.4 H Plt Count 227 Seg Neutrophils % 59.1 Sodium 138.4 Potassium 4.3 Chloride 107 Carbon Dioxide 27 Anion Gap 4 L BUN 10 Creatinine 0.47 L Est GFR ( Amer) > 60 Glucose 88 Calcium 8.1 L Magnesium 1.8 Total Bilirubin 0.3 AST 18 Alkaline Phosphatase 44 Total Protein 5.2 L Albumin 2.7 L Prealbumin 8.4 L Blood Type O POSITIVE Antibody Screen NEGATIVE Impressions: Acute Abdomen Series 04/24/19 11:15 IMPRESSION: NO RADIOGRAPHIC EVIDENCE FOR ACUTE ABDOMINAL DISEASE. Status: Image reviewed by me Assessment & Plan - Diagnosis (1) Abdominal pain Qualifiers: Abdominal location: upper abdomen, unspecified Qualified Code(s): R10.10 - Upper abdominal pain, unspecified Is this a current diagnosis for this admission?: Yes Plan: Continue Dilaudid. She is not on a long-acting narcotic at home. (2) Anemia Qualifiers: Anemia type: other cause Other causes of anemia: chronic disease, neoplastic Qualified Code(s): D63.0 - Anemia in neoplastic disease Is this a current diagnosis for this admission?: Yes Plan: She is receiving 2 units pRBCs now. (3) Chemotherapy induced nausea and vomiting Is this a current diagnosis for this admission?: Yes Plan: I will increase Zofran dose. I would like to see the phenergan given more often, IV. Also ativan was ordered, but has not been given. (4) Disseminated ovarian cancer Qualifiers: Laterality: unspecified laterality Qualified Code(s): C56.9 - Malignant neoplasm of unspecified ovary Is this a current diagnosis for this admission?: Yes Plan: All treatment on hold until she is feeling better, then we can decide if OK to move ahead with Topotecan, or another agent. (5) Headache Is this a current diagnosis for this admission?: Yes Plan: I am concerned that her symptoms may be due to new brain mets. I will order MRI brain with and without to evaluate. If not, then increase dilaudid. - Plan Summary Plan Summary: Patient was discussed with Dr. Plaza.
[2019-04-25] MEDS: LORAZEPAM INJ 2 MG/1 ML VIAL IV PRN (20:47)
[2019-04-26 01:44] LABS: ABSOLUTE LYMPHOCYTES (AUTO) 1.3 10^3/uL (0.5-4.7); ABSOLUTE MONOCYTES (AUTO) 0.2 10^3/uL (0.1-1.4); ABSOLUTE NEUT (AUTO) 2.4 10^3/uL (1.7-8.2); BASOPHILS % (AUTO) 0.5 % (0-2); EOSINOPHILS % (AUTO) 0.5 % (0-6); HEMATOCRIT 29.7 % (36.0-47.0); LYMPHOCYTES % (AUTO) 33.4 % (13-45); MEAN CORPUSCULAR HEMOGLOBIN 29.2 pg (27.0-33.4); MEAN CORPUSCULAR HGB CONC 34.4 g/dL (32.0-36.0); MEAN CORPUSCULAR VOLUME 85 fl (80-97); MONOCYTES % (AUTO) 5.4 % (3-13); PLATELET COUNT 219 10^3/uL (150-450); RED BLOOD COUNT 3.51 10^6/uL (3.72-5.28); RED CELL DISTRIBUTION WIDTH 17.1 % (11.5-14.0); SEGMENTED NEUTROPHILS % (AUTO) 60.2 % (42-78); TOTAL CELLS COUNTED % (AUTO) 100 %; WHITE BLOOD COUNT 3.9 10^3/uL (4.0-10.5)
[2019-04-26 01:45] LABS: HEMOGLOBIN 10.2 g/dL (12.0-15.5)
[2019-04-26] MEDS: HYDROMORPHONE HCL INJ/PF 2 MG/ML AMPULE IV PRN ×5 (03:29→21:44)
[2019-04-26] MEDS: NORMAL SALINE 1000 ML 1,000 ML IV PRN ×2 (03:30→11:58)
--- NOTE | 2019-04-26 08:28 | PDOC PROGRESS REPORT ---
Subjective Progress Note for:: 04/26/19 Subjective:: Patient states that she is feeling much better today. Her migraine has gone. She still has some abdominal pain, for which she took dilaudid. Her nausea has improved. She has a clear liquid diet for breakfast and has been keeping down some fluids. She now also states that she has had severe vomiting with benadryl, MRI contrast, Doxil, and other medications. Reason For Visit: HEMATEMESIS,OVARIAN CANCER,HYPOKALEMIA,TACHYCARDIA Physical Exam Vital Signs: Temp Pulse Resp BP Pulse Ox 98.5 F 81 16 125/86 H 98 04/26/19 05:18 04/26/19 07:00 04/26/19 05:18 04/26/19 05:18 04/26/19 05:18 Intake & Output 04/25/19 04/26/19 04/27/19 06:59 06:59 06:59 Intake Total 3065 3788 Balance 3065 3788 Weight 68.8 kg 68.5 kg General appearance: PRESENT: well-developed, well-nourished Head exam: PRESENT: normocephalic Eye exam: PRESENT: EOMI Respiratory exam: PRESENT: unlabored Extremities exam: ABSENT: pedal edema Musculoskeletal exam: PRESENT: ambulatory Neurological exam: PRESENT: alert, awake, oriented to person, oriented to place, oriented to time, oriented to situation Psychiatric exam: PRESENT: appropriate affect Skin exam: PRESENT: normal color Results Laboratory Results: 04/26/19 00:40 04/25/19 05:45 04/24/19 04/25/19 04/26/19 09:20 05:45 00:40 WBC 3.9 L RBC 3.51 L Hgb 10.2 L D Hct 29.7 L MCV 85 MCH 29.2 MCHC 34.4 RDW 17.1 H Plt Count 219 Seg Neutrophils % 60.2 Sodium 138.4 Potassium 4.3 Chloride 107 Carbon Dioxide 27 Anion Gap 4 L BUN 10 Creatinine 0.47 L Est GFR ( Amer) > 60 Glucose 88 Calcium 8.1 L Magnesium 1.8 Total Bilirubin 0.3 AST 18 Alkaline Phosphatase 44 Total Protein 5.2 L Albumin 2.7 L Prealbumin 8.4 L Blood Type O POSITIVE Antibody Screen NEGATIVE Impressions: Acute Abdomen Series 04/24/19 11:15 IMPRESSION: NO RADIOGRAPHIC EVIDENCE FOR ACUTE ABDOMINAL DISEASE. Assessment & Plan - Diagnosis (1) Abdominal pain Qualifiers: Abdominal location: upper abdomen, unspecified Qualified Code(s): R10.10 - Upper abdominal pain, unspecified Is this a current diagnosis for this admission?: Yes Plan: Most likely from the gastric mass. She has known metastatic ovarian cancer, so it is most likely that this is still a part of the underlying process. recommen dation is to repeat EGD in about 6 weeks. (2) Anemia Qualifiers: Anemia type: other cause Other causes of anemia: chronic disease, neoplastic Qualified Code(s): D63.0 - Anemia in neoplastic disease Is this a current diagnosis for this admission?: Yes Plan: Due to chemo and bleeding. HGB now stable after blood transfusion. Will continue to monitor. (3) Chemotherapy induced nausea and vomiting Is this a current diagnosis for this admission?: Yes Plan: This has improved. She is due for chemo again tomorrow, but this will be held until she is outpatient. (4) Disseminated ovarian cancer Qualifiers: Laterality: unspecified laterality Qualified Code(s): C56.9 - Malignant neoplasm of unspecified ovary Is this a current diagnosis for this admission?: Yes Plan: Topotecan on hold for now. We discussed the fact that I do not believe surgery to remove the mass in the stomach is a good idea. I would like to continue plans for topotecan. (5) Headache Is this a current diagnosis for this admission?: Yes Plan: Await MRI report. She is allergic to contrast, so this will not be given. - Time Time Spent with patient: 15-24 minutes
[2019-04-26] MEDS: PANTOPRAZOLE SODIUM 40 MG VIAL IV SCH ×2 (09:33→21:40)
--- NOTE | 2019-04-26 10:08 | RADIOLOGY REPORT (SQ) ---
EXAM DESCRIPTION: MRI HEAD WITHOUT COMPLETED DATE/TIME: 04/26/2019 9:37 am REASON FOR STUDY: headache in pt with met cancer COMPARISON: None. TECHNIQUE: Multiplanar imaging includes non-contrasted T1, T2, FLAIR, and diffusion with ADC map seq uences. Images stored on PACS. LIMITATIONS: None. FINDINGS: ANATOMY: No anomalies. Normal vascular flow voids. Pituitary fossa normal. CSF SPACES: Normal in size and contour. No hemorrhage. CEREBRUM: Sulci and gyri normal in size and contour. Normal white matter signal on FLAIR imaging. No evidence of hemorrhage, mass, or extraaxial fluid collection. POSTERIOR FOSSA: Vague area of increased FLAIR and T2 signal in the left side of the cerebellum. Go measures approximately 1 x 2 cm. No hemorrhage. Internal auditory canals, cerebello-pontine angles, m astoids normal. DIFFUSION IMAGING: Negative for acute or sub-acute infarction. ORBITS: No masses. Globes normal. PARANASAL SINUSES: No fluid levels. Mucosa normal. OTHER: No other significant finding. IMPRESSION: VAGUE AREA OF ABNORMAL SIGNAL IN THE LEFT SIDE OF THE CEREBELLUM. DIFFICULT TO EVALUATE WITHOUT INTRAVENOUS CONTRAST. SUSPECT THAT THIS IS DUE TO A METASTASIS ALTHOUGH OTHER ETIOLOGIES CA NNOT BE EXCLUDED. SINCE GADOLINIUM CONTRAST IS CONTRAINDICATED DUE TO ALLERGY, MAY CONSIDER CT OF TH E BRAIN WITH AND WITHOUT CONTRAST TO DETERMINE IF THERE IS AN ENHANCING MASS IN THIS AREA. EVIDENCE OF ACUTE STROKE: NO. TECHNICAL DOCUMENTATION: JOB ID: [id number] 2010 [employer]- All Rights Reserved Reading location - IP/workstation name: [email or web address]
--- NOTE | 2019-04-26 14:53 | RADIOLOGY REPORT (SQ) ---
EXAM DESCRIPTION: CT HEAD COMBO COMPLETED DATE/TIME: 04/26/2019 2:36 pm REASON FOR STUDY: Rule out metastasis. Allergic to gadolinium. COMPARISON: MR dated 04/26/2019. TECHNIQUE: Axial images acquired through the brain without and with intravenous contrast. Images re viewed with bone, brain and subdural windows. Additional sagittal and coronal reconstructions were g enerated. Images stored on PACS. All CT scanners at this facility use dose modulation, iterative reconstruction, and/or weight based d osing when appropriate to reduce radiation dose to as low as reasonably achievable (ALARA). [facility]: Dose Right [facility]: CareDose [facility]: Dose Right [facility]: Teradose 4D [facility]: Zweemie CONTRAST TYPE AND DOSE: contrast/concentration: Isovue 350.00 mg/ml; Total Contrast Delivered: 50.0 ml; Total Saline Delivered: 55.0 ml RENAL FUNCTION: BUN 10 creatinine 0.47. RADIATION DOSE: CT Rad equipment meets quality standard of care and radiation dose reduction techniq ues were employed. CTDIvol: 48.5 - 48.6 mGy. DLP: 1710 mGy-cm.. LIMITATIONS: None. FINDINGS: VENTRICLES: Normal size and contour. CEREBRUM: No masses. No hemorrhage. No midline shift. Normal curiel/white matter differentiation. No ev idence for acute infarction. No enhancing lesions. CEREBELLUM: 8 mm faintly enhancing lesion in the left cerebellar hemisphere. Mild decreased attenuat ion in the adjacent tissue. No hemorrhage. EXTRA-AXIAL SPACES: No fluid collections. No enhancing lesions. ORBITS AND GLOBE: No intra- or extraconal masses. Normal contour of globe without masses. CALVARIUM: No fracture. PARANASAL SINUSES: No fluid or mucosal thickening. SOFT TISSUES: No mass or hematoma. OTHER: No other significant finding. IMPRESSION: 8 MM FAINTLY ENHANCING LESION IN THE LEFT CEREBELLAR HEMISPHERE CONSISTENT WITH A SMALL METASTASIS. THERE IS MILD VASOGENIC EDEMA IN THE ADJACENT TISSUE. EVIDENCE OF ACUTE STROKE: NO. TECHNICAL DOCUMENTATION: JOB ID: [id number] Quality ID # [id number]: Final reports with documentation of one or more dose reduction techniques (e.g., Au tomated exposure control, adjustment of the mA and/or kV according to patient size, use of iterative reconstruction technique) 2010 [employer]- All Rights Reserved Reading location - IP/workstation name: [email or web address]
--- NOTE | 2019-04-26 15:39 | PDOC PROGRESS REPORT ---
Subjective Progress Note for:: 04/26/19 Subjective:: JAYLENE HENDERSON is a 38 year old female who was initially diagnosed with ovarian cancer in 2017. At the time, it was thought to be widespread, metastatic, and incurable. She has been on several different chemotherapy treatments. Most recently, she was started on Topotecan - first dose 04/20/2019. Shortly thereafter, she developed nausea and vomiting. Today, she has had a migraine all day. She was able to eat breakfast, but zofran and phenergan did not help. Dilaudid also only helps for a short time. 04/26/2019. No acute events overnight. Comfortably resting in bed no apparent distress. Abdominal pain has resolved, has not had any hematemesis, p.o. tolerant. Patient had her brain MRI which showed suspicious lesion but unfortunately patient is allergic to IV gadolinium. CT head with contrast is recommended by radiology. Reason For Visit: HEMATEMESIS,OVARIAN CANCER,HYPOKALEMIA,TACHYCARDIA Physical Exam Vital Signs: Temp Pulse Resp BP Pulse Ox 98.4 F 95 16 126/88 H 99 04/26/19 11:50 04/26/19 11:50 04/26/19 11:50 04/26/19 11:50 04/26/19 11:50 Intake & Output 04/25/19 04/26/19 04/27/19 06:59 06:59 06:59 Intake Total 3065 3788 2005 Balance 3065 3788 2005 Weight 68.8 kg 68.5 kg General appearance: PRESENT: no acute distress, well-developed, well-nourished Head exam: PRESENT: atraumatic, normocephalic Respiratory exam: PRESENT: clear to auscultation mike. ABSENT: rales, rhonchi, wheezes Cardiovascular exam: PRESENT: RRR. ABSENT: diastolic murmur, rubs, systolic murmur Neurological exam: PRESENT: alert, awake, oriented to person, oriented to place, oriented to time, oriented to situation, CN II-XII grossly intact. ABSENT: motor sensory deficit Results Laboratory Results: 04/26/19 00:40 04/25/19 05:45 04/24/19 04/26/19 09:20 00:40 WBC 3.9 L RBC 3.51 L Hgb 10.2 L D Hct 29.7 L MCV 85 MCH 29.2 MCHC 34.4 RDW 17.1 H Plt Count 219 Seg Neutrophils % 60.2 Blood Type O POSITIVE Antibody Screen NEGATIVE Impressions: Acute Abdomen Series 04/24/19 11:15 IMPRESSION: NO RADIOGRAPHIC EVIDENCE FOR ACUTE ABDOMINAL DISEASE. Head CT 04/26/19 00:00 IMPRESSION: 8 MM FAINTLY ENHANCING LESION IN THE LEFT CEREBELLAR HEMISPHERE CONSISTENT WITH A SMALL METASTASIS. THERE IS MILD VASOGENIC EDEMA IN THE ADJACENT TISSUE. EVIDENCE OF ACUTE STROKE: NO. Head MRI 04/26/19 00:00 IMPRESSION: VAGUE AREA OF ABNORMAL SIGNAL IN THE LEFT SIDE OF THE CEREBELLUM. DIFFICULT TO EVALUATE WITHOUT INTRAVENOUS CONTRAST. SUSPECT THAT THIS IS DUE TO A METASTASIS ALTHOUGH OTHER ETIOLOGIES CANNOT BE EXCLUDED. SINCE GADOLINIUM CONTRAST IS CONTRAINDICATED DUE TO ALLERGY, MAY CONSIDER CT OF THE BRAIN WITH AND WITHOUT CONTRAST TO DETERMINE IF THERE IS AN ENHANCING MASS IN THIS AREA. EVIDENCE OF ACUTE STROKE: NO. Assessment and Plan - Plan Summary Summary: 04/24/2019 Hematemesis-the patient has had nausea and vomiting recurrently. This is possibly related to the chemotherapy or the diffusely metastatic ovarian cancer in her abdomen and pelvis. She is going to have endoscopy by Dr. Barraza. With the nausea and vomiting it could be a Jackelin-Boyd tear. I have started her on IV Protonix. Abdominal pain-she has abdominal pain chronically due to her metastatic disease. As she is n.p.o., I will use intravenous Dilaudid for pain management. When she is taking food and drink by mouth I will administer oral medications. Hypokalemia-likely due to emesis. I have ordered intravenous potassium and we will monitor her electrolytes. Anemia-likely due to the chemotherapy more than anything. She does state that she has a poor appetite and it could be partly nutritional. It is unlikely that the hematemesis has caused her anemia since her hemoglobin has been low on the last 2 visits to the emergency department. Consider a multivitamin and possible iron supplement once the GI bleeding is diagnosed and treated Tachycardia-she is tachycardic. Some of it might be anxiety but I also think some of it is volume depletion. We will continue to give her IV fluids and monitor her on telemetry. She also states that her appetite is been very poor. She thinks she is losing weight. She struggles to find adequate nutrition. I have ordered a dietitian consult to possibly help with meals and strategies for her nutrition. 04/25/2019 The patient's hemoglobin was 7.0 this morning. 2 units of packed red blood cells were ordered and transfused. The patient has her migraine headache today. She is laying quietly in the room with an ice pack on her forehead. She still complains of abdominal pain. It is not likely that the gastric lesion is causing this but rather the marked tumor burden that she already has. She did say that she wanted to pursue treating this lesion as it is adversely affecting her eating. She is currently on clear liquids due to the friability of the lesion. Hopefully this will prevent recurrent bleeding. The patient is not having any further vomiting or hematemesis. Dr. Calderon is seeing the patient regarding coordinated management with her gynecologic oncologist in [place]. The patient does want to pursue treatment of this lesion but it is not known if she would be a good surgical candidate because of the tumor burden in her abdomen. I will defer to the oncology team to coordinate with surgery regarding treatment of this lesion.
[2019-04-26] MEDS: LORAZEPAM INJ 2 MG/1 ML VIAL IV PRN (21:42)
[2019-04-27] MEDS: HYDROMORPHONE HCL INJ/PF 2 MG/ML AMPULE IV PRN ×3 (05:28→16:46)
[2019-04-27] MEDS: NORMAL SALINE 1000 ML 1,000 ML IV PRN (05:32)
[2019-04-27 06:31] LABS: ABSOLUTE MONOCYTES (AUTO) 0.3 10^3/uL (0.1-1.4); ABSOLUTE NEUT (AUTO) 1.6 10^3/uL (1.7-8.2); BASOPHILS % (AUTO) 0.6 % (0-2); EOSINOPHILS % (AUTO) 1.1 % (0-6); HEMATOCRIT 30.8 % (36.0-47.0); HEMOGLOBIN 10.8 g/dL (12.0-15.5); LYMPHOCYTES % (AUTO) 33.8 % (13-45); MEAN CORPUSCULAR HEMOGLOBIN 29.3 pg (27.0-33.4); MEAN CORPUSCULAR HGB CONC 35.1 g/dL (32.0-36.0); MEAN CORPUSCULAR VOLUME 84 fl (80-97); PLATELET COUNT 198 10^3/uL (150-450); RED BLOOD COUNT 3.68 10^6/uL (3.72-5.28); RED CELL DISTRIBUTION WIDTH 16.9 % (11.5-14.0); SEGMENTED NEUTROPHILS % (AUTO) 54.5 % (42-78); TOTAL CELLS COUNTED % (AUTO) 100 %; WHITE BLOOD COUNT 2.9 10^3/uL (4.0-10.5)
--- NOTE | 2019-04-27 08:38 | PDOC PROGRESS REPORT ---
Subjective Progress Note for:: 04/27/19 Subjective:: Patient is very tearful this morning. She states that she was left all day yesterday without any word as to the results of her brain scans. She is also under stress as her father and brother have been upset with her. She had a small headache yesterday, but she believes this was due to stress. No nausea. Able to tolerate all her clear liquids. Reason For Visit: HEMATEMESIS,OVARIAN CANCER,HYPOKALEMIA,TACHYCARDIA Physical Exam Vital Signs: Temp Pulse Resp BP Pulse Ox 97.8 F 89 16 128/95 H 99 04/26/19 23:17 04/27/19 07:00 04/26/19 23:17 04/26/19 23:17 04/26/19 23:17 Intake & Output 04/26/19 04/27/19 04/28/19 06:59 06:59 06:59 Intake Total 3788 3906 Balance 3788 3906 Weight 68.5 kg 73.1 kg General appearance: PRESENT: well-developed, well-nourished Head exam: PRESENT: normocephalic Respiratory exam: PRESENT: unlabored Neurological exam: PRESENT: alert, awake, oriented to person, oriented to place, oriented to time, oriented to situation Psychiatric exam: PRESENT: anxious Skin exam: PRESENT: normal color Results Laboratory Results: 04/27/19 05:20 04/25/19 05:45 04/27/19 05:20 WBC 2.9 L RBC 3.68 L Hgb 10.8 L Hct 30.8 L MCV 84 MCH 29.3 MCHC 35.1 RDW 16.9 H Plt Count 198 Seg Neutrophils % 54.5 Impressions: Acute Abdomen Series 04/24/19 11:15 IMPRESSION: NO RADIOGRAPHIC EVIDENCE FOR ACUTE ABDOMINAL DISEASE. Head CT 04/26/19 00:00 IMPRESSION: 8 MM FAINTLY ENHANCING LESION IN THE LEFT CEREBELLAR HEMISPHERE CONSISTENT WITH A SMALL METASTASIS. THERE IS MILD VASOGENIC EDEMA IN THE ADJACENT TISSUE. EVIDENCE OF ACUTE STROKE: NO. Head MRI 04/26/19 00:00 IMPRESSION: VAGUE AREA OF ABNORMAL SIGNAL IN THE LEFT SIDE OF THE CEREBELLUM. DIFFICULT TO EVALUATE WITHOUT INTRAVENOUS CONTRAST. SUSPECT THAT THIS IS DUE TO A METASTASIS ALTHOUGH OTHER ETIOLOGIES CANNOT BE EXCLUDED. SINCE GADOLINIUM CONTRAST IS CONTRAINDICATED DUE TO ALLERGY, MAY CONSIDER CT OF THE BRAIN WITH AND WITHOUT CONTRAST TO DETERMINE IF THERE IS AN ENHANCING MASS IN THIS AREA. EVIDENCE OF ACUTE STROKE: NO. Assessment & Plan - Diagnosis (1) Abdominal pain Qualifiers: Abdominal location: upper abdomen, unspecified Qualified Code(s): R10.10 - Upper abdominal pain, unspecified Is this a current diagnosis for this admission?: Yes Plan: Continues. Most likely due to bleeding mass in stomach. (2) Anemia Qualifiers: Anemia type: other cause Other causes of anemia: chronic disease, neoplastic Qualified Code(s): D63.0 - Anemia in neoplastic disease Is this a current diagnosis for this admission?: Yes Plan: No further bleeding. HGB has been stable. (3) Chemotherapy induced nausea and vomiting Is this a current diagnosis for this admission?: Yes Plan: Resolved. Will advance diet and discharge later today if no further nausea. (4) Disseminated ovarian cancer Qualifiers: Laterality: unspecified laterality Qualified Code(s): C56.9 - Malignant neoplasm of unspecified ovary Is this a current diagnosis for this admission?: Yes Plan: I reviewed MRI and CT reports that show possible single metastasis. I will consult Dr. Ro for possible radiation. However, plan is to resume systemic chemotherapy with topotecan HOMER. She is due for a dose today. If no XRT planned, may give this dose tomorrow in office. (5) Headache Is this a current diagnosis for this admission?: Yes Plan: resolved. - Time Time Spent with patient: 15-24 minutes - Plan Summary Plan Summary: Patient was discussed with Jayjay Stover, and I have left a message for Dr. Webb.
[2019-04-27] MEDS: PANTOPRAZOLE SODIUM 40 MG VIAL IV SCH (09:38)
[2019-04-27 17:57] VITALS: BP 116/71
--- NOTE | 2019-05-15 13:51 | PDOC DISCHARGE SUMMARY ---
Impression - Admit/DC Date/PCP Admission Date/Primary Care Provider: 04/24/19 15:31 Discharge Date: 04/27/19 - Discharge Diagnosis (1) Abdominal pain Is this a current diagnosis for this admission?: Yes (2) Anemia Is this a current diagnosis for this admission?: Yes (3) Chemotherapy induced nausea and vomiting Is this a current diagnosis for this admission?: Yes (4) Disseminated ovarian cancer Is this a current diagnosis for this admission?: Yes (5) Headache Is this a current diagnosis for this admission?: Yes - Assessment Summary: 04/24/2019 Hematemesis-the patient has had nausea and vomiting recurrently. This is possibly related to the chemotherapy or the diffusely metastatic ovarian cancer in her abdomen and pelvis. She is going to have endoscopy by Dr. Barraza. With the nausea and vomiting it could be a Jackelin-Boyd tear. I have started her on IV Protonix. Abdominal pain-she has abdominal pain chronically due to her metastatic disease. As she is n.p.o., I will use intravenous Dilaudid for pain management. When she is taking food and drink by mouth I will administer oral medications. Hypokalemia-likely due to emesis. I have ordered intravenous potassium and we will monitor her electrolytes. Anemia-likely due to the chemotherapy more than anything. She does state that she has a poor appetite and it could be partly nutritional. It is unlikely that the hematemesis has caused her anemia since her hemoglobin has been low on the last 2 visits to the emergency department. Consider a multivitamin and possible iron supplement once the GI bleeding is diagnosed and treated Tachycardia-she is tachycardic. Some of it might be anxiety but I also think some of it is volume depletion. We will continue to give her IV fluids and monitor her on telemetry. She also states that her appetite is been very poor. She thinks she is losing weight. She struggles to find adequate nutrition. I have ordered a dietitian consult to possibly help with meals and strategies for her nutrition. 04/25/2019 The patient's hemoglobin was 7.0 this morning. 2 units of packed red blood cells were ordered and transfused. The patient has her migraine headache today. She is laying quietly in the room with an ice pack on her forehead. She still complains of abdominal pain. It is not likely that the gastric lesion is causing this but rather the marked tumor burden that she already has. She did say that she wanted to pursue treating this lesion as it is adversely affecting her eating. She is currently on clear liquids due to the friability of the lesion. Hopefully this will prevent recurrent bleeding. The patient is not having any further vomiting or hematemesis. Dr. Calderon is seeing the patient regarding coordinated management with her gynecologic oncologist in [place]. The patient does want to pursue treatment of this lesion but it is not known if she would be a good surgical candidate because of the tumor burden in her abdomen. I will defer to the oncology team to coordinate with surgery regarding treatment of this lesion. - Additional Information Resuscitation Status: Full Code Discharge Diet: As Tolerated Discharge Activity: Activity As Tolerated, Balance Activity w/Rest, Slowly Increase Activity Referrals: ESTEFANIA MUNOZ MD [ACTIVE STAFF] - 05/18/19 1:00 pm Prescriptions: Pantoprazole Sodium 40 mg PO BID 42 Days #84 tablet. [place] Medications: Oxycodone HCl [Roxicodone] 10 mg PO Q4HP PRN 04/24/19 Pantoprazole Sodium 40 mg PO BID 42 Days #84 tablet. 04/27/19 Fentanyl [Duragesic 50 Mcg/Hr Transdermal Patch] 1 each TD Q3D 05/09/19 Ondansetron [Zofran Odt 4 mg Tablet] 4 mg PO Q4HP PRN 05/09/19 Promethazine HCl [Phenergan 25 mg Supp.rect] 1 supp AL Q6HP PRN 05/09/19 Dexamethasone [Decadron 4 Mg Tablet] 4 mg PO ONCE #1 tablet 05/12/19 History of Present Illiness History of Present Illness: JAYLENE HENDERSON is a 38 year old female with a history of diffusely metastatic ovarian cancer. She has been to the emergency department 2 other times in the last 2 weeks. Once was with nausea and vomiting and one was for anxiety and inability to sleep. She just started a new chemotherapy regimen this week. She states that on Thursday and Thursday after the chemo she vomited once or twice each day. Today, however, she vomited up bright red blood. Her father states that occasionally they would see a speck of blood in the emesis but never [place] blood like today. On exam she is not hyper nor hypotensive. She is a little tachycardic. This is likely from volume depletion. She did get 1 L of normal saline. Her hemoglobin was 9.4, her potassium was 3.5 and her renal function is normal. A CT scan performed on April 13, 2019 showed worsening metastatic disease with enlarged cardiophrenic, para-aortic, retroperitoneal and mesenteric adenopathy. I do not believe the patient has had a chance to discuss these results with either of her oncologist. The patient has also been having a lot of abdominal pain. She states that she has had significant difficulty eating. Her appetite is been very poor. She will tend to vomit often with meals. The patient will be admitted to the hospitalist service. We will recheck her h emoglobin and continue to monitor her hemoglobin and hematocrit. She will need repletion of potassium. I will give this intravenous as she is n.p.o. for her gastroscopy. Dr. Barraza will be performing a gastroscopy to try and identify the source of bleeding. Hospital Course Hospital Course: 04/24/2019 Hematemesis-the patient has had nausea and vomiting recurrently. This is possibly related to the chemotherapy or the diffusely metastatic ovarian cancer in her abdomen and pelvis. She is going to have endoscopy by Dr. Barraza. With the nausea and vomiting it could be a Jackelin-Boyd tear. I have started her on IV Protonix. Abdominal pain-she has abdominal pain chronically due to her metastatic disease. As she is n.p.o., I will use intravenous Dilaudid for pain management. When she is taking food and drink by mouth I will administer oral medications. Hypokalemia-likely due to emesis. I have ordered intravenous potassium and we will monitor her electrolytes. Anemia-likely due to the chemotherapy more than anything. She does state that she has a poor appetite and it could be partly nutritional. It is unlikely that the hematemesis has caused her anemia since her hemoglobin has been low on the last 2 visits to the emergency department. Consider a multivitamin and possible iron supplement once the GI bleeding is diagnosed and treated Tachycardia-she is tachycardic. Some of it might be anxiety but I also think some of it is volume depletion. We will continue to give her IV fluids and monitor her on telemetry. She also states that her appetite is been very poor. She thinks she is losing weight. She struggles to find adequate nutrition. I have ordered a dietitian consult to possibly help with meals and strategies for her nutrition. 04/25/2019 The patient's hemoglobin was 7.0 this morning. 2 units of packed red blood cells were ordered and transfused. The patient has her migraine headache today. She is laying quietly in the room with an ice pack on her forehead. She still complains of abdominal pain. It is not likely that the gastric lesion is causing this but rather the marked tumor burden that she already has. She did say that she wanted to pursue treating this lesion as it is adversely affecting her eating. She is currently on clear liquids due to the friability of the lesion. Hopefully this will prevent recurrent bleeding. The patient is not having any further vomiting or hematemesis. Dr. Calderon is seeing the patient regarding coordinated management with her gynecologic oncologist in [place]. The patient does want to pursue treatment of this lesion but it is not known if she would be a good surgical candidate because of the tumor burden in her abdomen. I will defer to the oncology team to coordinate with surgery regarding treatment of this lesion. Physical Exam Vital Signs: Temp Pulse Resp BP Pulse Ox 98.8 F 99 18 116/71 99 04/27/19 19:58 04/27/19 19:58 04/27/19 19:58 04/27/19 19:58 04/27/19 19:58 General appearance: PRESENT: no acute distress, obese, well-developed, well- nourished Respiratory exam: PRESENT: clear to auscultation mike. ABSENT: rales, rhonchi, wheezes Cardiovascular exam: PRESENT: RRR. ABSENT: diastolic murmur, rubs, systolic murmur GI/Abdominal exam: PRESENT: normal bowel sounds, soft. ABSENT: distended, guarding, mass, organolmegaly, rebound, tenderness Extremities exam: PRESENT: full ROM. ABSENT: calf tenderness, clubbing, pedal edema Neurological exam: PRESENT: alert, awake, oriented to person, oriented to place, oriented to time, oriented to situation, CN II-XII grossly intact. ABSENT: motor sensory deficit Results Laboratory Results: WBC 2.9 10^3/uL (4.0-10.5) L 04/27/19 05:20 RBC 3.68 10^6/uL (3.72-5.28) L 04/27/19 05:20 Hgb 10.8 g/dL (12.0-15.5) L 04/27/19 05:20 Hct 30.8 % (36.0-47.0) L 04/27/19 05:20 MCV 84 fl (80-97) 04/27/19 05:20 MCH 29.3 pg (27.0-33.4) 04/27/19 05:20 MCHC 35.1 g/dL (32.0-36.0) 04/27/19 05:20 RDW 16.9 % (11.5-14.0) H 04/27/19 05:20 Plt Count 198 10^3/uL (150-450) 04/27/19 05:20 Lymph % (Auto) 33.8 % (13-45) 04/27/19 05:20 [place] % (Auto) 10.0 % (3-13) 04/27/19 05:20 Eos % (Auto) 1.1 % (0-6) 04/27/19 05:20 Baso % (Auto) 0.6 % (0-2) 04/27/19 05:20 Absolute Neuts (auto) 1.6 10^3/uL (1.7-8.2) L 04/27/19 05:20 Absolute Lymphs (auto) 1.0 10^3/uL (0.5-4.7) 04/27/19 05:20 Absolute Monos (auto) 0.3 10^3/uL (0.1-1.4) 04/27/19 05:20 Absolute Eos (auto) 0.0 10^3/uL (0.0-0.6) 04/27/19 05:20 Absolute Basos (auto) 0.0 10^3/uL (0.0-0.2) 04/27/19 05:20 Seg Neutrophils % 54.5 % (42-78) 04/27/19 05:20 PT 13.8 SEC (11.4-15.4) 04/24/19 09:20 INR 1.06 04/24/19 09:20 Sodium 138.4 mmol/L (137-145) 04/25/19 05:45 Potassium 4.3 mmol/L (3.6-5.0) 04/25/19 05:45 Chloride 107 mmol/L (98-107) 04/25/19 05:45 Carbon Dioxide 27 mmol/L (22-30) 04/25/19 05:45 Anion Gap 4 (5-19) L 04/25/19 05:45 BUN 10 mg/dL (7-20) 04/25/19 05:45 Creatinine 0.47 mg/dL (0.52-1.25) L 04/25/19 05:45 Est GFR ( Amer) > 60 (>60) 04/25/19 05:45 Est GFR (MDRD) Non-Af > 60 (>60) 04/25/19 05:45 Glucose 88 mg/dL (75-110) 04/25/19 05:45 Calcium 8.1 mg/dL (8.4-10.2) L 04/25/19 05:45 Magnesium 1.8 mg/dL (1.6-2.3) 04/25/19 05:45 Total Bilirubin 0.3 mg/dL (0.2-1.3) 04/25/19 05:45 Direct Bilirubin 0.0 mg/dL (0.0-0.4) 04/25/19 05:45 Neonat Total Bilirubin Not Reportable 04/25/19 05:45 Neonat Direct Bilirubin Not Reportable 04/25/19 05:45 Neonat Indirect Bili Not Reportable 04/25/19 05:45 AST 18 U/L (14-36) 04/25/19 05:45 ALT 11 U/L (<35) 04/25/19 05:45 Alkaline Phosphatase 44 U/L (38-126) 04/25/19 05:45 Total Protein 5.2 g/dL (6.3-8.2) L 04/25/19 05:45 Albumin 2.7 g/dL (3.5-5.0) L 04/25/19 05:45 Prealbumin 8.4 mg/dL (17.6-36.0) L 04/25/19 05:45 Urine Color YELLOW 04/24/19 12:06 Urine Appearance SLIGHTLY-CLOUDY 04/24/19 12:06 Urine pH 8.0 (5.0-9.0) 04/24/19 12:06 Ur Specific [place] 1.023 04/24/19 12:06 Urine Protein 100 mg/dL (NEGATIVE) H 04/24/19 12:06 Urine Glucose (UA) NEGATIVE mg/dL (NEGATIVE) 04/24/19 12:06 Urine Ketones 80 mg/dL (NEGATIVE) H 04/24/19 12:06 Urine Blood NEGATIVE (NEGATIVE) 04/24/19 12:06 Urine Nitrite NEGATIVE (NEGATIVE) 04/24/19 12:06 Urine Bilirubin NEGATIVE (NEGATIVE) 04/24/19 12:06 Urine Urobilinogen 4.0 mg/dL (<2.0) H 04/24/19 12:06 Ur Leukocyte Esterase TRACE (NEGATIVE) H 04/24/19 12:06 Urine WBC (Auto) 7 /HPF 04/24/19 12:06 Urine RBC (Auto) 1 /HPF 04/24/19 12:06 Urine Bacteria (Auto) TRACE /HPF 04/24/19 12:06 Squamous Epi Cells Auto 12 /HPF 04/24/19 12:06 Urine Mucus (Auto) MOD /LPF 04/24/19 12:06 Urine Ascorbic Acid 20 (NEGATIVE) H 04/24/19 12:06 Blood Type O POSITIVE 04/24/19 09:20 Blood Type Confirm O POSITIVE 04/24/19 09:20 Antibody Screen NEGATIVE 04/24/19 09:20 Crossmatch See Detail 04/24/19 09:20 Impressions: Acute Abdomen Series 04/24/19 11:15 IMPRESSION: NO RADIOGRAPHIC EVIDENCE FOR ACUTE ABDOMINAL DISEASE. Head CT 04/26/19 00:00 IMPRESSION: 8 MM FAINTLY ENHANCING LESION IN THE LEFT CEREBELLAR HEMISPHERE CONSISTENT WITH A SMALL METASTASIS. THERE IS MILD VASOGENIC EDEMA IN THE ADJACENT TISSUE. EVIDENCE OF ACUTE STROKE: NO. Head MRI 04/26/19 00:00 IMPRESSION: VAGUE AREA OF ABNORMAL SIGNAL IN THE LEFT SIDE OF THE CEREBELLUM. DIFFICULT TO EVALUATE WITHOUT INTRAVENOUS CONTRAST. SUSPECT THAT THIS IS DUE TO A METASTASIS ALTHOUGH OTHER ETIOLOGIES CANNOT BE EXCLUDED. SINCE GADOLINIUM CONTRAST IS CONTRAINDICATED DUE TO ALLERGY, MAY CONSIDER CT OF THE BRAIN WITH AND WITHOUT CONTRAST TO DETERMINE IF THERE IS AN ENHANCING MASS IN THIS AREA. EVIDENCE OF ACUTE STROKE: NO. Stroke Is this a Stroke Patient?: No Acute Heart Failure - Is this a Heart Failure Patient?: No
== END 2019-04-27 19:58 | disposition home or self-care (01) | DRG 375 ==
LOC: ER 08:28 → EH 15:31 → 4N 19:10
PROVIDERS: ADMIT Hospitalist; ATTEND Hospitalist
PROC: 3E0G8GC Introduction of Other Therapeutic Substance into Upper GI, Via Natural or Artificial Opening Endoscopic (ICD-10-PCS; 2019-04-24)
PROC: 0W3P8ZZ Control Bleeding in Gastrointestinal Tract, Via Natural or Artificial Opening Endoscopic (ICD-10-PCS; principal; 2019-04-24 15:54)
PROC: 30233N1 Transfusion of Nonautologous Red Blood Cells into Peripheral Vein, Percutaneous Approach (ICD-10-PCS; 2019-04-25)
DX: C78.89 Secondary malignant neoplasm of other digestive organs (principal); K92.0 Hematemesis; C56.9 Malignant neoplasm of unspecified ovary; C79.89 Secondary malignant neoplasm of other specified sites; C79.31 Secondary malignant neoplasm of brain; E86.9 Volume depletion, unspecified; D63.0 Anemia in neoplastic disease; G89.3 Neoplasm related pain (acute) (chronic); I10 Essential (primary) hypertension; G43.909 Migraine, unspecified, not intractable, without status migrainosus; N39.3 Stress incontinence (female) (male); T45.1X5A Adverse effect of antineoplastic and immunosuppressive drugs, initial encounter; E87.6 Hypokalemia; D50.0 Iron deficiency anemia secondary to blood loss (chronic); F41.9 Anxiety disorder, unspecified; F12.90 Cannabis use, unspecified, uncomplicated; R00.0 Tachycardia, unspecified; Z88.0 Allergy status to penicillin; Z88.2 Allergy status to sulfonamides; Z88.8 Allergy status to other drugs, medicaments and biological substances; Z80.8 Family history of malignant neoplasm of other organs or systems; G47.9 Sleep disorder, unspecified
CPT/HCPCS: 36415; 36430; 43236; 70470; 70551; 74022; 80053; 81001; 83735; 84134; 85025; 85610; 86850; 86900; 86901; 86920; 96361; 96374; 96375; 96376; 99285; C9113; J0171; J1170; J1200; J1610; J1642; J2060; J2250; J2270; J2310; J2405; J2550; J3010; J3480; J3490; J7030; P9016

== ENCOUNTER 2019-05-08 13:16 | Inpatient (IN) | payer BC ==
--- NOTE | 2019-05-08 13:26 | ER Document Report ---
ED Medical Screen (RME) - General Stated Complaint: VOMITING BLOOD/WEAKNESS Time Seen by Provider: 05/08/19 13:20 Mode of Arrival: Wheelchair Information source: Patient Notes: 38-year-old female with history of ovarian cancer recently started radiation because they found a mass in her stomach presents to the emergency department for abdominal pain, vomiting up blood. She reports she is vomited multiple times probably a cup at a time. She reports her last hemoglobin was done on and she believes it was 10.4. She also reports she feels dizzy. Cannot remember when her last bowel movement was because she has not been able to eat. I have greeted and performed a rapid initial assessment of this patient. A comprehensive ED assessment and evaluation of the patient, analysis of test results and completion of the medical decision making process will be conducted by additional ED providers. TRAVEL OUTSIDE OF THE [place] IN LAST 30 DAYS: No - Related Data Allergies/Adverse Reactions: Penicillins Allergy (Severe, Verified 05/08/19 13:24) stop breathing, hives Sulfa (Sulfonamide Antibiotics) Allergy (Severe, Verified 05/08/19 13:24) Hives diphenhydramine [From Benadryl] Adverse Reaction (Severe, Verified 05/08/19 13:24) Anxiety Past Medical History - Social History Chew tobacco use (# tins/day): No Frequency of alcohol use: None Drug Abuse: None - Past Medical History Cardiac Medical History: Reports: Hx Hypertension Denies: Hx Coronary Artery Disease, Hx Heart Attack Pulmonary Medical History: Denies: Hx Asthma, Hx Bronchitis, Hx COPD, Hx Pneumonia Neurological Medical History: Denies: Hx Cerebrovascular Accident, Hx Seizures Renal/ Medical History: Denies: Hx Peritoneal Dialysis Malignancy Medical History: Reports: Hx Ovarian Cancer Musculoskeltal Medical History: Denies Hx Arthritis Psychiatric Medical History: Denies: Hx Depression Past Surgical History: Reports: Hx Gynecologic Surgery - LEEP, Hx Herniorrhaphy, Hx Hysterectomy - Immunizations Immunizations up to date: Yes Hx Diphtheria, Pertussis, Tetanus Vaccination: No - Unsure Physical Exam - Vital signs Vitals: Pulse Resp BP Pulse Ox 137 H 18 133/89 H 98 05/08/19 13:20 05/08/19 13:20 05/08/19 13:20 05/08/19 13:20 Course - Vital Signs Vital signs: Temp Pulse Resp BP Pulse Ox 137 H 18 133/89 H 98 05/08/19 13:20 05/08/19 13:20 05/08/19 13:20 05/08/19 13:20
[2019-05-08] MEDS ORDERED: METOCLOPRAMIDE HCL INJ/PF 10 MG/2 ML SDV IV ONE (13:27)
[2019-05-08] MEDS ORDERED: LORAZEPAM INJ 2 MG/1 ML VIAL IV ONE (14:01)
[2019-05-08] MEDS ORDERED: PANTOPRAZOLE SODIUM 40 MG VIAL IV ONE (14:01)
[2019-05-08] MEDS ORDERED: NORMAL SALINE 1000 ML 1,000 ML IV ONE (14:07)
--- NOTE | 2019-05-08 14:07 | ER Document Report ---
ED General - General Chief Complaint: Vomiting Stated Complaint: VOMITING BLOOD/WEAKNESS Time Seen by Provider: 05/08/19 13:20 Mode of Arrival: Wheelchair TRAVEL OUTSIDE OF THE [place] IN LAST 30 DAYS: No - HPI Notes: Patient is a 38-year-old female with a history of diffusely metastatic ovarian cancer presents complaining of having hematemesis for the past couple days with nausea and vomiting associated. She did have radiation this past . Patient was seen a couple weeks ago and admitted to the hospital for hematemesis that he noted a gastric tumor that had been bleeding and was ablated by general surgery. Patient did require blood during that stay for low hemoglobin. Patient states that she is feeling dizzy, weak, lightheaded, and dehydrated. She has not been able to eat or drink anything recently. Patient states that her last episode of hematemesis was in our lobby. Patient is a full code currently. Denies any headache, fever, neck pain, changes in vi elias/speech/mentation/hearing, URI, sore throat, chest pain, palpitations, syncope, cough, shortness of breath, wheeze, dyspnea, urinary retention, dysuria, hematuria, or rash. - Related Data Allergies/Adverse Reactions: Penicillins Allergy (Severe, Verified 05/08/19 13:24) stop breathing, hives Sulfa (Sulfonamide Antibiotics) Allergy (Severe, Verified 05/08/19 13:24) Hives diphenhydramine [From Benadryl] Adverse Reaction (Severe, Verified 05/08/19 13 :24) Anxiety Past Medical History - General Information source: Patient - Social History Smoking Status: Never Smoker Chew tobacco use (# tins/day): No Frequency of alcohol use: None Drug Abuse: None Family History: CAD, Malignancy - Mother from liver cancer. Patient has suicidal ideation: No Patient has homicidal ideation: No - Past Medical History Cardiac Medical History: Reports: Hx Hypertension Denies: Hx Coronary Artery Disease, Hx Heart Attack Pulmonary Medical History: Denies: Hx Asthma, Hx Bronchitis, Hx COPD, Hx Pneumonia Neurological Medical History: Denies: Hx Cerebrovascular Accident, Hx Seizures Renal/ Medical History: Denies: Hx Peritoneal Dialysis Malignancy Medical History: Reports: Hx Ovarian Cancer Musculoskeletal Medical History: Denies Hx Arthritis Psychiatric Medical History: Denies: Hx Depression Past Surgical History: Reports: Hx Gynecologic Surgery - LEEP, Hx Herniorrhaphy, Hx Hysterectomy - Immunizations Immunizations up to date: Yes Hx Diphtheria, Pertussis, Tetanus Vaccination: No - Unsure Review of Systems - Review of Systems -: Yes All other systems reviewed and negative Physical Exam - Vital signs Vitals: Pulse Resp BP Pulse Ox 137 H 18 133/89 H 98 05/08/19 13:20 05/08/19 13:20 05/08/19 13:20 05/08/19 13:20 - Notes Notes: PHYSICAL EXAMINATION: GENERAL: Well-appearing, well-nourished and in no acute distress. HEAD: Atraumatic, normocephalic. EYES: Pupils equal round and reactive to light, extraocular movements intact, sclera anicteric, conjunctiva are normal. ENT: Nares patent and without discharge. oropharynx clear without exudates. No tonsilar hypertrophy or erythema. Moist mucous membranes. NECK: Normal range of motion, supple without lymphadenopathy LUNGS: Breath sounds clear to auscultation bilaterally and equal. No wheezes rales or rhonchi. HEART: Regular rate and rhythm without murmurs, rubs, gallops. ABDOMEN: Soft, nondistended abdomen. No guarding, no rebound. Normal bowel sounds present. No CVA tenderness bilaterally. + generalized tenderness. Musculoskeletal: FROM to passive/active. Strength 5+/5. Extremities: No cyanosis, clubbing, or edema b/l. Peripheral pulses 2+. Capillary refill less than 3 seconds. NEUROLOGICAL: Cranial nerves grossly intact. Normal speech, normal gait. PSYCH: Normal mood, normal affect. SKIN: Warm, Dry, normal turgor, no rashes or lesions noted. Course - Re-evaluation Re-evalutation: 05/08/19 15:52 Pt's hemoglobin is 7.3. No neutropenia. Pt is mildly tachycardic at 110 currently on the monitor. 2 units ordered. I did review with Dr. Francisco. The radiation therapy performed should help stop the bleeding overall. We will discuss with hospitalist/surgeon for admission. 05/08/19 15:55 Surgeon, Dr. Stewart, will not perform any procedure on this patient and recommends hospice consult. We will wait for her CMP to result and contact hospitalist for admission. 05/08/19 16:10 I did speak with Dr. Krause, hospitalist, who accepted pt for admit to [facility]. Patient is otherwise an afebrile 38-year-old female who presents with disseminated ovarian cancer and hematemesis with nausea/vomiting that is suspect be secondary to the gastric mass. I did order for 2 units of blood to be given. Patient does not have any neutropenia at this time. No further work-up warranted at this time. Patient will be admitted. - Vital Signs Vital signs: Temp Pulse Resp BP Pulse Ox 137 H 35 H 112/78 95 05/08/19 13:20 05/08/19 15:34 05/08/19 15:34 05/08/19 15:34 - Laboratory Result Diagrams: 05/08/19 15:05 05/08/19 15:05 Laboratory results interpreted by me: 05/08/19 05/08/19 05/08/19 15:05 15:05 15:05 RBC 2.53 L Hgb 7.3 L Hct 22.2 L RDW 19.6 H Plt Count 470 H Lymph % (Auto) 7.2 L [place] % (Auto) 15.1 H Absolute Lymphs (auto) 0.3 L Potassium 3.4 L Chloride 95 L Carbon Dioxide 31 H Creatinine 0.47 L Glucose 129 H Crossmatch See Detail Discharge - Discharge Clinical Impression: Hematemesis Qualifiers: Nausea presence: with nausea Qualified Code(s): K92.0 - Hematemesis Disseminated ovarian cancer Qualifiers: Laterality: unspecified laterality Qualified Code(s): C56.9 - Malignant neoplasm of unspecified ovary Condition: Stable Disposition: ADMITTED INPATIENT Admitting Provider: Jimi (Hospitalist) Unit Admitted: Telemetry
[2019-05-08] MEDS: PANTOPRAZOLE SODIUM 40 MG VIAL IV PRN (15:21)
[2019-05-08 15:38] LABS: ABSOLUTE LYMPHOCYTES (AUTO) 0.3 10^3/uL (0.5-4.7); ABSOLUTE MONOCYTES (AUTO) 0.6 10^3/uL (0.1-1.4); ABSOLUTE NEUT (AUTO) 3.1 10^3/uL (1.7-8.2); BASOPHILS % (AUTO) 0.4 % (0-2); EOSINOPHILS % (AUTO) 0.2 % (0-6); HEMATOCRIT 22.2 % (36.0-47.0); LYMPHOCYTES % (AUTO) 7.2 % (13-45); MONOCYTES % (AUTO) 15.1 % (3-13); PLATELET COUNT 470 10^3/uL (150-450); RED BLOOD COUNT 2.53 10^6/uL (3.72-5.28); RED CELL DISTRIBUTION WIDTH 19.6 % (11.5-14.0); SEGMENTED NEUTROPHILS % (AUTO) 77.1 % (42-78); TOTAL CELLS COUNTED % (AUTO) 100 %
[2019-05-08 15:41] LABS: HEMOGLOBIN 7.3 g/dL (12.0-15.5)
[2019-05-08 15:47] LABS: MEAN CORPUSCULAR VOLUME 88 fl (80-97)
[2019-05-08] MEDS ORDERED: NORMAL SALINE 250 ML IV PRN (15:51)
[2019-05-08 16:00] LABS: ALBUMIN 3.8 g/dL (3.5-5.0); ALKALINE PHOSPHATASE 61 U/L (38-126); ANION GAP 12 (5-19); ASPARTATE AMINO TRANSFERASE 18 U/L (14-36); BILIRUBIN,DIRECT 0.1 mg/dL (0.0-0.4); BILIRUBIN,TOTAL 0.6 mg/dL (0.2-1.3); BLOOD UREA NITROGEN 14 mg/dL (7-20); CALCIUM 9.1 mg/dL (8.4-10.2); CARBON DIOXIDE 31 mmol/L (22-30); CHLORIDE 95 mmol/L (98-107); GLUCOSE 129 mg/dL (75-110); POTASSIUM 3.4 mmol/L (3.6-5.0); TOTAL PROTEIN 6.9 g/dL (6.3-8.2)
[2019-05-08] MEDS ORDERED: ZOLPIDEM TARTRATE 5 MG TABLET PO PRN (16:37)
[2019-05-08] MEDS ORDERED: IPRATROPIUM/ALBUTEROL 0.5-2.5 MG/3 ML AMPUL NEB PRN (16:37)
[2019-05-08] MEDS ORDERED: ACETAMINOPHEN 325 MG TABLET PO PRN (16:37)
[2019-05-08] MEDS ORDERED: MAGNESIUM HYDROXIDE SUSP 30 ML UDCUP PO PRN (16:37)
--- NOTE | 2019-05-08 17:41 | PDOC H&P ---
History of Present Illness Admission Date/PCP: 05/08/19 16:21 History of Present Illness: JAYLENE HENDERSON is a 38 year old female This unfortunate 38-year-old female with diffuse metastatic ovarian cancer presents emergency room with complaints of hematemesis for the Last couple of days. She said he had been progressively getting worse. It is also associated with nausea and vomiting. She has been on radiation therapy. She was here a few weeks ago with the same complaints. She had an EGD done at the time and she was noted to have a bleeding gastric cancer that was apparently ablated by general surgery. She was transfused also at the time. She currently denies any chest pain, fever or cough. She is feeling somewhat better since being in the emergency room. Patient remains a full code Past Medical History Cardiac Medical History: Reports: Hypertension Denies: Coronary Artery Disease, Myocardial Infarction Pulmonary Medical History: Denies: Asthma, Bronchitis, Chronic Obstructive Pulmonary Disease (COPD), Pneumonia Neurological Medical History: Denies: Seizures Malignancy Medical History: Reports: Ovarian Cancer Musculoskeltal Medical History: Denies: Arthritis Psychiatric Medical History: Denies: Depression Hematology: Reports: Anemia Past Surgical History Past Surgical History: Reports: Herniorrhaphy, Hysterectomy Social History Information Source: Patient Smoking Status: Never Smoker Electronic Cigarette use?: No Frequency of Alcohol Use: None Hx Recreational Drug Use: Yes Drugs: Marijuana Hx Prescription Drug Abuse: No - Advance Directive Resuscitation Status: Full Code Family History Family History: CAD, Malignancy - Mother from liver cancer. Parental Family History Reviewed: Yes Children Family History Reviewed: Yes Sibling(s) Family History Reviewed.: Yes Medication/Allergy Home Medications: Ascorbic Acid [Vitamin C] 1,000 mg PO DAILY 04/24/19 Lorazepam [Ativan 1 mg Tablet] 1 mg PO BIDP PRN 04/24/19 Morphine Sulfate [Morphine Sulfate ER] 30 mg PO BID 04/24/19 Multivitamin [Chewable-Blayne] 2 each PO DAILY 04/24/19 Oxycodone HCl [Roxicodone] 5 mg PO Q4HP PRN 04/24/19 RX: Pantoprazole Sodium 40 mg PO BID 42 Days #84 tablet. 04/27/19 Allergies/Adverse Reactions: Penicillins Allergy (Severe, Verified 05/08/19 13:24) stop breathing, hives Sulfa (Sulfonamide Antibiotics) Allergy (Severe, Verified 05/08/19 13:24) Hives diphenhydramine [From Benadryl] Adverse Reaction (Severe, Verified 05/08/19 13:24) Anxiety Review of Systems All systems: reviewed and no additional remarkable complaints except as stated Constitutional: PRESENT: fatigue. ABSENT: chills, fever(s), weakness Respiratory: ABSENT: cough, dyspnea, hemoptysis Gastrointestinal: PRESENT: hematemesis, nausea, vomiting Psychiatric: ABSENT: anxiety Physical Exam Vital Signs: Temp Pulse Resp BP Pulse Ox 98.1 F 109 H 38 H 111/82 99 05/08/19 17:20 05/08/19 17:20 05/08/19 17:20 05/08/19 17:01 05/08/19 17:20 Intake & Output 05/07/19 05/08/19 05/09/19 05:59 06:59 06:59 Intake Total 1000 Balance 1000 Weight 71.214 kg General appearance: PRESENT: no acute distress, well-developed, well-nourished Head exam: PRESENT: atraumatic, normocephalic Eye exam: PRESENT: conjunctiva pale, EOMI, PERRLA. ABSENT: scleral icterus Mouth exam: PRESENT: moist, tongue midline Neck exam: ABSENT: carotid bruit, JVD, lymphadenopathy, thyromegaly Respiratory exam: PRESENT: clear to auscultation mike. ABSENT: rales, rhonchi, wheezes Cardiovascular exam: PRESENT: RRR. ABSENT: diastolic murmur, rubs, systolic murmur Pulses: PRESENT: normal dorsalis pedis pul Vascular exam: PRESENT: normal capillary refill GI/Abdominal exam: PRESENT: normal bowel sounds, soft, tenderness. ABSENT: distended, guarding, mass, organolmegaly, rebound Rectal exam: PRESENT: deferred Extremities exam: PRESENT: full ROM. ABSENT: calf tenderness, clubbing, pedal edema Neurological exam: PRESENT: alert, awake, oriented to person, oriented to place, oriented to time, oriented to situation, CN II-XII grossly intact. ABSENT: motor sensory deficit Psychiatric exam: PRESENT: appropriate affect, normal mood. ABSENT: homicidal ideation, suicidal ideation Skin exam: PRESENT: dry, intact, warm. ABSENT: cyanosis, rash Results Laboratory Results: 05/08/19 15:05 05/08/19 15:05 05/08/19 05/08/19 05/08/19 15:05 15:05 15:05 WBC 4.0 RBC 2.53 L Hgb 7.3 L Hct 22.2 L MCV 88 D MCH 29.0 MCHC 33.0 RDW 19.6 H Plt Count 470 H Seg Neutrophils % 77.1 Sodium 137.5 Potassium 3.4 L Chloride 95 L Carbon Dioxide 31 H Anion Gap 12 BUN 14 Creatinine 0.47 L Est GFR ( Amer) > 60 Glucose 129 H Calcium 9.1 Total Bilirubin 0.6 AST 18 Alkaline Phosphatase 61 Total Protein 6.9 Albumin 3.8 Lipase 26.1 Blood Type O POSITIVE Antibody Screen NEGATIVE Assessment and Plan - Diagnosis (1) Upper GI bleed Is this a current diagnosis for this admission?: Yes Plan: EGD done on April 24, 2019 revealed active bleeding from endoluminal mass in the gastric antrum. Hemoglobin today is found to be 7.3. Patient is to be transfused 2 units of packed red blood cells. Unfortunately she is running out of options very fast and at this point no further EGD interventions planned. She will be placed on PPI. (2) Primary cancer of ovary with widespread metastatic disease Is this a current diagnosis for this admission?: Yes (3) Patient is full code Is this a current diagnosis for this admission?: Yes Plan: She remains a full code (4) Hematemesis Qualifiers: Nausea presence: with nausea Qualified Code(s): K92.0 - Hematemesis Is this a current diagnosis for this admission?: Yes (5) Acute blood loss anemia Is this a current diagnosis for this admission?: Yes Plan: Possibly secondary to gastric infiltration, malignancy - Plan Summary Summary: Will transfuse and monitor H&H - Time Time Spent with patient: 35 or more minutes Medications reviewed and adjusted accordingly: Yes Anticipated discharge: Home Within: within 48 hours
[2019-05-08] MEDS ORDERED: FENTANYL 50 MCG/HR PATCH.TD72 TD SCH ×2 (20:00→21:00)
[2019-05-08] MEDS ORDERED: LORAZEPAM INJ 2 MG/1 ML VIAL IV PRN (20:00)
[2019-05-08] MEDS: ONDANSETRON HCL INJ/PF 4 MG/2 ML SDV IV PRN (20:27)
[2019-05-08] MEDS: HYDROMORPHONE HCL INJ/PF 2 MG/ML AMPULE IV PRN (21:55)
[2019-05-08] MEDS: FAMOTIDINE INJ/PF 20 MG/2 ML SDV IV SCH (21:59)
[2019-05-08] MEDS: PROMETHAZINE HCL INJ 25 MG/1 ML VIAL IV PRN (22:01)
[2019-05-09] MEDS: OXYCODONE-ACETAMINOPHEN 5-325 MG TABLET PO PRN ×3 (00:24→16:29)
[2019-05-09] MEDS: ONDANSETRON HCL INJ/PF 4 MG/2 ML SDV IV PRN (00:40)
[2019-05-09 01:06] LABS: APPEARANCE,URINE SLIGHTLY-CLOUDY; BILIRUBIN,URINE NEGATIVE (NEGATIVE); COLOR,URINE AMBER; GLUCOSE, URINE NEGATIVE (NEGATIVE); KETONES,URINE 80 mg/dL (NEGATIVE); PROTEIN,URINE 100 mg/dL (NEGATIVE); URINE SPECIFIC GRAVITY 1.031
[2019-05-09] MEDS: HYDROMORPHONE HCL INJ/PF 2 MG/ML AMPULE IV PRN ×2 (02:07→09:23)
[2019-05-09] MEDS: PANTOPRAZOLE SODIUM 40 MG VIAL IV PRN (04:30)
[2019-05-09] MEDS: PROMETHAZINE HCL INJ 25 MG/1 ML VIAL IV PRN ×3 (05:05→14:11)
[2019-05-09 06:02] LABS: HEMATOCRIT 23.3 % (36.0-47.0); HEMOGLOBIN 8.1 g/dL (12.0-15.5); MEAN CORPUSCULAR HEMOGLOBIN 29.9 pg (27.0-33.4); MEAN CORPUSCULAR HGB CONC 34.6 g/dL (32.0-36.0); MEAN CORPUSCULAR VOLUME 86 fl (80-97); PLATELET COUNT 304 10^3/uL (150-450); RED CELL DISTRIBUTION WIDTH 17.5 % (11.5-14.0)
[2019-05-09 06:11] LABS: ANION GAP 6 (5-19); BLOOD UREA NITROGEN 10 mg/dL (7-20); CALCIUM 7.7 mg/dL (8.4-10.2); CARBON DIOXIDE 30 mmol/L (22-30); CHLORIDE 100 mmol/L (98-107); GLUCOSE 85 mg/dL (75-110); POTASSIUM 3.3 mmol/L (3.6-5.0)
[2019-05-09] MEDS ORDERED: POTASSIUM CHLORIDE 10 MEQ TABLET.ER PO ONE (08:29)
[2019-05-09] MEDS: FAMOTIDINE INJ/PF 20 MG/2 ML SDV IV SCH (09:21)
[2019-05-09] MEDS ORDERED: DOCUSATE SODIUM 100 MG CAPSULE PO SCH (10:00)
[2019-05-09 12:07] LABS: HEMATOCRIT 26.9 % (36.0-47.0); HEMOGLOBIN 9.2 g/dL (12.0-15.5); MEAN CORPUSCULAR HEMOGLOBIN 29.3 pg (27.0-33.4); MEAN CORPUSCULAR HGB CONC 34.3 g/dL (32.0-36.0); MEAN CORPUSCULAR VOLUME 85 fl (80-97); PLATELET COUNT 344 10^3/uL (150-450); RED BLOOD COUNT 3.15 10^6/uL (3.72-5.28); WHITE BLOOD COUNT 3.5 10^3/uL (4.0-10.5)
--- NOTE | 2019-05-09 14:40 | PDOC DISCHARGE SUMMARY ---
Impression - Admit/DC Date/PCP Admission Date/Primary Care Provider: 05/08/19 16:21 Discharge Date: 05/09/19 - Discharge Diagnosis (1) Upper GI bleed Is this a current diagnosis for this admission?: Yes (2) Primary cancer of ovary with widespread metastatic disease Is this a current diagnosis for this admission?: Yes (3) Patient is full code Is this a current diagnosis for this admission?: Yes (4) Hematemesis Is this a current diagnosis for this admission?: Yes (5) Acute blood loss anemia Is this a current diagnosis for this admission?: Yes - Additional Information Resuscitation Status: Full Code Discharge Diet: Regular Discharge Activity: Activity As Tolerated Home Medications: Morphine Sulfate [Morphine Sulfate ER] 30 mg PO BID 04/24/19 Oxycodone HCl [Roxicodone] 10 mg PO Q4HP PRN 04/24/19 Pantoprazole Sodium 40 mg PO BID 42 Days #84 tablet. 04/27/19 Famotidine/Pf [Pepcid Inj/Pf 20 mg/2 ml Sdv] 20 mg IV Q12 vial 05/09/19 Fentanyl [Duragesic 50 Mcg/Hr Transdermal Patch] 1 each TD Q3D 05/09/19 Ondansetron [Zofran Odt 4 mg Tablet] 4 mg PO Q4HP PRN 05/09/19 Promethazine HCl [Phenergan 25 mg Supp.rect] 1 supp AK Q6HP PRN 05/09/19 History of Present Illiness History of Present Illness: JAYLENE HENDERSON is a 38 year old female This unfortunate 38-year-old female with diffuse metastatic ovarian cancer presents emergency room with complaints of hematemesis for the Last couple of days. She said he had been progressively getting worse. It is also associated with nausea and vomiting. She has been on radiation therapy. She was here a few weeks ago with the same complaints. She had an EGD done at the time and she was noted to have a bleeding gastric cancer that was apparently ablated by general surgery. She was transfused also at the time. She currently denies any chest pain, fever or cough. She is feeling somewhat better since being in the emergency room. Patient remains a full code Hospital Course Hospital Course: Patient was admitted on May 07 with acute blood loss anemia. Her hemoglobin was found to be 7.3. Patient has metastatic ovarian cancer. She was recently in the hospital with the same issue and EGD done at that time revealed gastric mass with bleeding. It is presumed at this time that this is also the etiology of her bleeding however no plans for any further invasive testing. She was transfused with 2 units of packed red blood cells. Hemoglobin has stabilized and last hemoglobin this afternoon is 9.2. Patient is hemodynamically stable. Her nausea and vomiting has resolved. At this time with no further interventions being planned she is being discharged home for outpatient follow- up. Unfortunately patient's overall prognosis is very poor. She remains a full code Physical Exam Vital Signs: Temp Pulse Resp BP Pulse Ox 98.1 F 101 H 16 128/85 H 98 05/09/19 11:51 05/09/19 11:51 05/09/19 11:51 05/09/19 11:51 05/09/19 11:51 Intake & Output 05/08/19 05/09/19 05/10/19 06:59 06:59 06:59 Intake Total 1600 240 Output Total 91 Balance 1509 240 Weight 72.4 kg General appearance: PRESENT: no acute distress, well-developed, well-nourished Head exam: PRESENT: atraumatic, normocephalic Eye exam: PRESENT: conjunctiva pink, EOMI, PERRLA. ABSENT: scleral icterus Ear exam: PRESENT: normal external ear exam Mouth exam: PRESENT: moist, tongue midline Neck exam: ABSENT: carotid bruit, JVD, lymphadenopathy, thyromegaly Respiratory exam: PRESENT: clear to auscultation mike. ABSENT: rales, rhonchi, wheezes Cardiovascular exam: PRESENT: RRR. ABSENT: diastolic murmur, rubs, systolic murmur Pulses: PRESENT: normal dorsalis pedis pul Vascular exam: PRESENT: normal capillary refill GI/Abdominal exam: PRESENT: normal bowel sounds, soft. ABSENT: distended, guarding, mass, organolmegaly, rebound, tenderness Rectal exam: PRESENT: deferred Extremities exam: PRESENT: full ROM. ABSENT: calf tenderness, clubbing, pedal edema Neurological exam: PRESENT: alert, awake, oriented to person, oriented to place, oriented to time, oriented to situation, CN II-XII grossly intact. ABSENT: motor sensory deficit Psychiatric exam: PRESENT: appropriate affect, normal mood. ABSENT: homicidal ideation, suicidal ideation Skin exam: PRESENT: dry, intact, warm. ABSENT: cyanosis, rash Results Laboratory Results: WBC 3.5 10^3/uL (4.0-10.5) L 05/09/19 11:50 RBC 3.15 10^6/uL (3.72-5.28) L 05/09/19 11:50 Hgb 9.2 g/dL (12.0-15.5) L 05/09/19 11:50 Hct 26.9 % (36.0-47.0) L 05/09/19 11:50 MCV 85 fl (80-97) 05/09/19 11:50 MCH 29.3 pg (27.0-33.4) 05/09/19 11:50 MCHC 34.3 g/dL (32.0-36.0) 05/09/19 11:50 RDW 18.0 % (11.5-14.0) H 05/09/19 11:50 Plt Count 344 10^3/uL (150-450) 05/09/19 11:50 Lymph % (Auto) 7.2 % (13-45) L 05/08/19 15:05 Bee % (Auto) 15.1 % (3-13) H 05/08/19 15:05 Eos % (Auto) 0.2 % (0-6) 05/08/19 15:05 Baso % (Auto) 0.4 % (0-2) 05/08/19 15:05 Absolute Neuts (auto) 3.1 10^3/uL (1.7-8.2) 05/08/19 15:05 Absolute Lymphs (auto) 0.3 10^3/uL (0.5-4.7) L 05/08/19 15:05 Absolute Monos (auto) 0.6 10^3/uL (0.1-1.4) 05/08/19 15:05 Absolute Eos (auto) 0.0 10^3/uL (0.0-0.6) 05/08/19 15:05 Absolute Basos (auto) 0.0 10^3/uL (0.0-0.2) 05/08/19 15:05 Seg Neutrophils % 77.1 % (42-78) 05/08/19 15:05 Sodium 136.3 mmol/L (137-145) L 05/09/19 04:39 Potassium 3.3 mmol/L (3.6-5.0) L 05/09/19 04:39 Chloride 100 mmol/L (98-107) 05/09/19 04:39 Carbon Dioxide 30 mmol/L (22-30) 05/09/19 04:39 Anion Gap 6 (5-19) 05/09/19 04:39 BUN 10 mg/dL (7-20) 05/09/19 04:39 Creatinine 0.44 mg/dL (0.52-1.25) L 05/09/19 04:39 Est GFR ( Amer) > 60 (>60) 05/09/19 04:39 Est GFR (MDRD) Non-Af > 60 (>60) 05/09/19 04:39 Glucose 85 mg/dL (75-110) 05/09/19 04:39 Calcium 7.7 mg/dL (8.4-10.2) L 05/09/19 04:39 Total Bilirubin 0.6 mg/dL (0.2-1.3) 05/08/19 15:05 Direct Bilirubin 0.1 mg/dL (0.0-0.4) 05/08/19 15:05 Neonat Total Bilirubin Not Reportable 05/08/19 15:05 Neonat Direct Bilirubin Not Reportable 05/08/19 15:05 Neonat Indirect Bili Not Reportable 05/08/19 15:05 AST 18 U/L (14-36) 05/08/19 15:05 ALT 9 U/L (<35) 05/08/19 15:05 Alkaline Phosphatase 61 U/L (38-126) 05/08/19 15:05 Total Protein 6.9 g/dL (6.3-8.2) 05/08/19 15:05 Albumin 3.8 g/dL (3.5-5.0) 05/08/19 15:05 Lipase 26.1 U/L (23-300) 05/08/19 15:05 Urine Color NATALIE 05/08/19 23:46 Urine Appearance SLIGHTLY-CLOUDY 05/08/19 23:46 Urine pH 6.0 (5.0-9.0) 05/08/19 23:46 Ur Specific [place] 1.031 03/08/20 23:46 Urine Protein 100 mg/dL (NEGATIVE) H 05/08/19 23:46 Urine Glucose (UA) NEGATIVE mg/dL (NEGATIVE) 05/08/19 23:46 Urine Ketones 80 mg/dL (NEGATIVE) H 05/08/19 23:46 Urine Blood NEGATIVE (NEGATIVE) 05/08/19 23:46 Urine Nitrite (Reflex) NEGATIVE (NEGATIVE) 05/08/19 23:46 Urine Bilirubin NEGATIVE (NEGATIVE) 05/08/19 23:46 Urine Urobilinogen 4.0 mg/dL (<2.0) H 05/08/19 23:46 Leukocyte Esterase Rfl TRACE (NEGATIVE) H 05/08/19 23:46 Urine RBC (Auto) 4 /HPF 05/08/19 23:46 Urine WBC (Reflex) 22 /HPF 05/08/19 23:46 Squamous Epi Cells Auto 11 /HPF 05/08/19 23:46 U Non-Squamous Epis Auto 1 /HPF 05/08/19 23:46 Urine Mucus (Auto) MANY /LPF 05/08/19 23:46 Urine Ascorbic Acid NEGATIVE (NEGATIVE) 05/08/19 23:46 POC Gastric Occult Bld POSITIVE (NEGATIVE) 05/08/19 13:31 Blood Type O POSITIVE 05/08/19 15:05 Antibody Screen NEGATIVE 05/08/19 15:05 Crossmatch See Detail 05/08/19 15:05 Plan Time Spent: Less than 30 Minutes Stroke Is this a Stroke Patient?: No Acute Heart Failure - Is this a Heart Failure Patient?: No
[2019-05-09 16:41] VITALS: BP 106/72
== END 2019-05-09 17:05 | disposition home or self-care (01) | DRG 375 ==
LOC: ER 13:16 → EH 16:21 → 5 19:20
PROVIDERS: ADMIT Internal Medicine; ATTEND Internal Medicine
PROC: 30233N1 Transfusion of Nonautologous Red Blood Cells into Peripheral Vein, Percutaneous Approach (ICD-10-PCS; principal; 2019-05-08)
DX: C78.89 Secondary malignant neoplasm of other digestive organs (principal); D62 Acute posthemorrhagic anemia; C56.9 Malignant neoplasm of unspecified ovary; C79.9 Secondary malignant neoplasm of unspecified site; K92.0 Hematemesis; I10 Essential (primary) hypertension; Z80.0 Family history of malignant neoplasm of digestive organs; Z88.0 Allergy status to penicillin; Z88.2 Allergy status to sulfonamides; Z88.8 Allergy status to other drugs, medicaments and biological substances
CPT/HCPCS: 36415; 36430; 36591; 80048; 80053; 81001; 83690; 85025; 85027; 86850; 86900; 86901; 86920; 96361; 96374; 96375; 99285; C9113; J1170; J1642; J2060; J2405; J2550; J2765; J3490; J7030; P9016; S0028

== ENCOUNTER 2019-05-11 10:10 | Inpatient (IN) | payer BC ==
[2019-05-11 11:18] LABS: ABSOLUTE LYMPHOCYTES (AUTO) 0.2 10^3/uL (0.5-4.7); ABSOLUTE MONOCYTES (AUTO) 0.7 10^3/uL (0.1-1.4); BASOPHILS % (AUTO) 0.4 % (0-2); EOSINOPHILS % (AUTO) 0.7 % (0-6); HEMATOCRIT 24.8 % (36.0-47.0); HEMOGLOBIN 8.5 g/dL (12.0-15.5); MEAN CORPUSCULAR HEMOGLOBIN 29.9 pg (27.0-33.4); MEAN CORPUSCULAR HGB CONC 34.3 g/dL (32.0-36.0); MEAN CORPUSCULAR VOLUME 87 fl (80-97); MONOCYTES % (AUTO) 18.7 % (3-13); PLATELET COUNT 287 10^3/uL (150-450); RED BLOOD COUNT 2.84 10^6/uL (3.72-5.28); SEGMENTED NEUTROPHILS % (AUTO) 74.2 % (42-78); TOTAL CELLS COUNTED % (AUTO) 100 %
[2019-05-11 11:38] LABS: ALBUMIN 2.7 g/dL (3.5-5.0); ALKALINE PHOSPHATASE 52 U/L (38-126); ANION GAP 7 (5-19); ASPARTATE AMINO TRANSFERASE 14 U/L (14-36); BILIRUBIN,TOTAL 0.3 mg/dL (0.2-1.3); BLOOD UREA NITROGEN 14 mg/dL (7-20); CARBON DIOXIDE 28 mmol/L (22-30); CHLORIDE 100 mmol/L (98-107); GLUCOSE 110 mg/dL (75-110); POTASSIUM 3.6 mmol/L (3.6-5.0); TOTAL PROTEIN 5.2 g/dL (6.3-8.2)
[2019-05-11 11:40] LABS: CREATINE KINASE < 20 U/L (30-135)
[2019-05-11] MEDS ORDERED: ONDANSETRON HCL INJ/PF 4 MG/2 ML SDV IV ONE (11:48)
[2019-05-11] MEDS ORDERED: PANTOPRAZOLE SODIUM 40 MG VIAL IV ONE (11:49)
[2019-05-11 11:50] LABS: CREATINE KINASE MB < 0.22 ng/mL (<4.55); TROPONIN I < 0.012 ng/mL
[2019-05-11] MEDS ORDERED: FENTANYL CITRATE INJ/PF 100 MCG/2 ML AMPUL IV ONE ×2 (12:16→15:05)
--- NOTE | 2019-05-11 13:32 | RADIOLOGY REPORT (SQ) ---
EXAM DESCRIPTION: CTA CHEST COMPLETED DATE/TIME: 05/11/2019 12:51 pm REASON FOR STUDY: Dyspnea, CP, CA COMPARISON: CT abdomen pelvis dated 04/13/[address] chest dated 09/29/2017 TECHNIQUE: CT scan of the chest performed using helical scanning technique with dynamic intravenous contrast injection. Images reviewed with lung, soft tissue and bone windows. Reconstructed coronal and sagittal MPR images reviewed. Additional 3 dimensional post-processing performed to develop Maximal Intensity Projection images (HI P). All images stored on PACS. All CT scanners at this facility use dose modulation, iterative reconstruction, and/or weight based d osing when appropriate to reduce radiation dose to as low as reasonably achievable (ALARA). [facility]: Dose Right [facility]: CareDose [facility]: Dose Right [facility]: Teradose 4D [facility]: Healthways CONTRAST TYPE AND DOSE: contrast/concentration: Isovue 350.00 mg/ml; Total Contrast Delivered: 51.1 ml; Total Saline Delivered: 40.0 ml Contrast bolus adequate for pulmonary arteries and aorta. RENAL FUNCTION: BUN 14, creatinine 0.36 RADIATION DOSE: CT Rad equipment meets quality standard of care and radiation dose reduction techniq ues were employed. CTDIvol: 6.6 - 15.5 mGy. DLP: 546 mGy-cm. . LIMITATIONS: None. FINDINGS: LUNGS AND PLEURA: Left-sided pleural effusion is slightly larger in size when compared to August. Minimal left basilar atelectasis. No discrete pulmonary nodules. AORTA AND GREAT VESSELS: No aneurysm. Contrast bolus not optimized for the aorta. HEART: No pericardial effusion. No significant coronary artery calcifications. PULMONARY ARTERIES: No central pulmonary emboli. Smaller branches cannot be adequately evaluated due to timing of the bolus. HILAR AND MEDIASTINAL STRUCTURES: Necrotic appearing upper mediastinal lymph node. This measures 1.9 cm in size and is new from prior study. HARDWARE: [id number] is in place. UPPER ABDOMEN: Diaphragmatic lymph nodes are again noted increased in size from prior study. Numerou s abdominal metastases. Small contracted gallbladder. Free fluid in the upper abdomen. THYROID AND OTHER SOFT TISSUES: No masses. No adenopathy. BONES: No acute or significant finding. 3D MIPS: Confirm above findings. OTHER: No other significant finding. IMPRESSION: 1. Slight increase in size of the left pleural effusion when compared to prior study don e in 2017. 2. No central pulmonary emboli. Smaller branches cannot be adequately assessed due to timing of the bolus. 3. Extensive metastatic disease in the abdomen. Enlarging single mediastinal lymph node best demons trated on series 3, image 46 most likely representing metastatic disease. COMMENT: Quality ID # [id number]: Final reports with documentation of one or more dose reduction techniques (e.g., Automated exposure control, adjustment of the mA and/or kV according to patient size, use of iterative reconstruction technique) TECHNICAL DOCUMENTATION: JOB ID: [id number] 2010 [email or web address]- All Rights Reserved Reading location - IP/workstation name: [email or web address]-
--- NOTE | 2019-05-11 14:24 | ER Document Report ---
ED General - General Chief Complaint: Shortness Of Breath Stated Complaint: CHEST PRESSURE,BACK PAIN Time Seen by Provider: 05/11/19 11:36 TRAVEL OUTSIDE OF THE [place] IN LAST 30 DAYS: No - HPI Notes: Ms. 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 She returns now sent over from [facility] because of coffee-ground emesis and increasing shortness of breath and tachycardia. Patient is extremely nauseated and continued to vomit upon arrival here. She reports pain in the center of her epigastric area radiating into her back. She also has an element of pleuritic pain. Onset D - Related Data Allergies/Adverse Reactions: Penicillins Allergy (Severe, Verified 05/08/19 13:24) stop breathing, hives Sulfa (Sulfonamide Antibiotics) Allergy (Severe, Verified 05/08/19 13:24) Hives diphenhydramine [From Benadryl] Adverse Reaction (Severe, Verified 05/08/19 13:24) Anxiety Past Medical History - General Information source: Patient, Friend, [facility] Records - Social History Smoking Status: Never Smoker Frequency of alcohol use: None Drug Abuse: None Family History: CAD, Malignancy - Mother from liver cancer. Patient has suicidal ideation: No Patient has homicidal ideation: No - Past Medical History Cardiac Medical History: Reports: Hx Hypertension Denies: Hx Coronary Artery Disease, Hx Heart Attack Pulmonary Medical History: Denies: Hx Asthma, Hx Bronchitis, Hx COPD, Hx Pneumonia Neurological Medical History: Denies: Hx Cerebrovascular Accident, Hx Seizures Renal/ Medical History: Denies: Hx Peritoneal Dialysis Malignancy Medical History: Reports: Hx Ovarian Cancer Musculoskeletal Medical History: Denies Hx Arthritis Psychiatric Medical History: Denies: Hx Depression Past Surgical History: Reports: Hx Gynecologic Surgery - LEEP, Hx Herniorrhaphy, Hx Hysterectomy - Immunizations Immunizations up to date: Yes Hx Diphtheria, Pertussis, Tetanus Vaccination: No - Unsure Review of Systems - Review of Systems Notes: Constitutional: Negative for fever. HENT: Negative for sore throat. Eyes: Negative for visual changes. Cardiovascular: Negative for chest pain. Respiratory: Negative for shortness of breath. Gastrointestinal: As per HPI. Genitourinary: Negative for dysuria. Musculoskeletal: Negative for back pain. Skin: Negative for rash. Neurological: Negative for headaches, focal weakness or numbness. 10 point ROS negative except as marked above and in HPI. Physical Exam - Vital signs Vitals: BP 112/86 H 05/11/19 10:34 - Notes Notes: GENERAL: Middle-age female who is having active coffee-ground emesis and retching. SKIN: Pale. Good turgor no rashes. HEAD: Normocephalic atraumatic. EYES: PERRLA. EOMI. Conjunctivae and sclerae clear. EARS: CANALS AND TMS CLEAR. NOSE: CLEAR. MOUTH: Moist mucosa. Good dentition. No stridor or edema. No drooling. NECK: Supple. No masses or thyromegaly. No adenopathy. Carotids 2+ without bruits. No JVD. BACK: Symmetrical without tenderness. CHEST: Respirations unlabored. Breath sounds diminished left base and otherwise clear.. HEART: Regular rhythm. No murmur gallop or rub. ABDOMEN: Abdomen is mildly distended with tenderness epigastrium and left upper quadrant. No rebound. Bowel sounds are active. GENITALIA: Deferred. EXTREMITIES: No edema. No calf tenderness. Cap refill less than 1.5 seconds. Dorsalis pedis and posterior tibial pulses 3+ and symmetrical. NEUROLOGICAL: GCS 15. Alert and oriented x3. Fluent speech. Cranial nerves II through XII intact. Sensorimotor and cerebellar normal. Normal tone. PSYCHIATRIC: Flat anxious affect. Course - Re-evaluation Re-evalutation: 05/11/19 14:27 Patient's oncology team was concerned about pulmonary embolus. We got a CTA of the chest which shows no pulmonary embolus. She does have a left pleural effusion which is increasing in size. She has intra-abdominal abnormalities related to previously identified neoplasm. Her hemoglobin here today is 8.5 g which is down slightly from her discharge value. I have given Protonix IV and also Zofran IV. Patient is little more comfortable with this. She is however complaining of ongoing intermittent abdominal discomfort radiating into the back. I have given her 1 dose of fentanyl and give a second at this time. I think this lady is insignificant discomfort and needs to be admitted for pain management and observation of her hemoglobin. This is agreeable with patient. - Vital Signs Vital signs: Temp Pulse Resp BP Pulse Ox 98.2 F 108 H 17 124/84 100 05/12/19 16:22 05/12/19 16:22 05/12/19 16:22 05/12/19 16:22 05/12/19 16:22 - Laboratory Result Diagrams: 05/12/19 06:04 05/12/19 06:04 Laboratory results interpreted by me: 05/11/19 05/11/19 05/11/19 10:50 10:50 10:50 RBC 2.84 L Hgb 8.5 L Hct 24.8 L RDW 19.0 H Lymph % (Auto) 6.0 L [place] % (Auto) 18.7 H Absolute Lymphs (auto) 0.2 L D-Dimer 2.68 H Sodium 135.0 L Creatinine 0.36 L Calcium 8.0 L Creatine Kinase < 20 L Total Protein 5.2 L Albumin 2.7 L Crossmatch 05/11/19 12:36 RBC Hgb Hct RDW Lymph % (Auto) [place] % (Auto) Absolute Lymphs (auto) D-Dimer Sodium Creatinine Calcium Creatine Kinase Total Protein Albumin Crossmatch See Detail Discharge - Discharge Clinical Impression: Ovarian cancer Qualifiers: Laterality: unspecified laterality Qualified Code(s): C56.9 - Malignant neoplasm of unspecified ovary Hematemesis Qualifiers: Nausea presence: with nausea Qualified Code(s): K92.0 - Hematemesis Condition: Stable Disposition: ADMITTED INPATIENT Admitting Provider: Susie (Hospitalist) Unit Admitted: Medical Floor
[2019-05-11] MEDS ORDERED: METOCLOPRAMIDE HCL INJ/PF 10 MG/2 ML SDV IV ONE (15:04)
[2019-05-11] MEDS: DEXAMETHASONE SOD PHOSPHATE INJ 4 MG/1 ML VIAL IV SCH ×2 (15:55→21:28)
[2019-05-11] MEDS ORDERED: HYDROMORPHONE HCL INJ/PF 2 MG/ML AMPULE IV ONE (16:04)
[2019-05-11] MEDS ORDERED: METOCLOPRAMIDE HCL INJ/PF 10 MG/2 ML SDV IV PRN (16:05)
--- NOTE | 2019-05-11 17:29 | EKG REPORT ---
SEVERITY:- BORDERLINE ECG - SINUS TACHYCARDIA BORDERLINE T ABNORMALITIES, INFERIOR LEADS : Confirmed by: Kailey Swann 11-May-2019 17:29:07
--- NOTE | 2019-05-11 17:44 | PDOC H&P ---
History of Present Illness History of Present Illness: JAYLENE HENDERSON is a 38 year old female with a history of stage IV ovarian cancer who has been hospitalized recently and found to have a bleeding metastatic lesion in the her gastric antrum. She is not on a proton pump inhibitor. She has had radiation therapy to her stomach and also to a metastatic brain lesion, and she says she has had 8 days of that. She says that she gets nauseated after radiation, usually the day after. She is not been on any steroids. She presents today very nauseated and not able to keep anything down. She was not able to go to do radiation today. She is currently nauseated and complaining of some pain. Her hemoglobin is in its usual range but her pr imary issue today is that she is sick to her stomach and cannot hold anything down. Past Medical History Cardiac Medical History: Reports: Hypertension Denies: Coronary Artery Disease, Myocardial Infarction Pulmonary Medical History: Denies: Asthma, Bronchitis, Chronic Obstructive Pulmonary Disease (COPD), Pneumonia Neurological Medical History: Denies: Seizures Malignancy Medical History: Reports: Ovarian Cancer Musculoskeltal Medical History: Denies: Arthritis Psychiatric Medical History: Denies: Depression Hematology: Reports: Anemia Past Surgical History Past Surgical History: Reports: Herniorrhaphy, Hysterectomy Social History Smoking Status: Never Smoker Frequency of Alcohol Use: None Hx Recreational Drug Use: Yes Drugs: Marijuana Hx Prescription Drug Abuse: No Family History Family History: CAD, Malignancy - Mother from liver cancer. Parental Family History Reviewed: Yes Children Family History Reviewed: Yes Sibling(s) Family History Reviewed.: Yes Medication/Allergy Home Medications: Oxycodone HCl [Roxicodone] 10 mg PO Q4HP PRN 04/24/19 Pantoprazole Sodium 40 mg PO BID 42 Days #84 tablet. 04/27/19 Fentanyl [Duragesic 50 Mcg/Hr Transdermal Patch] 1 each TD Q3D 05/09/19 Ondansetron [Zofran Odt 4 mg Tablet] 4 mg PO Q4HP PRN 05/09/19 Promethazine HCl [Phenergan 25 mg Supp.rect] 1 supp [place] Q6HP PRN 05/09/19 Allergies/Adverse Reactions: Penicillins Allergy (Severe, Verified 05/08/19 13:24) stop breathing, hives Sulfa (Sulfonamide Antibiotics) Allergy (Severe, Verified 05/08/19 13:24) Hives diphenhydramine [From Benadryl] Adverse Reaction (Severe, Verified 05/08/19 13:24) Anxiety Review of Systems All systems: reviewed and no additional remarkable complaints except as stated - All systems were reviewed and were negative except as noted in the HPI Physical Exam Vital Signs: Temp Pulse Resp BP Pulse Ox 14 108/77 98 05/11/19 13:00 05/11/19 12:01 05/11/19 13:00 Intake & Output 05/10/19 05/11/19 05/12/19 06:59 06:59 06:59 Weight 71.3 kg General appearance: PRESENT: cooperative, disheveled, mild distress Head exam: PRESENT: atraumatic, normocephalic Eye exam: PRESENT: EOMI, PERRLA. ABSENT: conjunctival injection, nystagmus, scleral icterus Ear exam: PRESENT: normal external ear exam Mouth exam: PRESENT: dry mucosa, neck supple Throat exam: ABSENT: post pharyngeal erythema Neck exam: PRESENT: full ROM. ABSENT: carotid bruit, JVD, lymphadenopathy, men ingismus, tenderness, thyromegaly Respiratory exam: PRESENT: clear to auscultation mike, symmetrical, unlabored. ABSENT: accessory muscle use, chest wall tenderness, crackles, prolonged expiratory phas, retraction, rhonchi, tachypnea, wheezes Cardiovascular exam: PRESENT: tachycardia Pulses: PRESENT: normal carotid pulses Vascular exam: PRESENT: normal capillary refill GI/Abdominal exam: PRESENT: hyperactive bowel sounds, soft. ABSENT: distended, guarding, rebound, tenderness Extremities exam: ABSENT: clubbing, pedal edema Musculoskeletal exam: PRESENT: normal inspection. ABSENT: deformity Neurological exam: PRESENT: alert, awake, oriented to person, oriented to place, oriented to situation, CN II-XII grossly intact. ABSENT: motor sensory deficit Psychiatric exam: PRESENT: appropriate affect Skin exam: PRESENT: dry, warm Results Laboratory Results: 05/11/19 10:50 05/11/19 10:50 05/11/19 05/11/19 05/11/19 10:50 10:50 12:36 WBC 4.0 RBC 2.84 L Hgb 8.5 L Hct 24.8 L MCV 87 MCH 29.9 MCHC 34.3 RDW 19.0 H Plt Count 287 Seg Neutrophils % 74.2 Sodium 135.0 L Potassium 3.6 Chloride 100 Carbon Dioxide 28 Anion Gap 7 BUN 14 Creatinine 0.36 L Est GFR ( Amer) > 60 Glucose 110 Calcium 8.0 L Total Bilirubin 0.3 AST 14 Alkaline Phosphatase 52 Total Protein 5.2 L Albumin 2.7 L Blood Type O POSITIVE Antibody Screen NEGATIVE 05/11/19 05/11/19 05/11/19 10:50 10:50 16:41 Creatine Kinase < 20 L CK-MB (CK-2) < 0.22 Troponin I < 0.012 < 0.012 Impressions: Chest/Abdomen CTA 05/11/19 11:51 IMPRESSION: 1. Slight increase in size of the left pleural effusion when compared to prior study done in 2018. 2. No central pulmonary emboli. Smaller branches cannot be adequately assessed due to timing of the bolus. 3. Extensive metastatic disease in the abdomen. Enlarging single mediastinal lymph node best demonstrated on series 3, image 46 most likely representing metastatic disease. Assessment and Plan - Diagnosis (1) Vomiting Qualifiers: Vomiting type: bilious vomiting Nausea presence: with nausea Qualified Code(s): R11.14 - Bilious vomiting Is this a current diagnosis for this admission?: Yes Plan: Her hemoglobin has been in her usual range, but I think primarily she is having some vomiting that could be associated with her radiation therapy to the brain. I am to try her on a course of steroids, Decadron every 8 hours. In addition, we will give her Zofran and Reglan. We will put her on some IV fluids. (2) Primary cancer of ovary with widespread metastatic disease Qualifiers: Laterality: unspecified laterality Qualified Code(s): C56.9 - Malignant neoplasm of unspecified ovary; C80.0 - Disseminated malignant neoplasm, unspecified Is this a current diagnosis for this admission?: Yes Plan: She follows up with Dr. Francisco locally (3) Hematemesis Qualifiers: Nausea presence: with nausea Qualified Code(s): K92.0 - Hematemesis Is this a current diagnosis for this admission?: Yes Plan: She has had some chronic oozing but her blood counts are within her typical range. She was on Protonix twice a day at home, and will continue Protonix twice a day IV here and keep an eye on her blood counts. No need for endoscopic intervention at this time. - Time Time Spent with patient: 35 or more minutes - Inpatient Certification Based on my medical assessment, after consideration of the patient's comorbidities, presenting symptoms, or acuity I expect that the services needed warrant INPATIENT care.: Yes I certify that my determination is in accordance with my understanding of Medicare's requirements for reasonable and necessary INPATIENT services [42 CFR 412.3e].: Yes Medical Necessity: Failure to Improve With Outpatient Therapy, Significant Comorbidiites Make Outpatient Treatment Too Risky, Need Close Monitoring Due to Risk of Patient Decompensation, Need For IV Fluids, Need for Pain Control, Risk of Complication if Not Cared For in Hospital
[2019-05-11] MEDS: ONDANSETRON HCL INJ/PF 4 MG/2 ML SDV IV PRN (17:54)
[2019-05-11] MEDS: RINGERS SOLUTION,LACTATED 1,000 ML IV PRN (17:56)
[2019-05-11] MEDS ORDERED: PROMETHAZINE HCL INJ 25 MG/1 ML VIAL IV PRN (19:02)
[2019-05-11] MEDS ORDERED: LORAZEPAM INJ 2 MG/1 ML VIAL IV PRN (19:05)
[2019-05-11] MEDS: HYDROMORPHONE HCL INJ/PF 2 MG/ML AMPULE IV PRN (21:28)
[2019-05-11] MEDS: PANTOPRAZOLE SODIUM 40 MG VIAL IV SCH (21:28)
[2019-05-12] MEDS: HYDROMORPHONE HCL INJ/PF 2 MG/ML AMPULE IV PRN ×3 (01:33→11:56)
[2019-05-12] MEDS: RINGERS SOLUTION,LACTATED 1,000 ML IV PRN (06:11)
[2019-05-12] MEDS: DEXAMETHASONE SOD PHOSPHATE INJ 4 MG/1 ML VIAL IV SCH ×2 (06:11→15:35)
[2019-05-12 06:48] LABS: ANION GAP 5 (5-19); BLOOD UREA NITROGEN 10 mg/dL (7-20); CALCIUM 8.4 mg/dL (8.4-10.2); CARBON DIOXIDE 29 mmol/L (22-30); CHLORIDE 101 mmol/L (98-107); GLUCOSE 117 mg/dL (75-110); POTASSIUM 4.3 mmol/L (3.6-5.0)
[2019-05-12 07:00] LABS: HEMATOCRIT 21.7 % (36.0-47.0); MEAN CORPUSCULAR HEMOGLOBIN 29.5 pg (27.0-33.4); MEAN CORPUSCULAR HGB CONC 33.8 g/dL (32.0-36.0); MEAN CORPUSCULAR VOLUME 88 fl (80-97); PLATELET COUNT 282 10^3/uL (150-450); RED BLOOD COUNT 2.48 10^6/uL (3.72-5.28); RED CELL DISTRIBUTION WIDTH 19.5 % (11.5-14.0); WHITE BLOOD COUNT 3.2 10^3/uL (4.0-10.5)
[2019-05-12 07:01] LABS: HEMOGLOBIN 7.3 g/dL (12.0-15.5)
[2019-05-12] MEDS ORDERED: NORMAL SALINE 250 ML IV PRN (07:34)
--- NOTE | 2019-05-12 07:44 | PDOC CONSULTATION ---
Consultation Consult Date: 05/12/19 Provider Consulted: ESTEFANIA MUNOZ Consult reason:: Hematology/Oncology consultation was requested for patient on active treatment for metastatic ovarian cancer History of Present Illness Admission Date/PCP: 05/11/19 21:57 History of Present Illness: JAYLENE HENDERSON is a 38 year old female with multiple admissions to this institution over the past 2 months. She was initially diagnosed with metastatic ovarian cancer in 2017 and has been fighting this for quite some time. Most recently, she was found to have progression of disease and started on Topotecan 04/20/2019. However, shortly thereafter, she began bleeding from a tumor in her stomach. Radiation treatments were started. Today, she is due for treatment 11/09. She has had continued bleeding and nausea due to the gastric tumor. On 05/09/19 her HGB was 9.2 and today it is 7.3 Currently, she state that her pain and nausea are better controlled but she did not get any IV fluids for several hours. She is upset because it took so long to get her a bed yesterday and get her pain medications. Otherwise, she is feeling good and is anxious to go home. Past Medical History Cardiac Medical History: Reports: Hypertension Denies: Coronary Artery Disease, Myocardial Infarction Pulmonary Medical History: Denies: Asthma, Bronchitis, Chronic Obstructive Pulmonary Disease (COPD), Pneumonia Neurological Medical History: Denies: Seizures Malignancy Medical History: Reports: Ovarian Cancer Musculoskeltal Medical History: Denies: Arthritis Psychiatric Medical History: Denies: Depression Hematology: Reports: Anemia Past Surgical History Past Surgical History: Reports: Herniorrhaphy, Hysterectomy Social History Smoking Status: Never Smoker Frequency of Alcohol Use: None Hx Recreational Drug Use: Yes Drugs: Marijuana Hx Prescription Drug Abuse: No Family History Family History: CAD, Malignancy - Mother from liver cancer. Parental Family History Reviewed: Yes Children Family History Reviewed: Yes Sibling(s) Family History Reviewed.: Yes Medication/Allergy Home Medications: Oxycodone HCl [Roxicodone] 10 mg PO Q4HP PRN 04/24/19 Pantoprazole Sodium 40 mg PO BID 42 Days #84 tablet. 04/27/19 Fentanyl [Duragesic 50 Mcg/Hr Transdermal Patch] 1 each TD Q3D 05/09/19 Ondansetron [Zofran Odt 4 mg Tablet] 4 mg PO Q4HP PRN 05/09/19 Promethazine HCl [Phenergan 25 mg Supp.rect] 1 supp [place] Q6HP PRN 05/09/19 Allergies/Adverse Reactions: Penicillins Allergy (Severe, Verified 05/08/19 13:24) stop breathing, hives Sulfa (Sulfonamide Antibiotics) Allergy (Severe, Verified 05/08/19 13:24) Hives diphenhydramine [From Benadryl] Adverse Reaction (Severe, Verified 05/08/19 13:24) Anxiety Review of Systems Constitutional: PRESENT: headache(s). ABSENT: fever(s) Eyes: ABSENT: visual disturbances Ears: ABSENT: hearing changes Nose, Mouth, and Throat: ABSENT: sore throat Cardiovascular: PRESENT: chest pain Respiratory: PRESENT: dyspnea Gastrointestinal: PRESENT: hematemesis, nausea, vomiting Genitourinary: ABSENT: dysuria Musculoskeletal: ABSENT: back pain Integumentary: ABSENT: rash Neurological: PRESENT: dizziness, weakness Hematologic/Lymphatic: PRESENT: easy bleeding Physical Exam Vital Signs: Temp Pulse Resp BP Pulse Ox 97.5 F 114 H 16 110/99 H 100 05/12/19 01:43 05/12/19 01:43 05/12/19 01:43 05/12/19 01:43 05/12/19 01:43 Intake & Output 05/11/19 05/12/19 05/13/19 06:59 06:59 06:59 Intake Total 1159 Balance 1159 Weight 74.1 kg General appearance: PRESENT: no acute distress, well-developed, well-nourished Head exam: PRESENT: normocephalic Mouth exam: PRESENT: tongue midline Neck exam: ABSENT: lymphadenopathy, tenderness Respiratory exam: PRESENT: clear to auscultation mike, unlabored Cardiovascular exam: PRESENT: RRR GI/Abdominal exam: PRESENT: soft, tenderness - Epigastric Extremities exam: ABSENT: pedal edema Neurological exam: PRESENT: alert, awake Psychiatric exam: PRESENT: anxious, appropriate affect Skin exam: PRESENT: normal color Results Laboratory Results: 05/12/19 06:04 05/12/19 06:04 05/11/19 05/11/19 05/11/19 10:50 10:50 12:36 WBC 4.0 RBC 2.84 L Hgb 8.5 L Hct 24.8 L MCV 87 MCH 29.9 MCHC 34.3 RDW 19.0 H Plt Count 287 Seg Neutrophils % 74.2 Sodium 135.0 L Potassium 3.6 Chloride 100 Carbon Dioxide 28 Anion Gap 7 BUN 14 Creatinine 0.36 L Est GFR ( Amer) > 60 Glucose 110 Calcium 8.0 L Total Bilirubin 0.3 AST 14 Alkaline Phosphatase 52 Total Protein 5.2 L Albumin 2.7 L Blood Type O POSITIVE Antibody Screen NEGATIVE 05/12/19 05/12/19 06:04 06:04 WBC 3.2 L RBC 2.48 L Hgb 7.3 L Hct 21.7 L MCV 88 MCH 29.5 MCHC 33.8 RDW 19.5 H Plt Count 282 Seg Neutrophils % Sodium 134.6 L Potassium 4.3 Chloride 101 Carbon Dioxide 29 Anion Gap 5 BUN 10 Creatinine 0.32 L Est GFR ( Amer) > 60 Glucose 117 H Calcium 8.4 Total Bilirubin AST Alkaline Phosphatase Total Protein Albumin Blood Type Antibody Screen 05/11/19 05/11/19 05/11/19 10:50 10:50 16:41 Creatine Kinase < 20 L CK-MB (CK-2) < 0.22 Troponin I < 0.012 < 0.012 Impressions: Chest/Abdomen CTA 05/11/19 11:51 IMPRESSION: 1. Slight increase in size of the left pleural effusion when compared to prior study done in 2018. 2. No central pulmonary emboli. Smaller branches cannot be adequately assessed due to timing of the bolus. 3. Extensive metastatic disease in the abdomen. Enlarging single mediastinal lymph node best demonstrated on series 3, image 46 most likely representing metastatic disease. Assessment & Plan - Diagnosis (1) Hematemesis Qualifiers: Nausea presence: with nausea Qualified Code(s): K92.0 - Hematemesis Is this a current diagnosis for this admission?: Yes Plan: Now improved. Continue IV nausea meds. She states that she does well at home with Zofran ODT and phenergan suppositories. (2) Ovarian cancer Qualifiers: Laterality: unspecified laterality Qualified Code(s): C56.9 - Malignant neoplasm of unspecified ovary Is this a current diagnosis for this admission?: Yes Plan: Continue radiaiton treatments. Plan to restart Topotecan after radiation has completed. (3) Acute blood loss anemia Is this a current diagnosis for this admission?: Yes Plan: Patient agrees to transfusion today. I will arrange. If she is feeling well later today, OK for discharge.
[2019-05-12] MEDS: ONDANSETRON HCL INJ/PF 4 MG/2 ML SDV IV PRN (08:59)
[2019-05-12] MEDS: PANTOPRAZOLE SODIUM 40 MG VIAL IV SCH (08:59)
[2019-05-12] MEDS ORDERED: FENTANYL 50 MCG/HR PATCH.TD72 TD SCH (10:00)
[2019-05-12 14:00] VITALS: BP 124/84
--- NOTE | 2019-05-12 16:49 | PDOC DISCHARGE SUMMARY ---
Impression - Admit/DC Date/PCP Admission Date/Primary Care Provider: 05/11/19 21:57 Discharge Date: 05/12/19 - Discharge Diagnosis (1) Vomiting Is this a current diagnosis for this admission?: Yes (2) Primary cancer of ovary with widespread metastatic disease Is this a current diagnosis for this admission?: Yes (3) Hematemesis Is this a current diagnosis for this admission?: Yes - Additional Information Resuscitation Status: Full Code Discharge Diet: Regular Discharge Activity: Activity As Tolerated Prescriptions: Dexamethasone [Decadron 4 Mg Tablet] 4 mg PO ONCE #1 tablet Home Medications: Oxycodone HCl [Roxicodone] 10 mg PO Q4HP PRN 04/24/19 Pantoprazole Sodium 40 mg PO BID 42 Days #84 tablet. 04/27/19 Fentanyl [Duragesic 50 Mcg/Hr Transdermal Patch] 1 each TD Q3D 05/09/19 Ondansetron [Zofran Odt 4 mg Tablet] 4 mg PO Q4HP PRN 05/09/19 Promethazine HCl [Phenergan 25 mg Supp.rect] 1 supp [place] Q6HP PRN 05/09/19 Dexamethasone [Decadron 4 Mg Tablet] 4 mg PO ONCE #1 tablet 05/12/19 History of Present Illiness History of Present Illness: JAYLENE HENDERSON is a 38 year old female with a history of stage IV ovarian cancer who has been hospitalized recently and found to have a bleeding metastatic lesion in the her gastric antrum. She is not on a proton pump inhibitor. She has had radiation therapy to her stomach and also to a metastatic brain lesion, and she says she has had 8 days of that. She says that she gets nauseated after radiation, usually the day after. She is not been on any steroids. She presents today very nauseated and not able to keep anything down. She was not able to go to do radiation today. She is currently nauseated and complaining of some pain. Her hemoglobin is in its usual range but her primary issue today is that she is sick to her stomach and cannot hold anything down. Hospital Course Hospital Course: She responded very well to Decadron. She was able to eat and drink. Any nausea that she had afterwards was controlled by her usual medications. She got a radiation treatment here and so she only has 1 more left. I have given her a dose of Decadron to take before her radiation treatment. If she has any more nausea afterwards she is to contact her oncologist for further instruction. Her blood counts are still down a little bit and she only finished chemotherapy a couple weeks ago. And so she got a unit of blood. She already has follow-up scheduled for about a week and a half with oncology. Her labs and examination were reassuring she was discharged in stable condition. Physical Exam Vital Signs: Temp Pulse Resp BP Pulse Ox 98.2 F 108 H 17 124/84 100 05/12/19 16:22 05/12/19 16:22 05/12/19 16:22 05/12/19 16:22 05/12/19 16:22 Intake & Output 05/11/19 05/12/19 05/13/19 06:59 06:59 06:59 Intake Total 1159 0 Balance 1159 0 Weight 74.1 kg General appearance: PRESENT: no acute distress, cooperative, disheveled, obese Respiratory exam: PRESENT: clear to auscultation mike, symmetrical, unlabored. ABSENT: accessory muscle use, chest wall tenderness, crackles, prolonged expiratory phas, retraction, rhonchi, tachypnea, wheezes Cardiovascular exam: PRESENT: RRR, +S1, +S2 Pulses: PRESENT: normal carotid pulses GI/Abdominal exam: PRESENT: normal bowel sounds, soft. ABSENT: distended, guarding, rebound, tenderness Extremities exam: ABSENT: clubbing, pedal edema Musculoskeletal exam: PRESENT: normal inspection. ABSENT: deformity Neurological exam: PRESENT: alert, awake, oriented to person, oriented to place, oriented to situation Psychiatric exam: PRESENT: appropriate affect, normal mood Skin exam: PRESENT: dry, warm Results Laboratory Results: WBC 3.2 10^3/uL (4.0-10.5) L 05/12/19 06:04 RBC 2.48 10^6/uL (3.72-5.28) L 05/12/19 06:04 Hgb 7.3 g/dL (12.0-15.5) L 05/12/19 06:04 Hct 21.7 % (36.0-47.0) L 05/12/19 06:04 MCV 88 fl (80-97) 05/12/19 06:04 MCH 29.5 pg (27.0-33.4) 05/12/19 06:04 MCHC 33.8 g/dL (32.0-36.0) 05/12/19 06:04 RDW 19.5 % (11.5-14.0) H 05/12/19 06:04 Plt Count 282 10^3/uL (150-450) 05/12/19 06:04 Lymph % (Auto) 6.0 % (13-45) L 05/11/19 10:50 Antelope % (Auto) 18.7 % (3-13) H 05/11/19 10:50 Eos % (Auto) 0.7 % (0-6) 05/11/19 10:50 Baso % (Auto) 0.4 % (0-2) 05/11/19 10:50 Absolute Neuts (auto) 3.0 10^3/uL (1.7-8.2) 05/11/19 10:50 Absolute Lymphs (auto) 0.2 10^3/uL (0.5-4.7) L 05/11/19 10:50 Absolute Monos (auto) 0.7 10^3/uL (0.1-1.4) 05/11/19 10:50 Absolute Eos (auto) 0.0 10^3/uL (0.0-0.6) 05/11/19 10:50 Absolute Basos (auto) 0.0 10^3/uL (0.0-0.2) 05/11/19 10:50 Seg Neutrophils % 74.2 % (42-78) 05/11/19 10:50 D-Dimer 2.68 ug/mL (0.00-0.50) H 05/11/19 10:50 Sodium 134.6 mmol/L (137-145) L 05/12/19 06:04 Potassium 4.3 mmol/L (3.6-5.0) 05/12/19 06:04 Chloride 101 mmol/L (98-107) 05/12/19 06:04 Carbon Dioxide 29 mmol/L (22-30) 05/12/19 06:04 Anion Gap 5 (5-19) 05/12/19 06:04 BUN 10 mg/dL (7-20) 05/12/19 06:04 Creatinine 0.32 mg/dL (0.52-1.25) L 05/12/19 06:04 Est GFR ( Amer) > 60 (>60) 05/12/19 06:04 Est GFR (MDRD) Non-Af > 60 (>60) 05/12/19 06:04 Glucose 117 mg/dL (75-110) H 05/12/19 06:04 Calcium 8.4 mg/dL (8.4-10.2) 05/12/19 06:04 Total Bilirubin 0.3 mg/dL (0.2-1.3) 05/11/19 10:50 Direct Bilirubin 0.0 mg/dL (0.0-0.4) 05/11/19 10:50 Neonat Total Bilirubin Not Reportable 05/11/19 10:50 Neonat Direct Bilirubin Not Reportable 05/11/19 10:50 Neonat Indirect Bili Not Reportable 05/11/19 10:50 AST 14 U/L (14-36) 05/11/19 10:50 ALT 7 U/L (<35) 05/11/19 10:50 Alkaline Phosphatase 52 U/L (38-126) 05/11/19 10:50 Creatine Kinase < 20 U/L (30-135) L 05/11/19 10:50 CK-MB (CK-2) < 0.22 ng/mL (<4.55) 05/11/19 10:50 Troponin I < 0.012 ng/mL 05/11/19 16:41 Total Protein 5.2 g/dL (6.3-8.2) L 05/11/19 10:50 Albumin 2.7 g/dL (3.5-5.0) L 05/11/19 10:50 Blood Type O POSITIVE 05/11/19 12:36 Blood Type Confirm O POSITIVE 05/11/19 12:36 Antibody Screen NEGATIVE 05/11/19 12:36 Crossmatch See Detail 05/11/19 12:36 05/11/19 05/11/19 10:50 16:41 CK-MB (CK-2) < 0.22 Troponin I < 0.012 < 0.012 Impressions: Chest/Abdomen CTA 05/11/19 11:51 IMPRESSION: 1. Slight increase in size of the left pleural effusion when compared to prior study done in 2018. 2. No central pulmonary emboli. Smaller branches cannot be adequately assessed due to timing of the bolus. 3. Extensive metastatic disease in the abdomen. Enlarging single mediastinal lymph node best demonstrated on series 3, image 46 most likely representing metastatic disease. Plan Time Spent: Greater than 30 Minutes Stroke Is this a Stroke Patient?: No Acute Heart Failure - Is this a Heart Failure Patient?: No
== END 2019-05-12 16:55 | disposition home or self-care (01) | DRG 755 ==
LOC: ER 10:10 → EH 21:57 → 5 05-12 01:15
PROVIDERS: ADMIT Family Medicine; ATTEND Family Medicine
PROC: 30233N1 Transfusion of Nonautologous Red Blood Cells into Peripheral Vein, Percutaneous Approach (ICD-10-PCS; principal; 2019-05-12)
DX: C56.9 Malignant neoplasm of unspecified ovary (principal); C78.89 Secondary malignant neoplasm of other digestive organs; K92.0 Hematemesis; C79.31 Secondary malignant neoplasm of brain; D62 Acute posthemorrhagic anemia; J90 Pleural effusion, not elsewhere classified; E66.9 Obesity, unspecified; I10 Essential (primary) hypertension; R00.0 Tachycardia, unspecified; Z79.899 Other long term (current) drug therapy; Z80.0 Family history of malignant neoplasm of digestive organs; Z88.0 Allergy status to penicillin; Z88.2 Allergy status to sulfonamides; Z88.8 Allergy status to other drugs, medicaments and biological substances
CPT/HCPCS: 36415; 36430; 71275; 80048; 80053; 82550; 82553; 84484; 85025; 85027; 85379; 86850; 86900; 86901; 86920; 93005; 93010; 96374; 96375; 96376; 99285; C9113; J1100; J1170; J2060; J2405; J2550; J2765; J3010; J3490; J7120; P9016

== ENCOUNTER 2019-05-16 05:53 | Emergency (ER) | payer BC ==
[2019-05-16] MEDS ORDERED: ONDANSETRON HCL INJ/PF 4 MG/2 ML SDV IV ONE ×2 (06:01→14:57)
[2019-05-16] MEDS ORDERED: NORMAL SALINE 1000 ML 1,000 ML IV PRN (06:13)
[2019-05-16 06:23] LABS: MEAN CORPUSCULAR HEMOGLOBIN 28.7 pg (27.0-33.4); MEAN CORPUSCULAR HGB CONC 32.3 g/dL (32.0-36.0); MEAN CORPUSCULAR VOLUME 89 fl (80-97); PLATELET COUNT 242 10^3/uL (150-450); RED BLOOD COUNT 2.71 10^6/uL (3.72-5.28); RED CELL DISTRIBUTION WIDTH 20.9 % (11.5-14.0); WHITE BLOOD COUNT 13.4 10^3/uL (4.0-10.5)
[2019-05-16] MEDS ORDERED: METOCLOPRAMIDE HCL INJ/PF 10 MG/2 ML SDV IV ONE ×2 (06:28→11:23)
[2019-05-16] MEDS ORDERED: MORPHINE SULFATE 10 MG/ML INJ IV ONE (06:28)
[2019-05-16] MEDS ORDERED: LORAZEPAM INJ 2 MG/1 ML VIAL IV ONE (06:32)
[2019-05-16] MEDS ORDERED: HYDROMORPHONE HCL INJ/PF 2 MG/ML AMPULE IV ONE ×3 (06:34→12:47)
--- NOTE | 2019-05-16 06:35 | ER Document Report ---
ED GI/ - General Chief Complaint: Abdominal Pain Stated Complaint: VOMITING AND ABDOMINAL PAIN Time Seen by Provider: 05/16/19 06:13 Primary Care Provider: ESTEFANIA FRANCISCO MD [ACTIVE STAFF] - 05/18/19 1:00 pm Mode of Arrival: Medic Information source: Patient, Emergency Med Personnel, [facility] Records Notes: This 38-year-old female patient comes emergency room by EMS for nausea vomiting and abdominal pain for the past 2 days. She states she vomits what ever is in her abdomen, has been blood noted. She has been in the hospital several times in the past month for similar symptoms, requiring transfusion on at least 2 of the admissions. She suffers from stage IV ovarian cancer with diffuse abdominal metastases and some lung involvement. She was most recently admitted on 05/11/2019 and discharged on 05/12/2019. She reports she just finished radiation therapy on 05/13/2019. She is supposed to start chemo on 05/18/2019. She does remain a full code at this time. She states the pain is different than usual but she really cannot describe why. She states it comes and goes, that it is more severe, and she reports she is vomiting a lot. The pain is mostly in the upper abdomen. She does report that she feels like she is having a panic attack. The patient reports that she currently manages her pain with a 50 mcg fentanyl patch, and takes oxycodone 20 mg every 4 hours. TRAVEL OUTSIDE OF THE [place] IN LAST 30 DAYS: No - Related Data Allergies/Adverse Reactions: Penicillins Allergy (Severe, Verified 05/16/19 12:28) stop breathing, hives Sulfa (Sulfonamide Antibiotics) Allergy (Severe, Verified 05/16/19 12:28) Hives diphenhydramine [From Benadryl] Adverse Reaction (Severe, Verified 05/16/19 12:28) Anxiety Past Medical History - General Information source: Patient, Emergency Med Personnel, [facility] Records - Social History Smoking Status: Never Smoker Cigarette use (# per day): No Chew tobacco use (# tins/day): No Smoking Education Provided: No Frequency of alcohol use: None Drug Abuse: None Lives with: Family Family History: CAD, Malignancy - Mother from liver cancer. Patient has suicidal ideation: No Patient has homicidal ideation: No - Past Medical History Cardiac Medical History: Reports: Hx Hypertension Malignancy Medical History: Reports: Hx Ovarian Cancer GI Medical History: Reports: Hx Ulcer Psychiatric Medical History: Reports: Hx Anxiety Past Surgical History: Reports: Hx Gynecologic Surgery - LEEP, Hx Herniorrhaphy, Hx Hysterectomy, Other - Upper endoscopy w/ epi injection of bleeding gastric ulcer on 04/24/19 - Immunizations Immunizations up to date: Yes Hx Diphtheria, Pertussis, Tetanus Vaccination: No - Unsure Review of Systems - Review of Systems Constitutional: No symptoms reported EENT: No symptoms reported Cardiovascular: No symptoms reported Respiratory: No symptoms reported Gastrointestinal: See HPI, Abdominal pain, Vomiting, Blood in vomit Genitourinary: No symptoms reported Musculoskeletal: No symptoms reported Skin: No symptoms reported Neurological/Psychological: Anxiety Physical Exam - Vital signs Vitals: Temp Pulse Ox 99.1 F 94 05/16/19 05:54 05/16/19 05:54 Interpretation: Tachycardic - General General appearance: Alert, Anxious In distress: Mild - HEENT Head: Normocephalic, Atraumatic Eyes: Normal Pupils: PERRL Mucous membranes: Dry Pharynx: Normal Neck: Normal - Respiratory Respiratory status: No respiratory distress Breath sounds: Normal - Cardiovascular Rhythm: Regular, Tachycardia Heart sounds: Normal auscultation Murmur: No - Abdominal Inspection: Normal Bowel sounds: Normal Tenderness: Tender - Back Back: Normal - Extremities General upper extremity: Normal inspection General lower extremity: Normal inspection. No: Edema - Neurological Neuro grossly intact: Yes - Psychological Associated symptoms: Anxious - Skin Skin Temperature: Warm Skin Moisture: Dry Skin Color: Normal Course - Re-evaluation Re-evalutation: 05/16/19 06:35 The nurse reports the patient prefers not to get morphine that it "only gives me a head high". She does prefer Dilaudid. 05/16/19 12:43 Patient has received 1 unit of packed RBCs, she has gotten up and gone to the restroom to urinate. This time she states the nausea kind of comes and goes. She is comfortable. Her heart rate is 120 at rest. When she was discharged 4 days ago her heart rate was 108. - Vital Signs Vital signs: Temp Pulse Resp BP Pulse Ox 98.5 F 118 H 22 H 130/80 H 100 05/16/19 11:17 05/16/19 11:17 05/16/19 13:01 05/16/19 13:00 05/16/19 13:01 - Laboratory Result Diagrams: 05/16/19 06:08 05/16/19 06:08 Laboratory results interpreted by me: 05/16/19 05/16/19 05/16/19 06:08 06:08 07:00 WBC 13.4 H RBC 2.71 L Hgb 7.8 L Hct 24.0 L RDW 20.9 H Seg Neuts % (Manual) 90 H Lymphocytes % (Manual) 0 L Abs Neuts (Manual) 12.1 H Abs Lymphs (Manual) 0.0 L Sodium 134.7 L Chloride 96 L Creatinine 0.51 L Glucose 157 H Calcium 8.3 L Total Protein 5.4 L Albumin 2.6 L Crossmatch See Detail Discharge - Discharge Clinical Impression: Anemia Qualifiers: Anemia type: unspecified type Qualified Code(s): D64.9 - Anemia, unspecified Abdominal pain Qualifiers: Abdominal location: upper abdomen, unspecified Qualified Code(s): R10.10 - Upper abdominal pain, unspecified Primary cancer of ovary with widespread metastatic disease Qualifiers: Laterality: unspecified laterality Qualified Code(s): C56.9 - Malignant neoplasm of unspecified ovary Nausea and vomiting Qualifiers: Vomiting type: unspecified Vomiting Intractability: non-intractable Qualified Code(s): R11.2 - Nausea with vomiting, unspecified Condition: Stable Disposition: HOME, SELF-CARE Additional Instructions: Replace your 50 mcg fentanyl patch with the newly prescribed 75 mg no patch when you get home. Be sure to completely clean off the area under the patch you remove. Take the Reglan as prescribed to help control your nausea. You can also continue with the Phenergan suppositories you have. Drink small sips of cool clear liquids throughout the day to stay hydrated. Follow-up with Dr. Francisco tomorrow if not doing better. RETURN TO THE EMERGENCY ROOM IF ANY NEW OR WORSENING SYMPTOMS. Prescriptions: Fentanyl [Duragesic 75 Mcg/Hr Transdermal Patch] 1 each TD Q3D #2 patch.[id number] Metoclopramide HCl [Reglan 10 mg Tablet] 10 mg PO ASDIR PRN #15 tablet PRN Reason: Referrals: ESTEFANIA FRANCISCO MD [ACTIVE STAFF] - 05/18/19 1:00 pm
[2019-05-16 06:37] LABS: ALBUMIN 2.6 g/dL (3.5-5.0); ALKALINE PHOSPHATASE 69 U/L (38-126); ANION GAP 9 (5-19); ASPARTATE AMINO TRANSFERASE 23 U/L (14-36); BILIRUBIN,DIRECT 0.3 mg/dL (0.0-0.4); BILIRUBIN,TOTAL 0.8 mg/dL (0.2-1.3); BLOOD UREA NITROGEN 17 mg/dL (7-20); CALCIUM 8.3 mg/dL (8.4-10.2); CARBON DIOXIDE 30 mmol/L (22-30); CHLORIDE 96 mmol/L (98-107); GLUCOSE 157 mg/dL (75-110); POTASSIUM 3.9 mmol/L (3.6-5.0); TOTAL PROTEIN 5.4 g/dL (6.3-8.2)
[2019-05-16 06:54] LABS: HEMOGLOBIN 7.8 g/dL (12.0-15.5)
[2019-05-16 06:57] LABS: ABSOLUTE MONOCYTES # (MANUAL) 1.2 10^3/uL (0.1-1.4); BASOPHILS % (MANUAL) 0 % (0-2); EOSINOPHILS % (MANUAL) 1 % (0-6); LYMPHOCYTES % (MANUAL) 0 % (13-45); MONOCYTES % (MANUAL) 9 % (3-13); SEGMENTED NEUTROPHILS % (MAN) 90 % (42-78); TOTAL CELLS COUNTED 100
[2019-05-16 06:58] LABS: ANISOCYTOSIS 2+; OVALOCYTES SLIGHT; PLATELET COMMENT ADEQUATE; POIKILOCYTOSIS 1+; TEAR DROP CELLS SLIGHT
[2019-05-16] MEDS ORDERED: NORMAL SALINE 250 ML IV PRN (08:24)
--- NOTE | 2019-05-16 08:25 | EKG REPORT ---
SEVERITY:- BORDERLINE ECG - SINUS TACHYCARDIA BORDERLINE T ABNORMALITIES, DIFFUSE LEADS : Confirmed by: Kailey Swann 16-May-2019 08:24:35
[2019-05-16 16:03] VITALS: BP 125/83
== END 2019-05-16 16:02 | disposition home or self-care (01) ==
LOC: ER 05:53
DX: C56.9 Malignant neoplasm of unspecified ovary (principal); R10.10 Upper abdominal pain, unspecified; D64.9 Anemia, unspecified; R11.2 Nausea with vomiting, unspecified; C78.00 Secondary malignant neoplasm of unspecified lung; C79.89 Secondary malignant neoplasm of other specified sites; Z79.899 Other long term (current) drug therapy; Z88.0 Allergy status to penicillin; Z88.2 Allergy status to sulfonamides; Z88.8 Allergy status to other drugs, medicaments and biological substances; I10 Essential (primary) hypertension
CPT/HCPCS: 93005; 96376; 99284; 96361; 96374; 96375; 86900; 86901; 36415; 87040; 36430; 86850; 85025; 80053; 86920; 93010; P9016; J2765; J1170; J2060; J2405; J7030